=== PATIENT | female | born 1960 | race Caucasian/White ===

== ENCOUNTER 2020-05-23 14:22 | Outpatient (REF) | payer MEDICARE, MEDICAID, SELFPAY ==
--- NOTE | 2020-05-23 | MM_ITS ---
EXAMINATION: MM SCREENING DIGITAL BREAST TOMOSYNTHESIS, BILATERAL CLINICAL INFORMATION: Screening. Asymptomatic. The lifetime risk of breast cancer based on the Tyrer-Cuzick Model is 6%. COMPARISON: Mammography: 04/15/2019, 06/27/2017 TECHNIQUE: Digital breast tomosynthesis is performed in both the craniocaudal and mediolateral oblique views along with computer-aided detection (CAD). Synthesized 2D images are generated from the tomosynthesis. FINDINGS: There are scattered areas of fibroglandular density (ACR BI-RADS breast composition Category b). There are no significant masses, abnormal calcifications, or other abnormalities. The axilla and skin contours are unremarkable. No significant changes. MM/MM tomosynthesis screening BI IMPRESSION: No mammographic evidence of malignancy. ASSESSMENT: BI-RADS 1: Negative RECOMMENDATION: Routine annual mammography screening. This patient's information was entered into a reminder system with a target due date for their next mammogram.
== END 2020-05-23 14:23 | disposition home or self-care (01) ==
LOC: HO.MAMMO 14:22
PROVIDERS: Visit Provider Physician Assistant
DX: Z12.31 Encounter for screening mammogram for malignant neoplasm of breast (principal)
CPT/HCPCS: 77063; 77067

== ENCOUNTER → 2020-06-28 14:38 | Outpatient (BNVA) | payer MEDICARE, MEDICAID, SELFPAY | PROVIDERS: PCP Physician Assistant; Visit Provider Internal Medicine Gastroenterology | DX: Z76.89 Persons encountering health services in other specified circumstances (principal) ==

== ENCOUNTER 2020-07-05 10:00 | Outpatient (RCR) | payer MEDICARE, MEDICAID, SELFPAY | END 2020-07-07 23:55 | disposition home or self-care (01) | LOC: HO.PAOS 10:00 | PROVIDERS: Visit Provider Psychologist | DX: F31.60 Bipolar disorder, current episode mixed, unspecified (principal); F42.9 Obsessive-compulsive disorder, unspecified; F43.10 Post-traumatic stress disorder, unspecified; F44.89 Other dissociative and conversion disorders | CPT/HCPCS: 90834 ==

== ENCOUNTER → 2020-08-25 14:55 | Outpatient (BNVA) | payer MEDICARE, MEDICAID, SELFPAY | PROVIDERS: PCP Physician Assistant; Visit Provider Internal Medicine Gastroenterology | DX: Z13.89 Encounter for screening for other disorder (principal) | CPT/HCPCS: Q3014 ==

== ENCOUNTER → 2020-11-24 12:22 | Outpatient (BNVA) | payer MEDICARE, MEDICAID, SELFPAY | PROVIDERS: PCP Physician Assistant; Visit Provider Internal Medicine Gastroenterology | DX: Z13.89 Encounter for screening for other disorder (principal) | CPT/HCPCS: Q3014 ==

== ENCOUNTER → 2021-03-30 13:02 | Outpatient (BNVA) | payer MEDICARE, MEDICAID, SELFPAY | PROVIDERS: PCP Physician Assistant; Referring Provider Physician Assistant; Visit Provider Internal Medicine Gastroenterology | DX: Z12.11 Encounter for screening for malignant neoplasm of colon (principal); K59.02 Outlet dysfunction constipation; K59.09 Other constipation | CPT/HCPCS: 99212 ==

== ENCOUNTER 2021-04-19 12:33 | Outpatient (REF) | payer MEDICARE, MEDICAID, SELFPAY ==
--- NOTE | ~2021-04-19 | XR_ITS ---
EXAMINATION: XR ABDOMEN KUB CLINICAL INDICATION: Constipation. COMPARISON: None TECHNIQUE: AP view of the abdomen. FINDINGS: There is moderate gas and stool seen in colon without any distention. The small bowel are normal caliber. No radiopaque calculi or organomegaly. No gross bony abnormality seen. XR/XR KUB IMPRESSION: Moderate constipation.
== END 2021-04-19 12:34 | disposition home or self-care (01) ==
LOC: HO.XRAY 12:33
PROVIDERS: PCP Physician Assistant; Visit Provider Internal Medicine Gastroenterology
DX: K59.09 Other constipation (principal)
CPT/HCPCS: 74018

== ENCOUNTER 2021-06-30 14:43 | Outpatient (REF) | payer MEDICARE, MEDICAID, SELFPAY ==
--- NOTE | ~2021-06-30 | MM_ITS ---
EXAMINATION: MM SCREENING DIGITAL BREAST TOMOSYNTHESIS, BILATERAL CLINICAL INFORMATION: Screening. Asymptomatic. The lifetime risk of breast cancer based on the Tyrer-Cuzick Model is 6%. COMPARISON: Mammography: 05/23/2020, 05/15/2019, 06/27/2017 TECHNIQUE: Digital breast tomosynthesis is performed in both the craniocaudal and mediolateral oblique views along with computer-aided detection (CAD). Synthesized 2D images are generated from the tomosynthesis. FINDINGS: There are scattered areas of fibroglandular density (ACR BI-RADS breast composition Category b). There are no significant masses, abnormal calcifications, or other abnormalities. The axilla and skin contours are unremarkable. No developing density or interval significant changes. MM/MM tomosynthesis screening BI IMPRESSION: No mammographic evidence of malignancy. ASSESSMENT: BI-RADS 1: Negative RECOMMENDATION: Routine annual mammography screening. This patient's information was entered into a reminder system with a target due date for their next mammogram.
== END 2021-06-30 14:44 | disposition home or self-care (01) ==
LOC: HO.MAMMO 14:43
PROVIDERS: Visit Provider Physician Assistant
DX: Z12.31 Encounter for screening mammogram for malignant neoplasm of breast (principal)
CPT/HCPCS: 77063; 77067

== ENCOUNTER 2021-07-11 13:15 | Outpatient (REF) | payer MEDICARE, MEDICAID, SELFPAY | END 2021-07-11 13:16 | disposition home or self-care (01) | LOC: HO.LAB 13:15 | PROVIDERS: PCP Physician Assistant | DX: R32 Unspecified urinary incontinence (principal); N39.0 Urinary tract infection, site not specified | CPT/HCPCS: 51798; 87086; 87088; 87186; 99212 ==

== ENCOUNTER 2021-07-14 07:39 | Outpatient (REF) | payer MEDICARE, MEDICAID, SELFPAY ==
[2021-07-14 11:48] LABS: Alanine Aminotransferase 33 U/L (0-31); Albumin Level 4.2 g/dL (3.5-5.0); Alkaline Phosphatase 65 U/L (39-117); Anion Gap 10 (12-20); Aspartate Amino Transferase 30 U/L (5-31); Bilirubin Total 0.4 mg/dL (0.0-1.0); Blood Urea Nitrogen 26 mg/dL (9-16); Calcium 10.4 mg/dL (8.4-10.2); Carbon Dioxide 33 mmol/L (22-29); Chloride 103 mmol/L (96-108); Cholesterol 224 mg/dL; Estimated Average Glucose 103 mg/dL; Estimated Glomerular Filt Rate 35; Glucose Fasting 91 mg/dL (60-99); HDL Cholesterol 66 mg/dL; Hemoglobin A1c % 5.2 %; LDL Cholesterol Calculated 145 mg/dl; Potassium 4.3 mmol/L (3.3-5.1); Sodium 142 mmol/L (135-145); Total Protein 6.6 g/dL (6.5-8.0); Triglycerides 69 mg/dL
== END 2021-07-14 07:40 | disposition home or self-care (01) ==
LOC: HO.HMGCLDS 07:39
PROVIDERS: PCP Physician Assistant; Visit Provider Nurse Practitioner Family
DX: E78.9 Disorder of lipoprotein metabolism, unspecified (principal); R73.09 Other abnormal glucose
CPT/HCPCS: 36415; 80053; 80061; 83036

== ENCOUNTER → 2021-08-07 14:40 | Outpatient (BNVA) | payer MEDICARE, MEDICAID, SELFPAY | PROVIDERS: PCP Physician Assistant; Visit Provider Obstetrics & Gynecology ==

== ENCOUNTER 2021-08-18 13:54 | Outpatient (REF) | payer MEDICARE, MEDICAID, SELFPAY ==
--- NOTE | ~2021-08-18 | MM_ITS ---
EXAMINATION: BONE DENSITOMETRY CLINICAL INDICATION: Encounter for screening for osteoporosis. COMPARISON: This is the patient's baseline examination. TECHNIQUE: Using a [employer] DXA System (software version: 13.1) manufactured by [employer], dual-energy x-ray absorptiometry was performed of the lumbar spine and left hip. The images are of good technical quality. Summary results are attached. FINDINGS: AP SPINE L1-L4: BMD 1.021 g/cm2, Z-score -0.1, T-score -1.3, osteopenia. LEFT FEMUR, NECK: BMD 0.841 g/cm2, Z-score -0.2, T-score -1.4, osteopenia. LEFT FEMUR, TOTAL: BMD 0.899 g/cm2, Z-score 0.1, T-score -0.9, normal. IDENTIFIED RISK FACTORS: Renal, family history (parental hip fracture). Early menopause, secondary osteoporosis. HISTORY OF FRACTURE: None listed. MEDICATIONS: Calcium supplements or multivitamin, vitamin D. MM/XR DEXA axial skeleton IMPRESSION: 1. DIAGNOSIS: Osteopenia based on the lowest T-score value of -1.4 in the femoral neck applying World Health Organization criteria. 2. 10-YEAR FRACTURE RISK PREDICTION, FRAX: Major osteoporotic fracture (clinical spine, forearm, hip or shoulder) 15.0%. Hip fracture 0.8%. 3. Treatment Recommendations: NOF guidelines recommend consideration for treatment in postmenopausal women and men age 50 and older presenting with the following: -A hip or vertebral (clinical or morphometric) fracture. -T-score less than or equal to -2.5 at the femoral neck or spine after appropriate evaluation to exclude secondary causes. -Low bone mass at the hip or spine and a 10-year fracture probability by FRAX of greater than or equal to 3% for hip fracture or greater than or equal to 20% for major osteoporotic fracture based on the [place] adapted WHO algorithm. 4. Other Recommendations: All treatment decisions require clinical judgment and consideration of individual patient factors, including patient preferences, comorbidities, previous drug use, risk factors not captured in the FRAX model (e.g. frailty, falls, vitamin D deficiency, increased bone turnover, interval significant decline in bone density) and possible under or overestimation of fracture risk by FRAX. Additional medical evaluation for secondary cause of low bone mineral density may be appropriate. FUTURE SCAN RECOMMENDATION: People with diagnosed cases of osteoporosis or at high risk for fracture should have regular bone mineral density tests. For patients eligible for Medicare, routine testing is allowed once every 2 years. The testing frequency can be increased to one year for patients who have rapidly progressing disease, those who are receiving or discontinuing medical therapy to restore bone mass, or have additional risk factors.
== END 2021-08-18 13:55 | disposition home or self-care (01) ==
LOC: HO.MAMMO 13:54
PROVIDERS: Visit Provider Nurse Practitioner Family
DX: Z13.820 Encounter for screening for osteoporosis (principal); M85.80 Other specified disorders of bone density and structure, unspecified site; Z78.0 Asymptomatic menopausal state; Z79.899 Other long term (current) drug therapy
CPT/HCPCS: 77080

== ENCOUNTER 2021-09-13 13:00 | Outpatient (RCR) | payer MEDICARE, MEDICAID, SELFPAY ==
--- NOTE | 2021-08-02 15:50 | MHC.PT.EP ---
[facility] [place] Office [place] Office [place] Office [address] Nazanin Ledesma [address] [phone] F: [phone] F: [phone] F: [phone] F: [phone] Physical Therapy Plan of Care Date of Evaluation: Date of Surgery: Diagnosis: Assessment: The patient arrived reporting intermittent urinary incontinence, but more severe constipation and motility issues. The patient has level 1 on the [place] Stool Chart. She reports only 6 cups of water intake/day with 2 caffeinated beverages daily. she also takes a handful of medicines that may be affecting motility. She has poor sitting, standing posture. Poor strength and motor recruitment in her pelvic floor and poor breathing mechanics. Manual therapy to her abdomen revealed palpable stool in her descending colon. Adhesions noted at her umbilicus identified as poor tissue mobility around the umbilicus. She may benefit from abdominal/visceral mobilizations along with diet and lifestyle changes to improve motility. She is a good candidate for skilled pelvic floor PT. Frequency and Duration: The patient will be seen 1x/week x 4 weeks Short Term Goals: 1.The patient to demonstrate proper lifting mechanics for household chore activities to show improved functional mobility. 2. Pt to verbalize understanding of diet and lifestyle changes to facilitate motility. 3. Pt to initiate a gentle general exercise program to help with motility. Nursing Home Goals: 1. Pt to report improved motility to at least 3 bowel movements/week. 2. Pt to have no urinary incontinence in 2 weeks prior to d/c. 3. Pt to be independent with final HEP to maintain gains made in therapy. Treatment Plan: Modalities to reduce pain, spasms and effusion. Manual therapy to restore motion and function. Therapeutic exercise to improve strength and flexibility. Neuromuscular re-education for posture and balance. Therapeutic activities to return to functional activities of daily living. Electronically signed by: Please sign and return to therapist. Thank you for your referral.
--- NOTE | 2021-09-13 14:10 | MHC.PT.DC ---
[facility] [place] Office [place] Office [place] Office [address] Nazanin Ledesma 140 [facility] [phone] F: [phone] F: [phone] F: [phone] F: [phone] Physical Therapy Discharge Report Diagnosis: unspecified urinary incontinence Date of Surgery: Date of Evaluation: 08/02/21 Date of Discharge: 09/13/21 Treatments to Date: 6 Cancellations to Date: No Shows to Date: Discharge Status: Achieved Goals Improved Function Independent with HEP Discharge Summary: the patient reports no pelvic pain. She no longer has urinary incontinence. She still has poor motility which has not seemingly improved. Today the patient will be d/c for pelvic floor therapy. Next session we will add a diagnosis of scoliosis and we will begin a re evaluation and start a new plan of care. She met all of her goals other than her motility goal. She was given a printed HEP and demonstrated understanding of exercises. Electronically signed by: Jasmine Bae PT DPT Please sign and return to therapist. Thank you for your referral.
== END 2022-01-26 14:03 | disposition home or self-care (01) ==
LOC: HO.PT 13:00
PROVIDERS: PCP Physician Assistant
DX: N39.0 Urinary tract infection, site not specified (principal); R32 Unspecified urinary incontinence
CPT/HCPCS: 97110; 97112; 97140; 97162; 97530

== ENCOUNTER 2021-10-02 13:03 | Outpatient (RCR) | payer MEDICARE, MEDICAID, SELFPAY ==
--- NOTE | 2021-10-02 14:18 | MHC.PT.EP ---
[facility] [place] Office [place] Office [place] Office [address] Ledesma [address] [phone] F: [phone] F: [phone] F: [phone] F: [phone] Physical Therapy Plan of Care Date of Evaluation: Date of Surgery: NA Diagnosis: Other idiopathic scoliosis, site unspecified Assessment: Ragini is a 61 year old female who is referred to PT for other idiopathic scoliosis, site unspecified . She reports of recently being diagnosed with scolosis. She denies any pain or trauma. On PT examination she presents with no TTP or pain, significantly impaired posture, decreased scap muscle strength, B LE strength and core stability and altered posture. She is independent with all ADLS and has no difficulty with this. She would benefit from skilled PT to address the aforementioned impairments and improve tolerance to functional activities. Frequency and Duration: The patient will be seen 2/week for 5 weeks. Short Term Goals: 1. Pt will initiate HEP for symptom management in 2 weeks. 2. Pt will be able to move trunk through all planes motion without pain in 3 weeks Noc Analyst Goals: 1. Pt will be able self assess and correction posture every 15 minutes in 4 weeks. 2. Pt will be independent with HEP for maintenance of symptom/ posture in 5 weeks. Treatment Plan: Modalities to reduce pain, spasms and effusion. Manual therapy to restore motion and function. Therapeutic exercise to improve strength and flexibility. Neuromuscular re-education for posture and balance. Therapeutic activities to return to functional activities of daily living. Electronically signed by: Veronica St PT DPT Please sign and return to therapist. Thank you for your referral.
--- NOTE | 2021-10-13 08:39 | MHC.PT.DC ---
[facility] [place] Office [place] Office [place] Office [address] Nazanin Ledesma [address] [phone] F: [phone] F: [phone] F: [phone] F: [phone] Physical Therapy Discharge Report Diagnosis: Other idiopathic scoliosis, site unspecified Date of Surgery: NA Date of Evaluation: 10/02/21 Date of Discharge: 10/13/21 Treatments to Date: 1 Cancellations to Date: 0 No Shows to Date: 0 Discharge Status: Patient Elected to Stop Physician Discontinued Tx Discharge Summary: Ragini called a few days after her evaluation and d/c herself. She stated that her physician advised her to stop PT. She is therefore being d/c from PT. Electronically signed by: Veronica St PT DPT Please sign and return to therapist. Thank you for your referral.
== END 2021-10-13 08:39 | disposition home or self-care (01) ==
LOC: HO.PT 13:03
PROVIDERS: PCP Physician Assistant; Visit Provider Physician Assistant
DX: M41.20 Other idiopathic scoliosis, site unspecified (principal)
CPT/HCPCS: 97110; 97112; 97161

== ENCOUNTER 2021-10-02 14:26 | Outpatient (REF) | payer MEDICARE, MEDICAID, SELFPAY ==
--- NOTE | ~2021-10-02 | XR_ITS ---
EXAMINATION: XR SCOLIOSIS CLINICAL INFORMATION: Scoliosis. COMPARISON: Lumbar spine radiographs 03/26/2018. TECHNIQUE: A single view of the thoracolumbar spine is obtained. FINDINGS: Mild degenerative changes. There is scoliosis as follows: Left convex lower thoracic curvature measures 14 degrees. Right convex lumbar curvature measures 14 degrees. The left iliac crest is slightly higher than the right. The visualized lungs are clear. Moderate stool is seen in the colon. XR/XR scoliosis 1V IMPRESSION: Mild scoliosis as above.
== END 2021-10-02 14:27 | disposition home or self-care (01) ==
LOC: HO.XRAY 14:26
PROVIDERS: PCP Physician Assistant; Visit Provider Physician Assistant
DX: M41.20 Other idiopathic scoliosis, site unspecified (principal)
CPT/HCPCS: 72081

== ENCOUNTER → 2021-10-12 13:15 | Outpatient (BNVA) | payer MEDICARE, MEDICAID, SELFPAY | PROVIDERS: PCP Physician Assistant; Referring Provider Physician Assistant; Visit Provider Internal Medicine Gastroenterology | DX: K59.02 Outlet dysfunction constipation (principal) | CPT/HCPCS: 99212 ==

== ENCOUNTER → 2021-12-29 08:04 | Outpatient (BNVA) | payer MEDICARE, MEDICAID, SELFPAY | PROVIDERS: PCP Physician Assistant; Referring Provider Physician Assistant; Visit Provider Internal Medicine Gastroenterology | DX: K59.02 Outlet dysfunction constipation (principal) | CPT/HCPCS: 99212 ==

== ENCOUNTER → 2022-01-15 13:33 | Outpatient (BNVA) | payer MEDICARE, MEDICAID, SELFPAY | PROVIDERS: PCP Physician Assistant | DX: N32.81 Overactive bladder (principal) | CPT/HCPCS: 51798; 99212 ==

== ENCOUNTER 2022-02-05 08:24 | Outpatient (REF) | payer MEDICARE, MEDICAID, SELFPAY ==
[2022-02-05 11:35] LABS: Estimated Average Glucose 103 mg/dL; Hemoglobin A1c % 5.2 %
[2022-02-05 11:55] LABS: Alanine Aminotransferase 41 U/L (0-31); Albumin Level 4.1 g/dL (3.5-5.0); Alkaline Phosphatase 52 U/L (39-117); Anion Gap 10 (12-20); Aspartate Amino Transferase 30 U/L (5-31); Bilirubin Total 0.3 mg/dL (0.0-1.0); Blood Urea Nitrogen 32 mg/dL (9-16); Calcium 9.5 mg/dL (8.4-10.2); Carbon Dioxide 29 mmol/L (22-29); Chloride 104 mmol/L (96-108); Cholesterol 192 mg/dL; Estimated Glomerular Filt Rate 34; Glucose Fasting 103 mg/dL (60-99); HDL Cholesterol 75 mg/dL; LDL Cholesterol Calculated 108 mg/dl; Potassium 4.3 mmol/L (3.3-5.1); Sodium 139 mmol/L (135-145); Total Protein 6.2 g/dL (6.5-8.0); Triglycerides 46 mg/dL
[2022-02-05 12:03] LABS: TSH reflex Free T4 1.62 uIU/mL (0.32-4.0); Vitamin D 25-OH Total 49.3 ng/mL (>30)
== END 2022-02-05 08:25 | disposition home or self-care (01) ==
LOC: HO.HMGCLDS 08:24
PROVIDERS: Visit Provider Physician Assistant
DX: N18.30 Chronic kidney disease, stage 3 unspecified (principal); R73.09 Other abnormal glucose; E78.9 Disorder of lipoprotein metabolism, unspecified
CPT/HCPCS: 36415; 80053; 80061; 82306; 83036; 84443

== ENCOUNTER → 2022-07-13 09:46 | Outpatient (BNVA) | payer MEDICARE, MEDICAID, SELFPAY | PROVIDERS: PCP Physician Assistant; Referring Provider Physician Assistant; Visit Provider Internal Medicine Gastroenterology | DX: K59.02 Outlet dysfunction constipation (principal) | CPT/HCPCS: 99212 ==

== ENCOUNTER 2022-08-02 13:17 | Outpatient (REF) | payer MEDICARE, MEDICAID, SELFPAY ==
--- NOTE | ~2022-08-02 | MM_ITS ---
EXAMINATION: MM SCREENING DIGITAL BREAST TOMOSYNTHESIS, BILATERAL CLINICAL INFORMATION: Screening. Asymptomatic. The lifetime risk of breast cancer based on the Tyrer-Cuzick Model is 8%. COMPARISON: Mammography: 06/30/2021, 05/23/2020, TECHNIQUE: Digital breast tomosynthesis is performed in both the craniocaudal and mediolateral oblique views along with computer-aided detection (CAD). Synthesized 2D images are generated from the tomosynthesis. Additional right MLO view is provided. FINDINGS: There are scattered areas of fibroglandular density (ACR BI-RADS breast composition Category b). There are no significant masses, abnormal calcifications, or other abnormalities. No developing density or architectural abnormality. There are some fine vascular calcifications anterior outer left breast and mid central 12:00 right breast. The axilla are unremarkable. Skin contours are smooth. MM/MM tomosynthesis screening BI IMPRESSION: No mammographic evidence of malignancy. ASSESSMENT: BI-RADS 2: Benign RECOMMENDATION: Routine annual mammography screening. This patient's information was entered into a reminder system with a target due date for their next mammogram.
== END 2022-08-02 13:18 | disposition home or self-care (01) ==
LOC: HO.MAMMO 13:17
PROVIDERS: Visit Provider Physician Assistant
DX: Z12.31 Encounter for screening mammogram for malignant neoplasm of breast (principal)
CPT/HCPCS: 77063; 77067

== ENCOUNTER 2022-08-13 13:59 | Outpatient (REF) | payer MEDICARE, MEDICAID, SELFPAY ==
--- NOTE | ~2022-08-13 | US_ITS ---
EXAMINATION: US PELVIS CLINICAL INFORMATION: Uterine fibroid disease. COMPARISON: None available. TECHNIQUE: Ultrasound of the pelvis is performed using both transabdominal and transvaginal transducers along with Doppler. Transvaginal imaging is performed due to inadequate visualization transabdominally. FINDINGS: Uterus: The uterus is suboptimally visualized due to overlapping bowel gas, with dimensions are not obtained by the technologist. The endometrial stripe is not seen with certainty. The uterus is smooth in contour and has normal myometrial echogenicity. FIBROIDS: There are 2 fibroids seen. 1. Location: Lower body, myometrial. Size: 2.9 x 1.2 x 2.3 cm. Fibroid characteristics: Hypoechoic. 2. Location: Upper body, myometrial. Size: 2.8 x 2.2 x 2.5 cm. Fibroid characteristics: Heterogeneous echotexture. Adnexa: Both ovaries are nonvisualized. There is no pelvic ascites or fluid collection. No adnexal mass is seen. US/US pelvic and transvaginal IMPRESSION: 1. There is uterine fibroid disease. 2. The uterus is poorly defined. The endometrial stripe is nonvisualized. 3. The bilateral ovaries are nonvisualized.
== END 2022-08-13 14:00 | disposition home or self-care (01) ==
LOC: HO.HMGCX 13:59
PROVIDERS: PCP Physician Assistant; Visit Provider Internal Medicine Gastroenterology
DX: D25.9 Leiomyoma of uterus, unspecified (principal); K59.02 Outlet dysfunction constipation
CPT/HCPCS: 76830; 76856

== ENCOUNTER 2022-09-10 10:00 | Outpatient (RCR) | payer MEDICARE, MEDICAID, SELFPAY | END 2022-09-25 15:26 | disposition home or self-care (01) | LOC: HO.PT 10:00 | PROVIDERS: PCP Physician Assistant; Visit Provider Internal Medicine Gastroenterology | DX: K59.02 Outlet dysfunction constipation (principal) | CPT/HCPCS: 97112; 97140; 97162 ==

== ENCOUNTER → 2023-01-14 10:25 | Outpatient (BNVA) | payer MEDICARE, MEDICAID, SELFPAY | PROVIDERS: PCP Physician Assistant; Visit Provider Internal Medicine Gastroenterology | DX: K59.09 Other constipation (principal) | CPT/HCPCS: 99212 ==

== ENCOUNTER 2023-01-28 09:13 | Outpatient (REF) | payer MEDICARE, MEDICAID, SELFPAY ==
[2023-01-28 11:41] LABS: Hematocrit 38.8 % (37.0-47.0); Hemoglobin 12.7 g/dl (12.0-16.0); Mean Corpuscular HGB Conc 32.7 g/dl (31.0-35.0); Mean Corpuscular Hemoglobin 31.6 pg (27.0-33.0); Mean Corpuscular Volume 96.5 fL (80.0-98.0); Mean Platelet Volume 9.3 fL (9.4-12.3); Platelet Count 134 X10*3/uL (160-400); Red Blood Count 4.02 X10*6/uL (4.20-5.50); Red Cell Distribution Width 12.7 % (11.0-16.0); White Blood Count 2.8 X10*3/uL (4.8-10.8)
[2023-01-28 11:56] LABS: Alanine Aminotransferase 38 U/L (0-31); Albumin Level 4.1 g/dL (3.5-5.0); Alkaline Phosphatase 57 U/L (39-117); Anion Gap 12 (12-20); Aspartate Amino Transferase 33 U/L (5-31); Bilirubin Total 0.4 mg/dL (0.0-1.0); Blood Urea Nitrogen 31 mg/dL (9-16); Calcium 10.6 mg/dL (8.4-10.2); Carbon Dioxide 29 mmol/L (22-29); Chloride 105 mmol/L (96-108); Cholesterol 184 mg/dL; Estimated Glomerular Filt Rate 37; Glucose Fasting 91 mg/dL (60-99); HDL Cholesterol 68 mg/dL; LDL Cholesterol Calculated 105 mg/dl; Potassium 4.4 mmol/L (3.3-5.1); Sodium 142 mmol/L (135-145); Total Protein 6.7 g/dL (6.5-8.0); Triglycerides 58 mg/dL
[2023-01-28 12:13] LABS: TSH reflex Free T4 1.55 uIU/mL (0.32-4.0)
== END 2023-01-28 09:14 | disposition home or self-care (01) ==
LOC: HO.HMGCLDS 09:13
PROVIDERS: PCP Physician Assistant; Visit Provider Physician Assistant
DX: E78.9 Disorder of lipoprotein metabolism, unspecified (principal); N18.30 Chronic kidney disease, stage 3 unspecified; F32.A Depression, unspecified
CPT/HCPCS: 36415; 80053; 80061; 84443; 85027

== ENCOUNTER 2023-02-04 14:30 | Outpatient (AMB) | payer MEDICARE, MEDICAID, SELFPAY ==
[2023-02-04 14:37] VITALS: BP 112/70; PULSE 74; O2SAT 96; BMI 21.0
--- NOTE | 2023-02-04 14:37 | A.OFFPC_ITS ---
Vital Signs 02/04/23 14:37 Height 6 ft 1 in Weight 159 lb 0.4 oz BMI 21.0 BP 112/70 Blood Pressure Location Lt brachial Position Sitting Pulse 74 Pulse Source Pulse Oximeter Temp Source Skin Pulse Oximetry (%) 96 Oxygen Delivery Method Room Air Intake Visit Reasons: Annual exam Intake Note: Patient is here today for a physical. 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: No Allergies No Known Allergies [No Known Allergies*] Allergy (Verified 02/04/23 14:58) Medication List - Last Reconciled 02/04/23 by Sergo Villasenor PA-C amitriptyline 100 mg PO BEDTIME fluoxetine 20 mg PO DAILY lactulose 15 mL PO DAILY lamotrigine 150 mg PO DAILY lorazepam 0.5 mg PO BID PRN magnesium citrate 150 mL PO DAILY 2 days risperidone 4 mg PO BEDTIME Tobacco use date assessed: 02/04/23 Fall risk assessment: No Falls in past year Last assessed Fall Risk: 02/04/23 Dental Screening Dental Screen Date: 02/04/23 Did you have a dental visit in the last 12 months?: Yes Did you have a dental problem in the last 6 months where you did not have access to dental care?: No Was dental information given to patient?: Patient has dentist HPI Annual exam HPI Details patient is a 62-year-old female here today for annual physical ?. Patient has a past medical history significant for generalized anxiety disorder, impaired glucose metabolism, borderline high cholesterol, fibromyalgia, PTSD, chronic constipation. Concern--> reports over the last 9 months having a rash over her right lower abdomen. She reports the rash is very itchy and has not used any ocat-ozc-xaijtyd creams or ointments. .. Chronic constipation:? Continues to suffer with chronic constipation.? Patient also does have muscular pelvic floor dysfunction to which she has done physical therapy for ? Is followed by gastroenterology , has trialed Motegrity though feels it was not so effective .. 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 followed by a occupational medicine specialist.? Most recent creatinine 1.53 . Major depressive disorder:? Patient followed by a therapist and a psychiatrist who manages her mental health meds. She feels stable from a mental health point of view Mammogram: Done in July 2022 BI-RADS 2 Colon cancer screening- UTD With Colonoscopy - done in 2019 Vaccines: Up-to-date with tetanus vaccine, pneumonia vaccine, COVID and flu vaccines Laboratory Tests 11/07/18 02/05/22 01/28/23 10:33 08:32 09:19 WBC 2.8 L RBC 4.02 L Hgb 12.7 Plt Count 144 L 134 L Creatinine 1.53 H Fasting Glucose 103 H Calcium ALT 41 H Cholesterol LDL Cholesterol, C alc TSH 01/28/23 09:19 WBC RBC Hgb Plt Count Creatinine 1.42 H Fasting Glucose Calcium 10.6 H D ALT 38 H Cholesterol 184 LDL Cholesterol, C alc 105 TSH 1.55 ? PFSH Medical History Bipolar disorder Cervical cancer screening Chronic UTI Diabetes mellitus screening Osteoporosis screening Urinary incontinence Surgical History History of colonoscopy Hx of endoscopy Hx of tubal ligation Family History Father Family history of high blood pressure History of macular degeneration Mother Hx of type 2 diabetes mellitus Family history of Alzheimer's disease Social History Household Members: Spouse Housing: House Alcohol intake: never Patient Tobacco Use Status: Never used Tobacco Tobacco use type: Cigarette e-Cigarette/Vaping Use: Never Used Second Hand Smoke Exposure: No Current occupational status: disabled Cognitive needs: No Hearing needs: No Vision needs: No Female Reproductive History Menstrual Age of Menarche: 10 Questionnaire PHQ-9 Over the last 2 weeks, how often have you been bothered by any of the following problems? 1. Little interest or pleasure in doing things: several days (pt being treated ) 2. Feeling down, depressed, or hopeless: not at all 3. Trouble falling or staying asleep, or sleeping too much: not at all 4. Feeling tired or having little energy: not at all 5. Poor appetite or overeating: not at all 6. Feeling bad about yourself - or that you are a failure or have let yourself or your family down: not at all 7. Trouble concentrating on things, such as reading the newspaper or watching television: not at all 8. Moving or speaking so slowly that other people could have noticed. Or the opposite - being so fidgety or restless that you have been moving around a lot more than usual: not at all 9. Thoughts that you would be better off or of hurting yourself in some way: not at all Total score: 1 Depression Screening Interpretation: Negative 89736 - PHQ-9 Billing: Yes Source: Developed by Drs. Conner Bledsoe, Hoa Batista, Zoltan Hopper and colleagues, with an educational braeden from [employer]. Thrive Questionnaire Date Thrive assessed: 08/16/22 AUDIT C Alcohol Use Questionnaire (AUDIT-C) 1. How often do you have a drink containing alcohol?: Never 3. How often do you have six or more drinks on one occasion?: Never Total Score: 0 JORDI-7 AMB Questionnaire JORDI-7 Date JORDI - 7 assessed: 02/04/23 Feeling nervous, anxious, or on edge: 0 = Not at all Not being able to stop or control worryin = Not at all Worrying too much about different things: 0 = Not at all Trouble relaxin = Not at all Being so restless that it is hard to sit still: 0 = Not at all Becoming easily annoyed or irritable: 0 = Not at all Feeling afraid as if something awful might happen: 0 = Not at all Total JORDI-7 score (0-4 normal; 5-9 mild; 10-14 moderate; 15-21 severe): 0 Source: Developed by Drs. Conner Bledsoe, Hoa Batista, Zoltan Hopper and colleagues, with an educational braeden from [employer]. JORDI-7 Assessment Billing JORDI-7 Assessment Tool: JORDI-7 Assessment 27258 Review of Systems Const Denies body aches, Denies chills, Denies excessive sweating, Denies fatigue, Denies fever(s) and Denies headache(s) Eyes Denies blurry vision ENT Denies dysphagia, Denies vertigo, Denies dizziness, Denies headache(s), Denies hearing loss and Denies tinnitus Card Denies chest pain, Denies chest pain with activity, Denies syncope, Denies irregular heart rhythm and Denies dyspnea Resp Denies chest congestion, Denies cough, Denies hemoptysis, Denies dyspnea and Denies wheezing GI Denies abdominal pain, Denies melena, Denies hematochezia, Denies coffee ground emesis, Denies dysphagia, Denies diarrhea, Denies nausea and Denies vomiting Denies urinary frequency, Denies dysuria, Denies urinary hesitancy and Denies urinary urgency Musc Denies arthralgias, Denies limited range of motion, Denies muscle cramps and Denies muscle weakness Skin/Breast Denies rash and Denies skin ulcer Neuro Denies Abnormal speech present, Denies confusion, Denies vertigo, Denies dizziness, Denies syncope, Denies headache(s), Denies memory loss and Denies seizure-like activity Psych Denies anxiety, Denies confusion, Denies depression, Denies memory loss, Denies panic attacks and Denies paranoia Endo Denies excessive sweating, Denies fatigue, Denies flushing, Denies polydipsia and Denies polyuria Aller/Immun Denies wheezing Physical exam (Primary Care) Vital Signs: Last Vital Signs Pulse 74 02/04/23 14:37 BP 112/70 02/04/23 14:37 Pulse Ox 96 02/04/23 14:37 Oxygen Delivery Method Room Air 02/04/23 14:37 BMI result Body Mass Index 21.0 Tobacco/Smoking Status: Tobacco use Status Tobacco use date assessed 02/04/23 02/04/23 14:53 Patient Tobacco Use Status Never used Tobacco 02/04/23 14:37 Tobacco use type Cigarette 02/04/23 14:37 e-Cigarette/Vaping Use Never Used 02/04/23 14:37 PHQ-9: PHQ-9 Score PHQ-9: Total score 1 02/04/23 14:59 Depression Screening Interpretation: Negative Thrive Assessment: Date of Thrive Assessment Date Thrive assessed 08/16/22 02/04/23 14:37 Const General: cooperative, comfortable, no acute distress, alert and awake; No confusion Orientation/consciousness: oriented to person, oriented to place, patient oriented x3 and No confusion HENMT Head: Yes normocephalic Ears: external ears normal and TM's normal bilaterally Face and sinus: No sinus tenderness Mouth: Normal oral and palatal mucosa present and tongue normal Teeth and gingiva: dentition normal and gingiva normal Throat: Yes posterior oropharynx normal, Yes tonsils normal and Yes uvula midline Eyes Conjunctivae: conjunctivae normal Sclerae: sclerae normal Pupils: Equal, round and reactive pupils present EOM: EOMs intact bilaterally Direct Ophthalmoscopy: No no photophobia Neck Neck: Yes no lymphadenopathy, No tender and Yes no JVD Thyroid: Thyroid normal Carotids: no bruits Chest Chest palpation & inspection: no tenderness Resp Effort & Inspection: normal respiratory effort, no audible wheezes, not labored and no stridor Auscultation: no crackles, no rales, no rhonchi and no wheezes Cardio Jugular venous distension: no JVD Rate: regular rate, not bradycardic and not tachycardic Rhythm: regular rhythm Bruits: no carotid bruits Peripheral pulses: Peripheral pulses 2+ throughout GI Inspection: Yes normal to inspection, No abdominal wall ecchymosis and No visible herniation Palpation (GI): Soft to palpation, nontender, no guarding, not rigid and No hepatosplenomegaly present Auscultation: normoactive bowel sounds General: Yes no CVA tenderness Back/Spine/Pelvis Back: no CVA tenderness and No back tenderness Cervical Spine: cervical ROM normal Thoracic/Lumbar Spine: thoracic and lumbar spine normal to inspection, straight leg raise negative bilaterally, No thoraco-lumbar ROM limited and No lumbar spinal tenderness Skin Lesions: no lesions Rashes: no rashes Wounds: no wounds Neuro General: oriented to person, oriented to place, patient oriented x3, CN's II-XI intact bilaterally and No confusion Cranial nerves: Yes Equal, round and reactive pupils present and Yes Normal accommodation reflex present Cognition (Neuro): normal cognition Speech: No Abnormal speech present Gait exam (Neuro): Normal gait present Motor exam (neuro): 5/5 motor strength present throughout Extrem Right upper extremity: full ROM; no cyanosis Left upper extremity: full ROM; no cyanosis Right lower extremity: no edema Left lower extremity: no edema Psych Appearance: grossly normal Mental Status: mental status grossly normal Affect: normal affect Attitude: cooperative Thought process: Normal thought process present Assessment and Plan Assessment & Plan (1) Annual physical exam: Code(s): Z00.00 - Encounter for general adult medical examination without abnormal findings (2) Mild depression: Code(s): F32.0 - Major depressive disorder, single episode, mild Plan: Patient followed by Psychiatry who manages all of her mental health medications. She reports she is fairly stable on all her mental health medications at this time. (3) CKD (chronic kidney disease): Code(s): N18.9 - Chronic kidney disease, unspecified Qualifiers: Chronic kidney disease stage: stage 3 (moderate) Chronic kidney disease stage 3 subtype: unspecified whether 3a or 3b Qualified Code(s): N18.30 - Chronic kidney disease, stage 3 unspecified Plan: Patient is followed by Nephrology for her CKD stage 3 related to lithium use in the past. Most recent creatinine at 1.53. Will continue to avoid nephrotoxin medications. (4) PTSD (post-traumatic stress disorder): Code(s): F43.10 - Post-traumatic stress disorder, unspecified Plan: Again followed by mental therapist and a psychiatrist who manages her mental health medications. (5) Dermatitis: Code(s): L30.9 - Dermatitis, unspecified Plan: Will supply patient with hydrocortisone 1% to use on itchy rash. Orders: Orders Comprehensive [place]. Panel Fast 02/04/23 R73.09 - Other abnormal glucose Complete Blood Count no Diff 02/04/23 N18.30 - Chronic kidney disease, stage 3 unspecified PTHI 02/04/23 N18.30 - Chronic kidney disease, stage 3 unspecified Lipid Panel 02/04/23 E78.9 - Disorder of lipoprotein metabolism, unspecified Medications: New hydrocortisone 1% 1 appl topical TID 30 days PRN 28.4 grams 0RF skin irritation L30.9 - Dermatitis, unspecified Coding Level of Care Code Est Pt Prev Care 40-64y(43640) Diagnoses Annual physical exam Z00.00 Mild depression F32.0 CKD (chronic kidney disease) N18.30 Chronic kidney disease stage: stage 3 (moderate) Chronic kidney disease stage 3 subtype: unspecified whether 3a or 3b PTSD (post-traumatic stress disorder) F43.10 Dermatitis L30.9 Additional Codes JORDI-7 Assessment Billing - JORDI-7 Assessment Tool: JORDI-7 Assessment 05445 ([id number])
== END 2023-02-04 15:21 | disposition home or self-care (01) ==
PROVIDERS: Visit Provider Physician Assistant
DX: Z00.00 Encounter for general adult medical examination without abnormal findings (principal); F32.0 Major depressive disorder, single episode, mild; N18.30 Chronic kidney disease, stage 3 unspecified; F43.10 Post-traumatic stress disorder, unspecified; L30.9 Dermatitis, unspecified
CPT/HCPCS: 99396

== ENCOUNTER 2023-03-29 12:03 | Outpatient (AMB) | payer MEDICARE, MEDICAID, SELFPAY ==
--- NOTE | 2023-03-29 12:06 | MHC.OFFVIS ---
Intake Vital Signs 03/29/23 12:09 Height 6 ft 1 in Weight 154 lb 5.177 oz BMI 20.4 BP 120/80 Blood Pressure Location Lt brachial Position Sitting Pulse 67 Intake Visit Reasons: 4 month follow up Intake Note: Ragini presents in the office as a 4 month follow up. CC: She states that she is not having any concerns today! 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 TESTS: Hx of nml TSH, Ca mild elevated, stage III CKD (labs >1 yr old) ANAL rectal manometry: suspicious for pelvic floor dysfunction, type III, but nml BET colonoscopy: 2019--melanosis coli, Moderate diverticulosis, Moderate hemorrhoids Mr defecogram: --mild descent of anorectal jn but underestimate due to poor evacuation, 3 cm fibroid noted US - 08/20--x 2 myometrial fibroids noted about 3 cm each ? INTERIM: she is not taking any medication for her bowels, still never got motegrity? she feels ok and feels PT exercises finally kicking in mild momentary pain with defecation but bearable and mild no nausea or vomiting no dysphgia no acid reflux depression is well controlled with TCA and risperidone EXAM: GENERAL: The patient is well developed and nontoxic. VITAL SIGNS:see workflow HEENT: Nonicteric sclerae, PERRLA, EOMI. Oropharynx clear. Moist mucous membranes. Conjunctivae appear well perfused. No thyroid mass. CHEST: Chest wall is nontender. HEART: Regular rate and rhythm without murmurs. LUNGS: Clear to auscultation bilaterally. ABDOMEN: Soft, positive bowel sounds, tender upper and left side abdomen, no organomegaly.no flank tenderness SKIN: No rash, no excessive bruising, petechiae, or purpura. NEUROLOGIC: Cranial nerves II-XII intact without motor/sensory deficit. A/P: 1/ chronic constipation : ddx:pelvic floor dysfunction, colonic inertia, or combination of both, also SE of risperidone and TCA meds never seemed to have receivied motegrity PLAN: 1/ doing better, with PT-no further intervention at this time f/u prn ? ? ? PFSH Medical History Bipolar disorder Cervical cancer screening Chronic UTI Diabetes mellitus screening Osteoporosis screening Urinary incontinence Surgical History History of colonoscopy Hx of endoscopy Hx of tubal ligation Family History Father Family history of high blood pressure History of macular degeneration Mother Hx of type 2 diabetes mellitus Family history of Alzheimer's disease Social History Household Members: Spouse Housing: House Alcohol intake: never Patient Tobacco Use Status: Never used Tobacco Tobacco use type: Cigarette e-Cigarette/Vaping Use: Never Used Second Hand Smoke Exposure: No Current occupational status: disabled Cognitive needs: No Hearing needs: No Vision needs: No Female Reproductive History Menstrual Age of Menarche: 10 Physical Exam Vital Signs: Last Vital Signs Pulse 67 03/29/23 12:09 BP 120/80 03/29/23 12:09 BMI result Body Mass Index 20.4 Assessment & Plan Assessment & Plan (1) 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
[2023-03-29 12:09] VITALS: BP 120/80; PULSE 67; BMI 20.4
== END 2023-03-29 13:23 | disposition home or self-care (01) ==
PROVIDERS: PCP Physician Assistant; Visit Provider Internal Medicine Gastroenterology
DX: K59.02 Outlet dysfunction constipation (principal); K59.09 Other constipation
CPT/HCPCS: 99213

== ENCOUNTER → 2023-03-29 12:03 | Outpatient (BNVA) | payer MEDICARE, MEDICAID, SELFPAY | PROVIDERS: PCP Physician Assistant; Visit Provider Internal Medicine Gastroenterology | DX: K59.09 Other constipation (principal); K59.02 Outlet dysfunction constipation | CPT/HCPCS: 99212 ==

== ENCOUNTER 2023-04-08 13:21 | Outpatient (AMB) | payer MEDICARE, MEDICAID, SELFPAY ==
--- NOTE | 2023-04-08 13:20 | A.OFFVIS_ITS ---
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 Complaining of vaginal spotting over last many months. Last Pap/HPV was negative in 2019. Last Mammogram was in 08/20 was BI-RADS 2 Last colonoscopy was in 2019, the recommendation was to repeat in 10 years [facility] Medical History Urinary incontinence Chronic UTI Cervical cancer screening Osteoporosis screening Diabetes mellitus screening Bipolar disorder Surgical History Hx of tubal ligation Hx of endoscopy History of colonoscopy Family History Father Family history of high blood pressure History of macular degeneration Mother Hx of type 2 diabetes mellitus Family history of Alzheimer's disease Social History Household Members: Spouse Housing: House Alcohol intake: never Patient Tobacco Use Status: Never used Tobacco Tobacco use type: Cigarette e-Cigarette/Vaping Use: Never Used Second Hand Smoke Exposure: No Current occupational status: disabled Cognitive needs: No Hearing needs: No Vision needs: No Female Reproductive History Menstrual Age of Menarche: 10 Menopause type: natural Total pregnancies: 2 Full term: 2 Number of Living Children: 2 Date of Mammogram: 08/02/22 Review of Systems Const All systems reviewed & are unremarkable except as noted in HPI and below Card Reports as per HPI Resp Reports as per HPI GI Reports as per HPI and Reports no additional complaints Reports as per HPI Physical Exam Vital Signs: Last Vital Signs BP 116/70 04/08/23 13:21 BMI result Body Mass Index 20.4 Const General: cooperative, healthy appearing and comfortable Chest Chest palpation & inspection: normal inspection of the chest and normal palpation of entire chest wall Breast/axilla inspection: normal inspection of the breasts and normal inspection of the axillae Breast/axilla palpation: normal palpation of the breasts, normal palpation of the axillae and no axillary lymphadenopathy Resp Effort & Inspection: normal respiratory effort Auscultation: clear to auscultation bilaterally Percussion: percussion normal Cardio Palpation: normal PMI Rate: regular rate Rhythm: regular rhythm Heart sounds: no murmurs and no rubs Peripheral pulses: Peripheral pulses 2+ throughout GI Inspection: Yes normal to inspection Palpation (GI): Soft to palpation, nontender, no guarding, not rigid and No hepatosplenomegaly present Percussion: Yes normal to percussion Auscultation: normal bowel sounds Rectal Exam - Female: deferred General: Yes bladder normal to palpation External Female Exam: No lesion Speculum Exam - Vagina: normal appearance of the vagina, normal palpation, normal vaginal discharge and not erythematous Speculum Exam - Cervix: normal appearance of the cervix and normal palpation Bimanual exam- vagina & uterus: normal bimanual exam, normal palpation, uterine size normal, bladder normal to palpation, consistency normal and normal palpation Bimanual Exam- Adnexa, other: normal adnexae, no masses and no tenderness Assessment & Plan Assessment & Plan (1) Well woman exam: Code(s): Z01.419 - Encounter for gynecological examination (general) (routine) without abnormal findings Plan: Cotesting not indicated this year. Instructions given the patient to schedule next screening Mammogram in 08/21. Counseled the patient about the recommended dietary allowance of 1000 mg of Calcium & 600 IU of vitamin D. The patient was instructed to perform monthly self-breast exams and to schedule an annual exam in a year; All questions answered and the patient verbalized understanding. Instructed the patient to schedule annual exam in a year (2) Postmenopausal bleeding: Code(s): N95.0 - Postmenopausal bleeding Plan: Discussed with the patient the differential diagnosis of post menopausal bleeding with normal pelvic exam including but not limited to, endometrial hyperplasia, cancer, polyps and other causes; co testing done, recommended ultrasound to measure the endometrial stripe; discussed with the patient that if the endometrial thickness is 4 mm or less the negative predictive value of endometrial pathology is 99%, otherwise If endometrial thickness is more than 4 mm will proceed with endometrial sampling versus hysteroscopy D&C polypectomy depending on the ultrasound findings. Instructed the patient to schedule an ultrasound follow-up appointment in 2 weeks. All questions answered, the patient verbalized understanding and agreed with the plan. Orders: Orders US pelvic and transvaginal Today N95.0 - Postmenopausal bleeding Coding Level of Care Code Est Pt Prev Care 40-64y(85429) Diagnoses Well woman exam Z01.419 Postmenopausal bleeding N95.0
[2023-04-08 13:21] VITALS: BP 116/70; BMI 20.4
== END 2023-04-08 13:43 | disposition home or self-care (01) ==
LOC: HO.HWS 13:21
PROVIDERS: PCP Physician Assistant; Visit Provider Obstetrics & Gynecology
DX: Z01.419 Encounter for gynecological examination (general) (routine) without abnormal findings (principal); N95.0 Postmenopausal bleeding
CPT/HCPCS: 99396

== ENCOUNTER → 2023-04-08 13:21 | Outpatient (BNVA) | payer MEDICARE, MEDICAID, SELFPAY | PROVIDERS: PCP Physician Assistant; Visit Provider Obstetrics & Gynecology ==

== ENCOUNTER 2023-04-22 13:43 | Outpatient (REF) | payer MEDICARE, MEDICAID, SELFPAY ==
--- NOTE | ~2023-04-22 | US_ITS ---
EXAMINATION: US PELVIS COMPLETE US PELVIS ENDOVAGINAL CLINICAL INFORMATION: Is menopausal bleeding COMPARISON: Ultrasound pelvis from 08/13/2022 TECHNIQUE: Transabdominal and transvaginal images of the pelvis were obtained. FINDINGS: UTERUS: Anteverted. Normal size and contour, measuring approximately 2.9 x 4.1 cm (cervix to fundus x AP x transverse). Multiple uterine fibroids are noted largest measuring up to 1.8 cm. Uniform, homogeneous endometrium measures 0.1 cm in width. RIGHT OVARY: Right ovary not well visualized. No right adnexal masses or collections noted. LEFT OVARY: Left ovary not well visualized. No left adnexal masses or collections noted. FREE FLUID: Small amount of free fluid is noted. ADDITIONAL FINDINGS: Echogenic debris noted in the urinary bladder. US/US pelvic and transvaginal IMPRESSION: 1. Multiple uterine fibroids are noted largest measuring up to 1.8 cm. 2. Uniform, homogeneous endometrium measures 0.1 cm in width. 3. Small amount of free fluid in the pelvis. 4. Echogenic debris noted in the urinary bladder. 5. Bilateral ovaries not well visualized. No adnexal masses or collections noted.
== END 2023-04-22 13:44 | disposition home or self-care (01) ==
LOC: HO.US 13:43
PROVIDERS: PCP Physician Assistant; Visit Provider Obstetrics & Gynecology
DX: N95.0 Postmenopausal bleeding (principal)
CPT/HCPCS: 76830; 76856

== ENCOUNTER 2023-07-15 13:29 | Outpatient (REF) | payer MEDICARE, SELFPAY | END 2023-07-15 13:30 | disposition home or self-care (01) | LOC: HO.LNP 13:29 | PROVIDERS: PCP Physician Assistant; Visit Provider Obstetrics & Gynecology | DX: N95.0 Postmenopausal bleeding (principal); D25.9 Leiomyoma of uterus, unspecified; R93.41 Abnormal radiologic findings on diagnostic imaging of renal pelvis, ureter, or bladder | CPT/HCPCS: 58100; 88305 ==

== ENCOUNTER 2023-07-15 13:29 | Outpatient (AMB) | payer MEDICARE, SELFPAY ==
--- NOTE | 2023-07-15 13:35 | MHC.OFFVIS ---
Intake Vital Signs 07/15/23 13:38 Height 6 ft 1 in BP 110/74 Intake Visit Reasons: Ultrasound Follow up/DO NOT RS Allergies No Known Allergies [No Known Allergies*] Allergy (Verified 04/08/23 13:26) HPI HPI Comments History of Present Illness Details The patient is presenting for follow-up ultrasound regarding postmenopausal bleeding. Pelvic ultrasound showed the following: UTERUS: Anteverted. Normal size and contour, measuring approximately 2.9 x 4.1 cm (cervix to fundus x AP x transverse). Multiple uterine fibroids are noted largest measuring up to 1.8 cm. Uniform, homogeneous endometrium measures 0.1 cm in width. RIGHT OVARY: Right ovary not well visualized. No right adnexal masses or collections noted. LEFT OVARY: Left ovary not well visualized. No left adnexal masses or collections noted. FREE FLUID: Small amount of free fluid is noted. ADDITIONAL FINDINGS: Echogenic debris noted in the urinary bladder. [facility] Medical History Urinary incontinence Chronic UTI Cervical cancer screening Osteoporosis screening Diabetes mellitus screening Bipolar disorder Surgical History Hx of tubal ligation Hx of endoscopy History of colonoscopy Family History Father Family history of high blood pressure History of macular degeneration Mother Hx of type 2 diabetes mellitus Family history of Alzheimer's disease Social History Household Members: Spouse Housing: House Alcohol intake: never Patient Tobacco Use Status: Never used Tobacco Tobacco use type: Cigarette e-Cigarette/Vaping Use: Never Used Second Hand Smoke Exposure: No Current occupational status: disabled Cognitive needs: No Hearing needs: No Vision needs: No Female Reproductive History Menstrual Age of Menarche: 10 Review of Systems Const All systems reviewed & are unremarkable except as noted in HPI and below Reports as per HPI and Reports no additional complaints GI Reports no additional complaints Reports no additional complaints Physical Exam Vital Signs: Last Vital Signs BP 110/74 07/15/23 13:38 Office Procedures Endometrial Biopsy Details: The patient was counseled regarding the indication and benefits of endometrial sampling to rule out endometrial pathology including not limited to endometrial hyperplasia or endometrial cancer and others; The alternatives (Either do nothing vs. hysteroscopy D&C) & the risks were discussed with the patient including but not limited: pain, uterine perforation, bleeding, infection, possible injury to bladder, bowel, ureter, possible need for blood transfusion with all its possible risks. The patient verbalized understanding all questions answered and signed consent. The patient was placed into the dorsal lithotomy position; a speculum was inserted in the vagina. Using aseptic technique for the procedure, the cervix was cleansed with Betadine. The anterior lip of the cervix was grasped with a single tooth tenaculum. The uterus was sounded to 5 cm with a 4 mm Pipelle was used. Tissues samples were obtained and placed in formalin, in a patient labeled container and sent to the pathology department. At the end of the procedure, there was minimal bleeding noted The patient tolerated the procedure well and was discharged in good condition with the following instructions: Nothing in the vagina until the bleeding stops. No sex until the bleeding stops, to call if any of the following occurs: fever (>100.4), flu-like symptoms, abdominal pain, heavy bleeding, four smelling vaginal discharge. The patient was instructed to schedule a Follow up appointment in 2 weeks to discuss pathology results of the biopsy and treatment options. This note was generated with a voice recognition program. Some errors may have been overlooked during the review of this note. Sometimes these errors may affect the content or meaning of a given sentence. [id number] Biopsy Assessment & Plan Assessment & Plan (1) Postmenopausal bleeding: Comment: Recurrent Code(s): N95.0 - Postmenopausal bleeding Plan: Discussed the patient the finding on ultrasound showing a 1 mm endometrial thickness, since the patient is having recurrent episodes of vaginal bleeding recommended endometrial sampling. The negative predictive value, positive predictive value, Sensitivity, specificity of using ultrasound measurement of endometrial stripe to detecting endometrial pathology including hyperplasia , polyp or cancer were discussed with the patient. Recommended to the patient that the next step is an endometrial sampling via hysteroscopy D&C possible polypectomy versus endometrial biopsy to r/o endometrial pathology including hyperplasia or cancer. All the pros and cons risks and benefits of each approach were discussed with the patient, endometrial biopsy being less invasive, office procedure with less sensitivity and inability diagnose a polyp and removal versus hysteroscopy done under anesthesia more invasive more sensitive to endometrial cancer and possibility of diagnosing and endometrial polyp with the possibility of polypectomy. All questions were answered pt verbalized understanding and decided to proceed with endometrial biopsy. EMB done, see procedure note (2) Uterine fibroid: Code(s): D25.9 - Leiomyoma of uterus, unspecified Plan: Discussed with the patient the findings on pelvic ultrasound & the risk of myosarcoma; discussed with the patient the options of treatment including expectant management versus hysterectomy; the pros and cons, risks benefits of each approach were discussed with the patient including the fact that in cases of myosarcoma, surgical treatment can lead to early diagnosis and positively affects the prognosis; after further discussion, the patient decided to proceed with expectant management. Will repeat pelvic ultrasound periodically. Instructions given to patient to call in case any of the following occurs: pressure symptoms, abnormal uterine bleeding, pelvic pain; and to schedule a future office follow-up appointment for reassessment and to order a repeat ultrasound . All questions answered, the patient verbalized understanding and agreed with the plan . (3) Abnormal ultrasound of bladder: Code(s): R93.41 - Abnormal radiologic findings on diagnostic imaging of renal pelvis, ureter, or bladder Plan: Discussed the patient the finding on ultrasound showing Debris in the bladder, will refer to Urology for further management Orders: Orders AMB Endometrial Biopsy Today N95.0 - Postmenopausal bleeding Referrals Urology Referral R93.41 - Abnormal radiologic findings on diagnostic imaging of renal pelvis, ureter, or bladder Coding Level of Care Code Est Pt Level 3 (05545) Procedure Only Diagnoses Postmenopausal bleeding N95.0 Uterine fibroid D25.9 Abnormal ultrasound of bladder R93.41 CPT Codes Endometrial Biopsy - CPT: 27260-Oysrmfmfkgw Biopsy ([id number])
[2023-07-15 13:38] VITALS: BP 110/74
== END 2023-07-15 14:07 | disposition home or self-care (01) ==
LOC: HO.HWS 13:29
PROVIDERS: PCP Physician Assistant; Visit Provider Obstetrics & Gynecology
DX: N95.0 Postmenopausal bleeding (principal); D25.9 Leiomyoma of uterus, unspecified; R93.41 Abnormal radiologic findings on diagnostic imaging of renal pelvis, ureter, or bladder
CPT/HCPCS: 58100

== ENCOUNTER 2023-08-08 09:59 | Outpatient (REF) | payer MEDICARE, SELFPAY | END 2023-08-08 10:00 | disposition home or self-care (01) | LOC: HO.LNP 09:59 | PROVIDERS: PCP Physician Assistant; Visit Provider Obstetrics & Gynecology | DX: N95.0 Postmenopausal bleeding (principal) | CPT/HCPCS: 58100; 88305 ==

== ENCOUNTER 2023-08-08 09:59 | Outpatient (AMB) | payer MEDICARE, SELFPAY ==
--- NOTE | 2023-08-08 10:01 | A.OFFVIS_ITS ---
Intake Vital Signs 08/08/23 10:04 Height 6 ft 1 in Weight 154 lb 5.177 oz BMI 20.4 BP 118/76 Intake Visit Reasons: EMB results per [employer] Operator Required: No Information Interpreted: non-clinical & clinical Training And Development Officer: Training And Development Officer Present (Shelley Barros JOAN) Accompanied by: Self / Same As Patient Allergies No Known Allergies [No Known Allergies*] Allergy (Verified 08/08/23 10:05) Post menopausal: Yes HPI HPI Comments History of Present Illness Details The patient is presenting after endometrial biopsy. The patient has no complaints, no vaginal bleeding, no feverishness chills or abdominal pain. Endometrial biopsy pathology showed the following: Endometrium, biopsy: Superficial strips of atrophic squamous and endocervical epithelium; abundant blood; scant strips of atrophic endometrium; no atypia identified. See comment. COMMENT: Recommend repeat sampling, as clinically appropriate. [facility] Medical History Urinary incontinence Chronic UTI Cervical cancer screening Osteoporosis screening Diabetes mellitus screening Bipolar disorder Surgical History Hx of tubal ligation Hx of endoscopy History of colonoscopy Family History Father Family history of high blood pressure History of macular degeneration Mother Hx of type 2 diabetes mellitus Family history of Alzheimer's disease Social History Household Members: Spouse Housing: House Alcohol intake: never Patient Tobacco Use Status: Never used Tobacco Tobacco use type: Cigarette e-Cigarette/Vaping Use: Never Used Second Hand Smoke Exposure: No Current occupational status: disabled Cognitive needs: No Hearing needs: No Vision needs: No Female Reproductive History Menstrual Age of Menarche: 10 Review of Systems Const All systems reviewed & are unremarkable except as noted in HPI and below Physical Exam General: Yes no CVA tenderness External Female Exam: normal external appearance and normal appearance of the urethra Speculum Exam - Vagina: normal appearance of the vagina, normal palpation, no lesions and no masses Speculum Exam - Cervix: normal appearance of the cervix, normal palpation, no lesions, no masses and nontender Bimanual exam- vagina & uterus: normal bimanual exam, normal palpation, uterine size normal, normal palpation, uterine shape normal, No Cervical tenderness present and non-tender Bimanual Exam- Adnexa, other: normal adnexae Back/Spine/Pelvis Back: no CVA tenderness Office Procedures Endometrial Biopsy Details: The patient was counseled regarding the indication and benefits of endometrial sampling to rule out endometrial pathology including not limited to endometrial hyperplasia or endometrial cancer and others; The alternatives (Either do nothing vs. hysteroscopy D&C) & the risks were discussed with the patient including but not limited: pain, uterine perforation, bleeding, infection, possible injury to bladder, bowel, ureter, possible need for blood transfusion with all its possible risks. The patient verbalized understanding all questions answered and signed consent. The patient was placed into the dorsal lithotomy position; a speculum was inserted in the vagina. Using aseptic technique for the procedure, the cervix was cleansed with Betadine. The anterior lip of the cervix was grasped with a single tooth tenaculum. The uterus was sounded to 6 cm with a 4 mm Pipelle was used. Tissues samples were obtained and placed in formalin, in a patient labeled container and sent to the pathology department. At the end of the procedure, there was minimal bleeding noted The patient tolerated the procedure well and was discharged in good condition with the following instructions: Nothing in the vagina until the bleeding stops. No sex until the bleeding stops, to call if any of the following occurs: fever (>100.4), flu-like symptoms, abdominal pain, heavy bleeding, four smelling vaginal discharge. The patient was instructed to schedule a Follow up appointment in 2 weeks to discuss pathology results of the biopsy and treatment options. This note was generated with a voice recognition program. Some errors may have been overlooked during the review of this note. Sometimes these errors may affect the content or meaning of a given sentence. [id number] Biopsy Assessment & Plan Assessment & Plan (1) Postmenopausal bleeding: Comment: Recurrent Code(s): N95.0 - Postmenopausal bleeding Plan: Discussed with the patient the pathology results . Recommended to the patient that the next step is an endometrial sampling via hysteroscopy D&C possible polypectomy versus endometrial biopsy to r/o endometrial pathology including hyperplasia or cancer. All the pros and cons risks and benefits of each approach were discussed with the patient, endometrial biopsy being less invasive, office procedure with less sensitivity and inability diagnose a polyp and removal versus hysteroscopy done under anesthesia more invasive more sensitive to endometrial cancer and possibility of diagnosing and endometrial polyp with the possibility of polypectomy. All questions were answered pt verbalized understanding and decided to proceed with endometrial biopsy. Repeat EMB done see procedure note Orders: Orders AMB Endometrial Biopsy Today N95.0 - Postmenopausal bleeding Coding Level of Care Code Procedure Only Diagnoses Postmenopausal bleeding N95.0 CPT Codes Endometrial Biopsy - CPT: 71625-Xlxxfaeqpqx Biopsy ([id number])
[2023-08-08 10:04] VITALS: BP 118/76; BMI 20.4
== END 2023-08-08 10:26 | disposition home or self-care (01) ==
LOC: HO.HWS 09:59
PROVIDERS: PCP Physician Assistant; Visit Provider Obstetrics & Gynecology
DX: N95.0 Postmenopausal bleeding (principal)
CPT/HCPCS: 58100

== ENCOUNTER 2023-08-26 15:07 | Outpatient (AMB) | payer MEDICARE, SELFPAY ==
--- NOTE | 2023-08-26 15:08 | MHC.OFFVIS ---
Intake Vital Signs 08/26/23 15:10 Height 6 ft 1 in Weight 154 lb 5.177 oz BMI 20.4 BP 130/72 Intake Visit Reasons: EMB Results Allergies No Known Allergies [No Known Allergies*] Allergy (Verified 08/08/23 10:05) HPI HPI Comments History of Present Illness Details The patient is presenting for follow-up after 2nd endometrial biopsy. Doing well with no complaints. The patient was initially seen for postmenopausal bleeding, a pelvic ultrasound was done showed the following: UTERUS: Anteverted. Normal size and contour, measuring approximately 2.9 x 4.1 cm (cervix to fundus x AP x transverse). Multiple uterine fibroids are noted largest measuring up to 1.8 cm. Uniform, homogeneous endometrium measures 0.1 cm in width. RIGHT OVARY: Right ovary not well visualized. No right adnexal masses or collections noted. LEFT OVARY: Left ovary not well visualized. No left adnexal masses or collections noted. FREE FLUID: Small amount of free fluid is noted. ADDITIONAL FINDINGS: Echogenic debris noted in the urinary bladder The patient had recurrent vaginal bleeding, so an endometrial biopsy done on 07/15/2023 showed the following: Endometrium, biopsy: Superficial strips of atrophic squamous and endocervical epithelium; abundant blood; scant strips of atrophic endometrium; no atypia identified. See comment. COMMENT: Recommend repeat sampling, as clinically appropriate A repeat Endometrial biopsy done on 08/08/19, the pathology showed the following: Abundant blood with rare fragments of benign atrophic endometrium, endocervical glandular epithelium and squamous epithelium, and fragments of stroma (see comment). Comment: The specimen may not be financial services representative of the endometrium The patient has a history of endometrial ablation in the past. [facility] Medical History (Updated 08/26/23 @ 15:25 by Chet Burkett MD) Urinary incontinence Chronic UTI Cervical cancer screening Osteoporosis screening Diabetes mellitus screening Bipolar disorder Surgical History (Updated 08/26/23 @ 15:25 by Chet Burkett MD) History of endometrial ablation Hx of tubal ligation Hx of endoscopy History of colonoscopy Family History Father Family history of high blood pressure History of macular degeneration Mother Hx of type 2 diabetes mellitus Family history of Alzheimer's disease Social History Household Members: Spouse Housing: House Alcohol intake: never Patient Tobacco Use Status: Never used Tobacco Tobacco use type: Cigarette e-Cigarette/Vaping Use: Never Used Second Hand Smoke Exposure: No Current occupational status: disabled Cognitive needs: No Hearing needs: No Vision needs: No Female Reproductive History Menstrual Age of Menarche: 10 Review of Systems Const All systems reviewed & are unremarkable except as noted in HPI and below Reports as per HPI and Reports no additional complaints GI Reports no additional complaints Reports no additional complaints Physical Exam Vital Signs: Last Vital Signs BP 130/72 08/26/23 15:10 BMI result Body Mass Index 20.4 Assessment & Plan Assessment & Plan (1) Postmenopausal bleeding: Comment: Recurrent History of endometrial ablation Code(s): N95.0 - Postmenopausal bleeding Plan: Discussed with the patient the results of the 2 endometrial biopsies, both pathology reports stated that day may not be financial services representative from the endometrium. Explained to the patient the endometrial pathology including endometrial hyperplasia and/or malignancy has not been ruled out yet. Recommended referral to [facility] for further management. All questions answered, the patient verbalized understanding and agreed with the plan. Instructed the patient to call our office back in case a referral appointment is not scheduled, missed or canceled so that we will assist on rescheduling another appointment, the patient verbalized understanding agreed with the plan. Coding Level of Care Code Est Pt Level 3 (94628) Diagnoses Postmenopausal bleeding N95.0
[2023-08-26 15:10] VITALS: BP 130/72; BMI 20.4
== END 2023-08-26 15:47 | disposition home or self-care (01) ==
LOC: HO.HWS 15:07
PROVIDERS: PCP Physician Assistant; Visit Provider Obstetrics & Gynecology
DX: N95.0 Postmenopausal bleeding (principal)
CPT/HCPCS: 99213

== ENCOUNTER → 2023-08-26 15:07 | Outpatient (BNVA) | payer MEDICARE, SELFPAY | PROVIDERS: PCP Physician Assistant; Visit Provider Obstetrics & Gynecology | DX: N95.0 Postmenopausal bleeding (principal) | CPT/HCPCS: 99212 ==

== ENCOUNTER 2023-09-26 15:49 | Outpatient (AMB) | payer MEDICARE, SELFPAY ==
[2023-09-26 15:50] VITALS: BP 126/80; PULSE 66; O2SAT 98; BMI 20.3
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
== END 2023-09-26 16:37 | disposition home or self-care (01) ==
PROVIDERS: PCP Physician Assistant; Visit Provider Nurse Practitioner Family
DX: S61.412A Laceration without foreign body of left hand, initial encounter (principal)
CPT/HCPCS: 99213

== ENCOUNTER 2024-04-06 13:00 | Outpatient (RCR) | payer MEDICARE, SELFPAY ==
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
[2024-03-26 12:15] VITALS: BP 128/84; PULSE 63; TEMP 36.6
[2024-03-26 12:16] VITALS: BMI 19.9
--- NOTE | 2024-03-26 16:32 | HO.PHP ---
Client's case has been opened and reviewed in team.
--- NOTE | 2024-03-31 17:25 | P.HPPSP_ITS ---
HPI Date of Service: 03/31/24 Chief Complaint: PTSD,AUD Sources of Information: patient interviewed, chart reviewed and crisis/core team assessment reviewed HPI Narrative: Patient is a 63 yo female with history of Bipolar I Disorder, PTSD, OCD who was referred by her therapist. She has been maintained on current medication regime for many years including risperidone 4 mg qhs, lamotrigine 300 mg qhs, amitriptyline 200 mg qhs, fluoxetine 80 mg and lorazepam 0.5 mg TID prn anxiety. She reports her mood is a little depressed in the past 2 months, but indicates that anxiety is the reason she is here. She is hoping to work on coping skills, and notes that she is a bit flummoxed as to why she is having so much difficulty seeing as I have done a lot of DBT, I learned a lot of DBT skills but I'm having trouble using them or something...I'm just struggling . She complains that she is not getting as much out of groups as she used to during previous admissions in terms of coping skills, they dont do it like they used to but has difficulty articulating what is different now, drawing a blank for several seconds, she points out right now...like nothing. I'm not sure what I was trying to say . She shares that groups have been challenging because she is experiencing difficulty articulating thoughts/responses, information retrieval and experiencing word finding difficulty. When asked if anxiety is getting in the way, she initially agrees it could be this, although she denies any issues with somtic anxiety or panic attacks. She endorses generalized anxiety, but indicates most of her anxiety is centered around getting a little disorganized and then struggling with concentration, and spends most of the discussion talking about her anxiety as it relates to these cognitive problems. Aside from marital stressors which have mostly improved in the past few weeks since an argument with her was an initial factor to her recent exacerbation. She reports sleep is good. APpetite stable i've always been a picky eater . No change in weight. Past Psychiatric History: Reports history of manic episodes and IPLOC x1 around age 18 Previous [facility] admission in 2019 Has been maintained on current medication regime, anx specifically Lamictal 300 mg qhs, risperidone 4 mg qd, amitriptyline 200 mg qhs for at least 15-20 years. She is also on lorazepam 0.5- 1 mg prn PMFSH Medical History (Updated 04/01/24 @ 11:30 by Gypsy Roy MD) Urinary incontinence Chronic UTI Cervical cancer screening Osteoporosis screening Diabetes mellitus screening Bipolar disorder Narrative: chronic constipation CKD stage III s/p TL Denies seizures Denies concussions/TBI postmenopausal Surgical History (Updated 08/26/23 @ 15:25 by Chet Burkett MD) History of endometrial ablation Hx of tubal ligation Hx of endoscopy History of colonoscopy Social History: x 33 yrs, lives at home with . Reports things are good at home On disability since 2009 for MH and health issues Substance History: history of Alcohol addiction, 39 years sober Diagnostics Vital Signs (24Hr): BMI result Body Mass Index 19.9 Meds/Allergies Meds Home Medications ?Medication ?Instructions ?Recorded ?Confirmed ?Type amitriptyline 100 mg tablet 200 mg PO BEDTIME 06/28/20 03/26/24 History fluoxetine 20 mg capsule 80 mg PO DAILY 06/28/20 03/26/24 History lamotrigine 150 mg tablet 300 mg PO BEDTIME 06/28/20 03/26/24 History risperidone 4 mg tablet 4 mg PO BEDTIME 12/29/21 03/26/24 History lorazepam 0.5 mg tablet 0.5 mg PO TID PRN Anxiety 03/26/24 03/26/24 History Allergies Allergies Allergy/AdvReac Type Severity Reaction Status Date / Time No Known Allergies Allergy Verified 09/26/23 15:52 [No Known Allergies*] Mental Status Exam Mental Status Exam Narrative: She presents with flat affect (with moments of breakthrough affect), diminished blinking, delayed responses with appropriate answers to questions, paucity but overall logical content of thoughts no AH or VH. She describes having problems with expressive language, but denies any receptive language problem I hear the question, but I have no answer, my head is empty at that moment. Nothing is coming to my mind . She also complains of forgetfulness and some disorientation (forgetting why she got up or came to a room in the house). This she suspects has been going on for over a year, not new but also says I dont think it was this bad a few years ago . She says she will ask her . Patient presenting with s/s of drug-induced parkinsonism - masked face, and is e specially noted to be expressionless and still when thought blocked, slow to respond but ultimately does answer questions appropriately. She is aware of the pauses and relays that it is disruptive to her ability to think clearly, and her ability to communicate fluidly, and is bothersome to her. She reports her mood as anxious, little depressed. Denies any thoughts of harming self or others. No evidence of barrett or psychosis. Insight/judgment are fair but adequate. 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) r/o MCI related to other neurocognitive causes or medical conditions (eg nutri tional deficits) (4) OCD (obsessive compulsive disorder): Status: Acute Code(s): F42.9 - Obsessive-compulsive disorder, unspecified (5) PTSD (post-traumatic stress disorder): Status: Acute Code(s): F43.10 - Post-traumatic stress disorder, unspecified (6) Alcohol dependence in remission: Status: Acute Code(s): F10.21 - Alcohol dependence, in remission Plan Admit to [facility] VS reviewed: devorah, BP 128/84;?63 bpm patient apprehensive about making any medication changes, and I agree to reach out to her provider to review: First would lower dose of risperidone from 4 mg to 3 mg qhs (and can allow for remaining 1mg to be split and used as prn) to see if she can tolerate lower dose without causing destabilization may consider addition of low dose pramipexole high dose TCA likely contributing to chronic constipation for now continue regular medications?at current doses per patient preference Routine lab work ordered EKG, routine for baseline QTc for medication considerations UDS as indicated MassPat reviewed Continue to monitor as per protocol Patient educated on: diagnosis, medication risk/benefits, substance abuse and medical condition Informed Consent: understands Reason for continued partial hosp. stay Substantial Risk for: inability to function and med/psych decompensation Certification I certify that partial hospital treatment is medically necessary due to the symptoms and problems resulting from the patient's mental illness and the failure to treat the patient at the partial hospital level of care would likely result in the patient requiring inpatient psychiatric care which could not be prevented at a less intensive level of care. Time Spent With Patient Time: Total time managing care of this patient today _60___ minutes.
--- NOTE | 2024-04-02 12:53 | HO.PHP ---
Ragini left a voicemail stating that she is withdrawing herself from the program because she feels her issues are only minor. PHP staff were made aware and will be reaching out to complete the discharge.
== END 2024-04-06 23:59 | disposition home or self-care (01) ==
LOC: HO.PHPA 13:00
PROVIDERS: Visit Provider Psychiatry & Neurology Psychiatry
DX: F31.9 Bipolar disorder, unspecified (principal); F42.9 Obsessive-compulsive disorder, unspecified; F43.10 Post-traumatic stress disorder, unspecified; F41.1 Generalized anxiety disorder
CPT/HCPCS: 90791; 90853

== ENCOUNTER 2024-05-05 13:50 | Outpatient (REF) | payer MEDICARE, SELFPAY | END 2024-05-05 13:51 | disposition home or self-care (01) | LOC: HO.LAB 13:50 | PROVIDERS: PCP Physician Assistant; Visit Provider Urology | DX: N39.0 Urinary tract infection, site not specified (principal); B96.20 Unspecified Escherichia coli [E. coli] as the cause of diseases classified elsewhere | CPT/HCPCS: 81003; 87086; 87088; 87186; 99202 ==

== ENCOUNTER 2024-05-05 13:50 | Outpatient (AMB) | payer MEDICARE, SELFPAY ==
--- NOTE | 2024-05-05 14:00 | A.OFFVIS_ITS ---
Intake Visit Reasons: Pelvis US Finding(Echogenic debris) Intake Note: New patient is present for Pelvis Ultrasound Findings( Echogenic Debris) Patient was previous seen in Urology office in 2021 for Overactive Bladder and Urinary Tract Infections Last PVR 2021: 161 Wellness Nurse Required: No Accompanied by: Self / Same As Patient Allergies No Known Allergies [No Known Allergies*] Allergy (Verified 07/08/24 11:00) HPI Comments Details: Ragini is a pleasant female. She is a patient of Dr. Villasenor. 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 sciences instructor - only started recently Encouraged to use 3 times per week Plan office cystoscopy Bladder debris Transvaginal ultrasound - Echogenic debris noted in the urinary bladder Recurrent UTI E coli ampicillin and Cipro resistant 05/21 PFSH Medical History Urinary incontinence Chronic UTI Cervical cancer screening Osteoporosis screening Diabetes mellitus screening Bipolar disorder Surgical History History of endometrial ablation Hx of tubal ligation Hx of endoscopy History of colonoscopy Family History Father Family history of high blood pressure History of macular degeneration Mother Hx of type 2 diabetes mellitus Family history of Alzheimer's disease Social History Household Members: Spouse Housing: House Alcohol intake: never Patient Tobacco Use Status: Former Tobacco user Tobacco use type: Cigarette e-Cigarette/Vaping Use: Never Used Second Hand Smoke Exposure: No service: No Current occupational status: disabled Cognitive needs: No Hearing needs: No Vision needs: No Female Reproductive History Menstrual Age of Menarche: 10 Review of Systems Const Denies chills and Denies fever(s) Card Reports no additional complaints and Denies syncope Resp Denies cough GI Denies abdominal pain and Denies heartburn Reports as per HPI and Denies change in libido Neuro Denies syncope Psych Denies change in libido Endo Denies change in libido Physical Exam Const General: cooperative, healthy appearing, comfortable and no acute distress Orientation/consciousness: patient oriented x3 HEENT Face and sinus: Yes normal facial exam Mouth: moist mucous membranes Neck Neck: Yes normal visual inspection, Yes full ROM and Yes trachea midline Chest Chest palpation & inspection: normal inspection of the chest Resp Effort & Inspection: normal respiratory effort, able to speak in complete sentences and no respiratory distress GI Inspection: Yes normal to inspection Back/Spine/Pelvis Cervical Spine: normal cervical lordosis Thoracic/Lumbar Spine: thoracic and lumbar spine normal to inspection Skin General skin exam: no rashes or lesions noted Neuro General: patient oriented x3, gait normal, tone normal and moves all extremities Extrem General: Yes normal to inspection and Yes capillary refill normal Results AMB Urinalysis, Automated UA Leukoctes 500 Venecia/uL Last Edit by Karen Talamantes [facility] on 05/05/24 14:19 UA Nitrite Positive Last Edit by Karen Talamantes [facility] on 05/05/24 14:19 UA Urobilinogen 0.2 mg/dL Last Edit by Karen Talamantes [facility] on 05/05/24 14:1 9 UA Protein 0 mg/dL Last Edit by Karen Talamantes [facility] on 05/05/24 14:19 UA pH 7.0 Last Edit by Karen Talamantes [facility] on 05/05/24 14:19 UA Blood 10 Dylan/uL Last Edit by Karen Talamantes [facility] on 05/05/24 14:19 UA Specific Sherwood 1.010 Last Edit by Karen Talamantes [facility] on 05/05/24 14: 19 UA Ketone Negative Last Edit by Karen Talamantes [facility] on 05/05/24 14:19 UA Bilirubin 0 mg/dL Last Edit by Karen Talamantes [facility] on 05/05/24 14:19 UA Glucose 0 mg/dL Last Edit by Karen Talamantes [facility] on 05/05/24 14:19 Results Reviewed Results Reviewed: Laboratory Last Values Urine pH (Auto) 7.0 05/05/24 14:05 Specific Sherwood (Auto) 1.010 05/05/24 14:05 Urine Protein (Auto) 0 mg/dL 05/05/24 14:05 Glucose (UA)(Auto) 0 mg/dL 05/05/24 14:05 Urine Ketones (Auto) Negative 05/05/24 14:05 Urine Blood (Auto) 10 Dylan/uL 05/05/24 14:05 Urine Nitrite (Auto) Positive 05/05/24 14:05 Urine Bilirubin (Auto) 0 mg/dL 05/05/24 14:05 Urine Urobilinogen (Auto) 0.2 mg/dL 05/05/24 14:05 Leukocyte Esterase (Auto) 500 Venecia/uL 05/05/24 14:05 Assessment & Plan Assessment & Plan (1) Chronic UTI: Code(s): N39.0 - Urinary tract infection, site not specified Category: Medical Plan Office cystoscopy Orders: Orders AMB Post Void Residual by ultrasound 05/05/24 R32 - Unspecified urinary incontinence AMB Urinalysis Automated 05/05/24 Z13.9 - Encounter for screening, unspecified, N39.0 - Urinary tract infection, site not specified Urine Culture 05/05/24 N39.0 - Urinary tract infection, site not specified Patient Instructions: Imaging studies, laboratory and physical exam results were discussed and reviewed in detail. No major barriers to patient understanding were identified. An opportunity to ask questions regarding the treatment plan was provided. All questions were answered. The patient expressed understanding and agreement with the above treatment plan. The patient is aware they should contact our office by phone for worsening of their current condition or the appearance of new urologic symptoms. Compliance is encouraged with any medications and followup testing that is ordered. It is a privilege to participate in the urologic care of your patient. If you have any questions or concerns regarding treatment for the above conditions, or other urologic issues, please do not hesitate to contact me. The office telephone contact is [phone]. This note is constructed using voice recognition software. While every effort has been made to ensure accuracy portfolio accountant errors may have been included. Yours sincerely, Dr Umair Mojica MD, [facility] - Urology Providers of Expert, Compassionate Care for the Genitourinary System Coding Level of Care Code New Pt Level 3 (12879) Diagnoses Chronic UTI N39.0
== END 2024-05-05 14:48 | disposition home or self-care (01) ==
PROVIDERS: PCP Physician Assistant; Visit Provider Urology
DX: N39.0 Urinary tract infection, site not specified (principal)
CPT/HCPCS: 99203

== ENCOUNTER 2024-05-13 09:55 | Outpatient (AMB) | payer MEDICARE, SELFPAY ==
--- NOTE | 2024-05-13 10:06 | MHC.PC.OV ---
Vital Signs 05/13/24 10:07 Height 6 ft 1 in Weight 154 lb BMI 20.3 BP 142/90 H Blood Pressure Location Lt brachial Position Sitting Pulse 78 Pulse Source Pulse Oximeter Pulse Oximetry (%) 98 Oxygen Delivery Method Room Air Intake Visit Reasons: bone density test results - see comments Inside Channel Account Manager Required: No Accompanied by: Self / Same As Patient Allergies No Known Allergies [No Known Allergies*] Allergy (Verified 05/13/24 10:47) Medication List - Last Reconciled 05/13/24 by Sergo Villasenor PA-C conjugated estrogens (Premarin) vaginal DAILY fluoxetine 80 mg PO DAILY lamotrigine 300 mg PO BEDTIME lorazepam 0.5 mg PO TID PRN risperidone 4 mg PO BEDTIME sulfamethoxazole-trimethoprim 800-160 mg (Bactrim DS) 1 tab PO BID 5 days Tobacco use date assessed: 05/13/24 Fall risk assessment: No Falls in past year Last assessed Fall Risk: 05/13/24 Dental Screening Dental Screen Date: 05/13/24 Did you have a dental visit in the last 12 months?: Yes Did you have a dental problem in the last 6 months where you did not have access to dental care?: No Was dental information given to patient?: Patient has dentist HPI bone density test results - see comments HPI Details patient is a 64-year-old female here today for a follow-up visit ?. Patient has a past medical history significant for generalized anxiety disorder, impaired glucose metabolism, borderline high cholesterol, fibromyalgia, PTSD, chronic constipation She is interested in the results of her bone density screening in 2021 which did show osteopenia and a FRAX score of 15%. She is Willing to repeat bone density screening. Also noted a recent psych admission for worsening depression , disorganized thoughts and PTSD. Does seem that she has some what depressed today and she is very teary-eyed and often cries during exam. She has upcoming appointment with her psychiatrist to discuss her medication and how she is feeling. [facility] Medical History Urinary incontinence Chronic UTI Cervical cancer screening Osteoporosis screening Diabetes mellitus screening Bipolar disorder Surgical History History of endometrial ablation Hx of tubal ligation Hx of endoscopy History of colonoscopy Family History Father Family history of high blood pressure History of macular degeneration Mother Hx of type 2 diabetes mellitus Family history of Alzheimer's disease Social History Household Members: Spouse Housing: House Alcohol intake: never Patient Tobacco Use Status: Former Tobacco user Tobacco use type: Cigarette e-Cigarette/Vaping Use: Never Used Second Hand Smoke Exposure: No service: No Current occupational status: disabled Cognitive needs: No Hearing needs: No Vision needs: No Female Reproductive History Menstrual Age of Menarche: 10 Questionnaire PHQ-9 Over the last 2 weeks, how often have you been bothered by any of the following problems? 1. Little interest or pleasure in doing things: several days (pt being treated ) 2. Feeling down, depressed, or hopeless: not at all 3. Trouble falling or staying asleep, or sleeping too much: not at all 4. Feeling tired or having little energy: not at all 5. Poor appetite or overeating: not at all 6. Feeling bad about yourself - or that you are a failure or have let yourself or your family down: not at all 7. Trouble concentrating on things, such as reading the newspaper or watching television: not at all 8. Moving or speaking so slowly that other people could have noticed. Or the opposite - being so fidgety or restless that you have been moving around a lot more than usual: not at all 9. Thoughts that you would be better off or of hurting yourself in some way: not at all Total score: 1 Depression Screening Interpretation: Negative Depression Screening Done: Yes 42825 - PHQ-9 Billing: Yes Source: Developed by Drs. Conner Bledsoe, Hoa Batista, Zoltan Hopper and colleagues, with an educational braeden from [employer]. Thrive Questionnaire Date Thrive assessed: 05/13/24 I am a: Patient What is your living situation today?: I have a steady place to live Within the past 12 months, did the food you bought not last and you didn't have the money to get more?: Never true Within the past 12 months, did you worry whether your food would run out before you got money to buy more?: Never true Do you have trouble paying for medicines?: No Do you have trouble getting transportation to medical appointments?: No Do you have trouble paying your heating and electricity bill?: No Do you have trouble taking care of your child, family member or friend?: No Do you have trouble with day-to-day activities such as bathing, preparing meals, shopping, managing finances, etc.?: No Are you currently unemployed and looking for a job?: No Are you interested in more education?: No Please select the resources that you would like help with: None Currently or been in a relationship where the following occur: No concerns reported THRIVE Score: 0 AUDIT C Alcohol Use Questionnaire (AUDIT-C) 1. How often do you have a drink containing alcohol?: Never 3. How often do you have six or more drinks on one occasion?: Never Total Score: 0 JORDI-7 AMB Questionnaire JORDI-7 Date JORDI - 7 assessed: 05/13/24 Feeling nervous, anxious, or on edge: 0 = Not at all Not being able to stop or control worryin = Not at all Worrying too much about different things: 0 = Not at all Trouble relaxin = Not at all Being so restless that it is hard to sit still: 0 = Not at all Becoming easily annoyed or irritable: 0 = Not at all Feeling afraid as if something awful might happen: 0 = Not at all Total JORDI-7 score (0-4 normal; 5-9 mild; 10-14 moderate; 15-21 severe): 0 Source: Developed by Drs. Conner Bledsoe, Hoa Batista, Zoltan Hopper and colleagues, with an educational braeden from [employer]. JORDI-7 Assessment Billing JORDI-7 Assessment Tool: JORDI-7 Assessment 39822 Review of Systems Const Denies headache(s) Eyes Denies loss of vision ENT Denies vertigo, Denies dizziness, Denies headache(s) and Denies sore throat Card Denies chest pain, Denies leg edema and Denies lightheadedness Resp Denies cough, Denies hemoptysis and Denies wheezing GI Denies abdominal pain, Denies melena, Denies constipation, Denies diarrhea and Denies vomiting Denies urinary frequency, Denies dysuria and Denies urinary urgency Musc Denies arthralgias, Denies joint swelling, Denies numbness and Denies tingling Neuro Denies Abnormal speech present, Denies behavioral changes, Denies vertigo, Denies dizziness, Denies headache(s), Denies loss of vision, Denies memory loss, Denies numbness and Denies tingling Psych Denies anxiety, Denies behavioral changes, Denies depression, Denies memory loss and Denies panic attacks Zay/Lymph Denies easy bleeding and Denies easy bruising Aller/Immun Denies wheezing Physical exam (Primary Care) Vital Signs: Last Vital Signs Pulse 78 05/13/24 10:07 BP 142/90 H 05/13/24 10:07 Pulse Ox 98 05/13/24 10:07 Oxygen Delivery Method Room Air 05/13/24 10:07 BMI result Body Mass Index 20.3 Tobacco/Smoking Status: Tobacco use Status Tobacco use date assessed 05/13/24 05/13/24 10:17 Patient Tobacco Use Status Former Tobacco user 05/13/24 10:08 Tobacco use type Cigarette 05/13/24 10:08 e-Cigarette/Vaping Use Never Used 05/13/24 10:08 PHQ-9: PHQ-9 Score PHQ-9: Total score 1 05/13/24 10:27 Depression Screening Interpretation: Negative Thrive Assessment: Date of Thrive Assessment Date Thrive assessed 05/13/24 05/13/24 10:17 Currently or been in a relationship where the following occur: No concerns reported Const General: healthy appearing, no acute distress, alert and awake Nutritional Appearance: well nourished Orientation/consciousness: oriented to person, oriented to place and oriented to time HENAL Ears: TM's normal bilaterally General nose exam: Normal nasal mucous membranes and turbinates present Eyes Conjunctivae: conjunctivae normal Sclerae: sclerae normal Pupils: Equal, round and reactive pupils present Neck Neck: Yes no lymphadenopathy and Yes no JVD Thyroid: Thyroid normal Carotids: no bruits Resp Effort & Inspection: normal respiratory effort and not tachypneic Auscultation: no crackles, no rales, no rhonchi and no wheezes Cardio Rate: regular rate Rhythm: regular rhythm Heart sounds: no murmurs and normal S1 and S2 GI Palpation (GI): Soft to palpation, nontender, no hepatomegaly and no splenomegaly Auscultation: normal bowel sounds Skin General skin exam: no rashes or lesions noted and dry skin Neuro General: oriented to person, oriented to place and oriented to time Cranial nerves: Yes Equal, round and reactive pupils present Speech: No Abnormal speech present Gait exam (Neuro): Normal gait present Motor exam (neuro): no tremor noted Extrem Right upper extremity: full ROM Left upper extremity: full ROM Right lower extremity: full ROM; no edema Left lower extremity: full ROM; no edema Psych Mental Status: mental status grossly normal Speech and movement: Slowed speech present (Psych) and Slowed movement present (Neuro) Affect: Sad affect present and Blunted affect present Attitude: cooperative Thought process: Normal thought process present Office Procedures Flu Questionnaire Does the patient have a severe egg allergy?: No Does the patient have severe life threatening allergies?: No Does the patient have a fever or illness today?: No Has the patient ever had Guillain-[place] Syndrome?: No Has the patient ever had any past reaction to a flu shot?: No Immunizations Fluarix Triv 4400-5060 (PF) 45 mcg (15 mcg x 3)/0.5 mL IM syringe Performing Provider: Sergo Villasenor PA-C [facility] Administered by: TIMO Hearn on 05/13/24 10:09 Dose Route Admin Location Dispensed Lot Number Expiration Date [facility] Solar Manager 0.5 mL IM Left Deltoid 0.5 mL [id number] 01/25/25 [id number] sho[employer]LINE VIS Given Date VIS Provided VIS Publication Date 05/13/24 Single Vaccine 21 Eligibility Eligibility Date Funding Source Not [facility] Eligible 05/13/24 Private Coding Level of Care Code Est Pt Level 3 (82058) Diagnoses Osteopenia of neck of left femur M85.852 Laterality: left Osteopenia location: femoral neck Bipolar I disorder with depression F31.9 Additional Codes JORDI-7 Assessment Billing - JORDI-7 Assessment Tool: JORDI-7 Assessment 87475 ([id number]) Assessment & Plan Assessment & Plan (1) Osteopenia: Code(s): M85.80 - Other specified disorders of bone density and structure, unspecified site Category: Medical Qualifiers: Laterality: left Osteopenia location: femoral neck Qualified Code(s): M85.852 - Other specified disorders of bone density and structure, left thigh Plan: As per HPI patient's bone density in 2021 showing osteopenia and a moderate elevated FRAX score. She is willing to repeat testing. Did discuss the need to do weight-bearing exercises and perhaps try vitamin D and calcium supplementation. (2) Bipolar I disorder with depression: Code(s): F31.9 - Bipolar disorder, unspecified Category: Medical Plan: As per HPI patient does seem somewhat depressed today in office. She also seems very overwhelmed and has some delayed responses to my questions. She is teary eye today in office. She will be following up with her psychiatrist today to discuss her psychiatric symptoms Orders: Orders Lipid Panel 05/13/24 E78.9 - Disorder of lipoprotein metabolism, unspecified Comprehensive [place]. Panel Fast 05/13/24 N18.30 - Chronic kidney disease, stage 3 unspecified XR DEXA axial skeleton 05/13/24 M85.852 - Other specified disorders of bone density and structure, left thigh, Z78.0 - Asymptomatic menopausal state Complete Blood Count no Diff 05/13/24 E78.9 - Disorder of lipoprotein metabolism, unspecified Influenza [id number] Immunization 05/13/24 Z23 - Encounter for immunization
[2024-05-13 10:07] VITALS: BP 142/90; PULSE 78; O2SAT 98; BMI 20.3
== END 2024-05-13 10:57 | disposition home or self-care (01) ==
PROVIDERS: PCP Physician Assistant; Visit Provider Physician Assistant
DX: M85.852 Other specified disorders of bone density and structure, left thigh (principal); F31.9 Bipolar disorder, unspecified

== ENCOUNTER → 2024-05-13 09:55 | Outpatient (BNVA) | payer MEDICARE, SELFPAY | PROVIDERS: PCP Physician Assistant; Visit Provider Physician Assistant | DX: Z23 Encounter for immunization (principal); M85.852 Other specified disorders of bone density and structure, left thigh; F31.9 Bipolar disorder, unspecified | CPT/HCPCS: 90471; 90656; 96127; 99212 ==

== ENCOUNTER 2024-06-02 13:29 | Outpatient (REF) | payer MEDICARE, SELFPAY ==
--- NOTE | ~2024-06-02 | MM_ITS ---
EXAMINATION: BONE DENSITOMETRY CLINICAL INDICATION: Asymptomatic menopausal state. COMPARISON: Baseline BD dated 08/18/2021. TECHNIQUE: Using a Bazaart DXA System (software version: 13.1) manufactured by [employer], dual-energy x-ray absorptiometry was performed of the lumbar spine and left hip. The images are of good technical quality. Summary results are attached. FINDINGS: AP SPINE L1-L3 (excluding L4): The data of L1-L4 has been changed to exclude the L4 vertebral body, because degenerative sclerosis at this level may cause overestimation of lumbar spine density. Current: BMD 1.065 g/cm2, Z-score 0.6, T-score -0.9, normal, 9.7% increase from baseline (<5% change is not significant). Baseline: BMD 0.971 g/cm2. LEFT FEMUR, NECK: Current: BMD 0.840 g/cm2, Z-score 0.0, T-score -1.4, osteopenia. Baseline: BMD 0.841 g/cm2. LEFT FEMUR, TOTAL: Current: BMD 0.920 g/cm2, Z-score 0.5, T-score -0.7, normal, 2.3% increase from baseline (<5% change is not significant). Baseline: BMD 0.899 g/cm2. IDENTIFIED RISK FACTORS: Parental hip fracture. Secondary osteoporosis (early menopause). Renal disease. HISTORY OF FRACTURE: None listed. MEDICATIONS: Calcium supplement and/or multivitamin. Vitamin D. MM/XR DEXA axial skeleton IMPRESSION: 1. DIAGNOSIS: Osteopenia based on the lowest T-score value of -1.4 in the femoral neck applying World Health Organization criteria. 2. 10-YEAR FRACTURE RISK PREDICTION, FRAX: Major osteoporotic fracture (clinical spine, forearm, hip or shoulder) 14.4%. Hip fracture 1.1%. 3. Treatment Recommendations: NOF guidelines recommend consideration for treatment in postmenopausal women and men age 50 and older presenting with the following: -A hip or vertebral (clinical or morphometric) fracture. -T-score less than or equal to -2.5 at the femoral neck or spine after appropriate evaluation to exclude secondary causes. -Low bone mass at the hip or spine and a 10-year fracture probability by FRAX of greater than or equal to 3% for hip fracture or greater than or equal to 20% for major osteoporotic fracture based on the [place] adapted WHO algorithm. 4. Other Recommendations: All treatment decisions require clinical judgment and consideration of individual patient factors, including patient preferences, comorbidities, previous drug use, risk factors not captured in the FRAX model (e.g. frailty, falls, vitamin D deficiency, increased bone turnover, interval significant decline in bone density) and possible under or overestimation of fracture risk by FRAX. Additional medical evaluation for secondary cause of low bone mineral density may be appropriate. FUTURE SCAN RECOMMENDATION: People with diagnosed cases of osteoporosis or at high risk for fracture should have regular bone mineral density tests. For patients eligible for Medicare, routine testing is allowed once every 2 years. The testing frequency can be increased to one year for patients who have rapidly progressing disease, those who are receiving or discontinuing medical therapy to restore bone mass, or have additional risk factors. Electronically signed by: Yaniv Sellers MD 06/02/2024 02:20 PM LATANYA KERR
== END 2024-06-02 13:30 | disposition home or self-care (01) ==
LOC: HO.MAMMO 13:29
PROVIDERS: PCP Physician Assistant; Visit Provider Physician Assistant
DX: M85.852 Other specified disorders of bone density and structure, left thigh (principal); Z78.0 Asymptomatic menopausal state
CPT/HCPCS: 77080

== ENCOUNTER 2024-07-08 10:42 | Outpatient (AMB) | payer MEDICARE, SELFPAY ==
--- NOTE | 2024-07-08 10:55 | A.OFFVIS_ITS ---
Intake Visit Reasons: 2M cysto Intake Note: Patient is Present for Cystoscopy Urology Med: None Antibiotic Allergy: None Blood Thinner: None Last Culture:05/05/24 Treated with Bactrim URO- G Disposable Cystoscope lot: [id number] exp:11/06/2026 Laborer Hoisting Required: No Accompanied by: Self / Same As Patient Allergies No Known Allergies [No Known Allergies*] Allergy (Verified 07/08/24 11:00) HPI Comments Details: Ragini is a pleasant female. She is a patient of Dr. Villasenor. 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 follow-up Reassurance provided regarding UTI. It will take 6-9 months for risk to be significantly reduced with estrogen. Bladder debris Transvaginal ultrasound - Echogenic debris noted in the urinary bladder Recurrent UTI E coli ampicillin and Cipro resistant 05/21 PFSH Medical History Urinary incontinence Chronic UTI Cervical cancer screening Osteoporosis screening Diabetes mellitus screening Bipolar disorder Surgical History History of endometrial ablation Hx of tubal ligation Hx of endoscopy History of colonoscopy Family History Father Family history of high blood pressure History of macular degeneration Mother Hx of type 2 diabetes mellitus Family history of Alzheimer's disease Social History Household Members: Spouse Housing: House Alcohol intake: never Patient Tobacco Use Status: Former Tobacco user Tobacco use type: Cigarette e-Cigarette/Vaping Use: Never Used Second Hand Smoke Exposure: No service: No Current occupational status: disabled Cognitive needs: No Hearing needs: No Vision needs: No Female Reproductive History Menstrual Age of Menarche: 10 Review of Systems Const Denies chills and Denies fever(s) Card Reports no additional complaints and Denies syncope Resp Denies cough GI Denies abdominal pain and Denies heartburn Reports as per HPI and Denies change in libido Neuro Denies syncope Psych Denies change in libido Endo Denies change in libido Physical Exam Const General: cooperative, healthy appearing, comfortable and no acute distress Orientation/consciousness: patient oriented x3 HEENT Face and sinus: Yes normal facial exam Mouth: moist mucous membranes Neck Neck: Yes normal visual inspection, Yes full ROM and Yes trachea midline Chest Chest palpation & inspection: normal inspection of the chest Resp Effort & Inspection: normal respiratory effort, able to speak in complete sentences and no respiratory distress GI Inspection: Yes normal to inspection Back/Spine/Pelvis Cervical Spine: normal cervical lordosis Thoracic/Lumbar Spine: thoracic and lumbar spine normal to inspection Skin General skin exam: no rashes or lesions noted Neuro General: patient oriented x3, gait normal, tone normal and moves all extremities Extrem General: Yes normal to inspection and Yes capillary refill normal Office Procedures Cystoscopy Consent Discussed risk and benefit or proposed procedure with the patient. Information consent for procedure given to the patient. Discussed technical aspects, risks, benefits and alternatives in full. Addressed all of the patient's questions and concerns regarding the procedure. The patient demonstrated knowledge and understanding. They wish to proceed with this procedure. Preparation The patient was prepped in the usual manner. A fish egg packer was present and in the room. Genitalia was prepped with betadine solution in a sterile manner. Lidocaine Jelly 2% was placed into the urethra and 16Fr flexible Olympus cystoscope was inserted into the meatus after adequate lubrication. Procedure Meatus caruncle Urethra normal Bladder examination with retroflexion of cystoscope Bladder Orifices normal shape and position Trigone metaplasia Bladder Capacity large Trabeculations - Cellule Formation - Diverticulum Formation - Mucosal Erythema --- Bladder Tumor - [id number] DISPOSABLE SCOPE URO-G FLEXIBLE SCOPE Procedure code (CPT) selection complete Office Meds lidocaine HCl 2 % mucosal jelly in applicator Performing Provider: Umair Mojica MD Performing Location: [facility] Administered by: JOAN Parra on 07/08/24 11:50 Dose Route Admin Location Dispensed Lot Number Expiration Date [facility] Grinding And Spraying Supervisor 10 mL intra-urethral 10 mL nitrofurantoin monohydrate/macrocrystals 100 mg capsule Performing Provider: Umair Mojica MD Performing Location: [facility] Administered by: JOAN Parra on 07/08/24 11:50 Dose Route Admin Location Dispensed Lot Number Expiration Date NDC Grinding And Spraying Supervisor 100 mg PO 1 cap naproxen 500 mg tablet Performing Provider: Umair Mojica MD Performing [facility] Administered by: JONA Parra on 07/08/24 11:50 Dose Route Admin Location Dispensed Lot Number Expiration Date NDC Grinding And Spraying Supervisor 500 mg PO 1 tab Results AMB Urinalysis, Automated UA Leukoctes 70 Venecia/uL Last Edit by JOAN Parra on 07/08/24 11:52 UA Nitrite Negative Last Edit by JOAN Parra on 07/08/24 11:52 UA Urobilinogen 0.2 mg/dL Last Edit by JOAN Parra on 07/08/24 11:5 2 UA Protein 0 mg/dL Last Edit by JOAN Parra on 07/08/24 11:52 UA pH 6.5 Last Edit by JOAN Parra on 07/08/24 11:52 UA Blood 0 Dylan/uL Last Edit by JOAN Parra on 07/08/24 11:52 UA Specific [place] 1.010 Last Edit by JOAN Parra on 07/08/24 11: 52 UA Ketone Negative Last Edit by JOAN Parra on 07/08/24 11:52 UA Bilirubin 0 mg/dL Last Edit by JOAN Parra on 07/08/24 11:52 UA Glucose 0 mg/dL Last Edit by JOAN Parra on 07/08/24 11:52 Results Reviewed Results Reviewed: Laboratory Last Values Urine pH (Auto) 6.5 07/08/24 11:51 Specific [place] (Auto) 1.010 07/08/24 11:51 Urine Protein (Auto) 0 mg/dL 07/08/24 11:51 Glucose (UA)(Auto) 0 mg/dL 07/08/24 11:51 Urine Ketones (Auto) Negative 07/08/24 11:51 Urine Blood (Auto) 0 Dylan/uL 07/08/24 11:51 Urine Nitrite (Auto) Negative 07/08/24 11:51 Urine Bilirubin (Auto) 0 mg/dL 07/08/24 11:51 Urine Urobilinogen (Auto) 0.2 mg/dL 07/08/24 11:51 Leukocyte Esterase (Auto) 70 Venecia/uL 07/08/24 11:51 Assessment & Plan Assessment & Plan (1) Chronic UTI: Code(s): N39.0 - Urinary tract infection, site not specified Category: Medical Plan Continue Premarin Orders: Orders AMB Urinalysis Automated 07/08/24 Z13.9 - Encounter for screening, unspecified AMB Cystoscopy 07/08/24 N39.0 - Urinary tract infection, site not specified Patient Instructions: Imaging studies, laboratory and physical exam results were discussed and reviewed in detail. No major barriers to patient understanding were identified. An opportunity to ask questions regarding the treatment plan was provided. All questions were answered. The patient expressed understanding and agreement with the above treatment plan. The patient is aware they should contact our office by phone for worsening of their current condition or the appearance of new urologic symptoms. Compliance is encouraged with any medications and followup testing that is ordered. It is a privilege to participate in the urologic care of your patient. If you have any questions or concerns regarding treatment for the above conditions, or other urologic issues, please do not hesitate to contact me. The office telephone contact is [phone]. This note is constructed using voice recognition software. While every effort has been made to ensure accuracy catering administrative assistant errors may have been included. Yours sincerely, Dr Umair Mojica MD, [facility] - Urology Providers of Expert, Compassionate Care for the Genitourinary System Coding Level of Care Code Est Pt Level 3 (35714) Diagnoses Chronic UTI N39.0 CPT Codes Cystoscopy - CPT: 16152-[id number] ([id number])
--- OUTSIDE RECORDS SUMMARY | 2024-07-09 01:02 | XMS_ITS | Continuity of Care Document ---
Author Organization [facility] Camryn Rodriguez n's [facility] Address [address] [place] [address], [address] [place] [address]- Care Team Providers Care Resource Technician Name Role Phone Sergo Atkinson Primary Care Physician Encounter [facility] Date(s): 05/08/24 - 06/07/24 [facility] [address] [place], [place] [address] Allergies, Adverse Reactions, Alerts No Known Allergies Medications FLUoxetine 20 mg oral capsule 20 mg, 1, capsule, By Mouth, Daily, Refills 0, Maintenance, 11/07/23 15:30:00 EDT, Partial fill upon patient request if the prescription is for a schedule II opioid drug. Start Date: 11/07/23 Status: Ordered Premarin Vaginal 0.625 mg/gm cream with applicator = 1 Gm, Vaginally, Daily before dinner, Insert a fingertip amount into the vagina (using an applicator or your finger) nightly, # 30 Gm, 2 Refills, Maintenance, 05/13/24 10:29:00 EDT, [id number], Partial fill upon patient request if t... Start Date: 05/13/24 Status: Ordered RisperDAL 4 mg oral tablet 1 tablet = 4 mg, By Mouth, 2 times a day, 0 Refills, Maintenance, 11/07/23 15:30:00 EDT, Partial fill upon patient request if the prescription is for a schedule II opioid drug. Start Date: 11/07/23 Status: Ordered Problem List Condition Confirmation Course Effective Dates Status H ealth Status Informant Anxiety Confirmed Active Bipolar disorder Confirmed Active Chronic urinary tract infections (UTIs) Confirmed Active Former smoker, quit July 1997, used to smoke 1 pack per day Confirmed Active Fibroids Confirmed Active Menopausal state Confirmed Active Postmenopausal bleeding Confirmed Active History of endometrial ablation Confirmed Active Last Pap smear 01/06/24 negative with negative HPV. Endometrial cells present however hysteroscopy D&C done that same day was benign 1 Confirmed Active Urinary incontinence Confirmed Active 13/05/24 Pap was done in the OR at [facility] however the result was issued as a paper [facility] report and did not get entered into [facility] normally. Social History Social History Type Response Smoking Status Former smoker, quit more than 30 days ago; Other: Quit July 1997. Used to smoke 1 pack per day; entered on: 12/26/23 Sex Patient Care team information Care Team Personnel Name: Sergo Atkinson Position: Reference Physician Member Role: PCP Address: Address: [address] [place] [address]- Care Team Related Persons Name: RAMIREZ LAZARO Address: home [address] [place] [id number]
== END 2024-07-08 12:35 | disposition home or self-care (01) ==
PROVIDERS: PCP Physician Assistant; Visit Provider Urology
DX: Z13.9 Encounter for screening, unspecified (principal); N39.0 Urinary tract infection, site not specified

== ENCOUNTER → 2024-07-08 10:42 | Outpatient (BNVA) | payer MEDICARE, SELFPAY | PROVIDERS: PCP Physician Assistant; Visit Provider Urology | DX: N39.0 Urinary tract infection, site not specified (principal) | CPT/HCPCS: 52000; 81003; 99212 ==

== ENCOUNTER 2024-08-10 11:36 | Outpatient (AMB) | payer MEDICARE, SELFPAY ==
--- NOTE | 2024-08-10 11:58 | A.OFFPC_ITS ---
Vital Signs 08/10/24 12:04 Height 6 ft 1 in Weight 163 lb 8 oz BMI 21.6 BP 144/82 H Blood Pressure Location Lt brachial Position Sitting Pulse 78 Pulse Source Pulse Oximeter Pulse Oximetry (%) 98 Oxygen Delivery Method Room Air Intake Visit Reasons: Annual Physical Intake Note: Patient is here today for a physical. Early Childhood Director Required: No Accompanied by: Self / Same As Patient Allergies No Known Allergies [No Known Allergies*] Allergy (Verified 08/10/24 12:14) Medication List - Last Reconciled 08/10/24 by Sergo Villasenor PA-C conjugated estrogens (Premarin) vaginal DAILY fluoxetine 80 mg PO DAILY lamotrigine 300 mg PO BEDTIME lorazepam 0.5 mg PO TID PRN risperidone 4 mg PO BEDTIME Tobacco use date assessed: 08/10/24 Fall risk assessment: No Falls in past year Last assessed Fall Risk: 08/10/24 Dental Screening Dental Screen Date: 08/10/24 Did you have a dental visit in the last 12 months?: Yes Did you have a dental problem in the last 6 months where you did not have access to dental care?: No Was dental information given to patient?: Patient has dentist HPI Annual Physical HPI Details patient is a 64-year-old female here today for routine annual physical ?. Luis A bright has a past medical history significant for generalized anxiety disorder, impaired glucose metabolism, borderline high cholesterol, fibromyalgia, PTSD, chronic constipation Chronic constipation:? Continues to suffer with chronic constipation.? Patient also does have muscular pelvic floor dysfunction to which she has done physical therapy for ? Is followed by gastroenterology , has trialed Motegrity though feels it was not so effective .. 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 followed by a scratch finisher.? Most recent creatinine 1.53 . Major depressive disorder:? Patient followed by a therapist and a psychiatrist who manages her mental health meds. She feels stable from a mental health point of view Mammogram: Done in July 2022 BI-RADS 2- needs repeat continuity tester: Does see a JUDICIAL ADMINISTRATIVE ASSISTANT at [facility]- she will be reaching out to her [facility] ux lead for screening mammogram Colon cancer screening- UTD With Colonoscopy - done in 2019 Vaccines: Up-to-date with tetanus vaccine, pneumonia vaccine, COVID and flu vaccines [facility] Medical History (Updated 08/11/24 @ 07:30 by Sergo Villasenor PA-C) Urinary incontinence Cervical cancer screening Osteoporosis screening Diabetes mellitus screening Bipolar disorder Surgical History History of endometrial ablation Hx of tubal ligation Hx of endoscopy History of colonoscopy Family History Father Family history of high blood pressure History of macular degeneration Mother Hx of type 2 diabetes mellitus Family history of Alzheimer's disease Social History Household Members: Spouse Housing: House Alcohol intake: never Patient Tobacco Use Status: Former Tobacco user Tobacco use type: Cigarette e-Cigarette/Vaping Use: Never Used Second Hand Smoke Exposure: No service: No Current occupational status: disabled Cognitive needs: No Hearing needs: No Vision needs: No Female Reproductive History Menstrual Age of Menarche: 10 Questionnaire PHQ-9 Over the last 2 weeks, how often have you been bothered by any of the following problems? 1. Little interest or pleasure in doing things: not at all 2. Feeling down, depressed, or hopeless: not at all 3. Trouble falling or staying asleep, or sleeping too much: not at all 4. Feeling tired or having little energy: not at all 5. Poor appetite or overeating: not at all 6. Feeling bad about yourself - or that you are a failure or have let yourself or your family down: not at all 7. Trouble concentrating on things, such as reading the newspaper or watching television: not at all 8. Moving or speaking so slowly that other people could have noticed. Or the opposite - being so fidgety or restless that you have been moving around a lot more than usual: not at all 9. Thoughts that you would be better off or of hurting yourself in some way: not at all Total score: 0 Depression Screening Interpretation: Negative Depression Screening Done: Yes 13265 - PHQ-9 Billing: Yes Source: Developed by Drs. Conner Bledsoe, Hoa Batista, Zoltan Hopper and colleagues, with an educational braeden from [employer]. Thrive Questionnaire Date Thrive assessed: 08/10/24 I am a: Patient What is your living situation today?: I have a steady place to live Within the past 12 months, did the food you bought not last and you didn't have the money to get more?: Never true Within the past 12 months, did you worry whether your food would run out before you got money to buy more?: Never true Do you have trouble paying for medicines?: No Do you have trouble getting transportation to medical appointments?: No Do you have trouble paying your heating and electricity bill?: No Do you have trouble taking care of your child, family member or friend?: No Do you have trouble with day-to-day activities such as bathing, preparing meals, shopping, managing finances, etc.?: No Are you currently unemployed and looking for a job?: No Are you interested in more education?: No Please select the resources that you would like help with: None Currently or been in a relationship where the following occur: No concerns reported THRIVE Score: 0 AUDIT C Alcohol Use Questionnaire (AUDIT-C) 1. How often do you have a drink containing alcohol?: Never 3. How often do you have six or more drinks on one occasion?: Never Total Score: 0 JORDI-7 AMB Questionnaire JORDI-7 Date JORDI - 7 assessed: 08/10/24 Feeling nervous, anxious, or on edge: 3 = Nearly every day Not being able to stop or control worryin = Nearly every day Worrying too much about different things: 3 = Nearly every day Trouble relaxin = Not at all Being so restless that it is hard to sit still: 0 = Not at all Becoming easily annoyed or irritable: 0 = Not at all Feeling afraid as if something awful might happen: 1 = Several days Total JORDI-7 score (0-4 normal; 5-9 mild; 10-14 moderate; 15-21 severe): 10 Source: Developed by Drs. Conner Bledsoe, Hoa Batista, Zoltan Hopper and colleagues, with an educational braeden from [employer]. JORDI-7 Assessment Billing JORDI-7 Assessment Tool: JORDI-7 Assessment 52260 Review of Systems Const Denies body aches, Denies chills, Denies excessive sweating, Denies fatigue, Denies fever(s) and Denies headache(s) Eyes Denies blurry vision ENT Denies dysphagia, Denies vertigo, Denies dizziness, Denies headache(s), Denies hearing loss and Denies tinnitus Card Denies chest pain, Denies chest pain with activity, Denies syncope, Denies irregular heart rhythm and Denies dyspnea Resp Denies chest congestion, Denies cough, Denies hemoptysis, Denies dyspnea and Denies wheezing GI Denies abdominal pain, Denies melena, Denies hematochezia, Denies coffee ground emesis, Denies dysphagia, Denies diarrhea, Denies nausea and Denies vomiting Denies urinary frequency, Denies dysuria, Denies urinary hesitancy and Denies urinary urgency Musc Denies arthralgias, Denies limited range of motion, Denies muscle cramps and Denies muscle weakness Skin/Breast Denies rash and Denies skin ulcer Neuro Denies Abnormal speech present, Denies confusion, Denies vertigo, Denies dizziness, Denies syncope, Denies headache(s), Denies memory loss and Denies seizure-like activity Psych Denies anxiety, Denies confusion, Denies depression, Denies memory loss, Denies panic attacks and Denies paranoia Endo Denies excessive sweating, Denies fatigue, Denies flushing, Denies polydipsia and Denies polyuria Aller/Immun Denies wheezing Physical exam (Primary Care) Vital Signs: Last Vital Signs Pulse 78 08/10/24 12:04 BP 144/82 H 08/10/24 12:04 Pulse Ox 98 08/10/24 12:04 Oxygen Delivery Method Room Air 08/10/24 12:04 BMI result Body Mass Index 21.6 Tobacco/Smoking Status: Tobacco use Status Tobacco use date assessed 08/10/24 08/10/24 12:02 Patient Tobacco Use Status Former Tobacco user 08/10/24 12:02 Tobacco use type Cigarette 08/10/24 12:02 e-Cigarette/Vaping Use Never Used 08/10/24 12:02 PHQ-9: PHQ-9 Score PHQ-9: Total score 0 08/10/24 12:15 Depression Screening Interpretation: Negative Thrive Assessment: Date of Thrive Assessment Date Thrive assessed 08/10/24 08/10/24 12:02 Currently or been in a relationship where the following occur: No concerns reported Const General: cooperative, comfortable, no acute distress, alert and awake; No confusion Orientation/consciousness: oriented to person, oriented to place, patient oriented x3 and No confusion HENMT Head: Yes normocephalic Ears: external ears normal and TM's normal bilaterally Face and sinus: No sinus tenderness Mouth: Normal oral and palatal mucosa present and tongue normal Teeth and gingiva: dentition normal and gingiva normal Throat: Yes posterior oropharynx normal, Yes tonsils normal and Yes uvula midline Eyes Conjunctivae: conjunctivae normal Sclerae: sclerae normal Pupils: Equal, round and reactive pupils present EOM: EOMs intact bilaterally Direct Ophthalmoscopy: No no photophobia Neck Neck: Yes no lymphadenopathy, No tender and Yes no JVD Thyroid: Thyroid normal Carotids: no bruits Chest Chest palpation & inspection: no tenderness Resp Effort & Inspection: normal respiratory effort, no audible wheezes, not labored and no stridor Auscultation: no crackles, no rales, no rhonchi and no wheezes Cardio Jugular venous distension: no JVD Rate: regular rate, not bradycardic and not tachycardic Rhythm: regular rhythm Bruits: no carotid bruits Peripheral pulses: Peripheral pulses 2+ throughout GI Inspection: Yes normal to inspection, No abdominal wall ecchymosis and No visible herniation Palpation (GI): Soft to palpation, nontender, no guarding, not rigid and No hepatosplenomegaly present Auscultation: normoactive bowel sounds General: Yes no CVA tenderness Back/Spine/Pelvis Back: no CVA tenderness and No back tenderness Cervical Spine: cervical ROM normal Thoracic/Lumbar Spine: thoracic and lumbar spine normal to inspection, straight leg raise negative bilaterally, No thoraco-lumbar ROM limited and No lumbar spinal tenderness Skin Lesions: no lesions Rashes: no rashes Wounds: no wounds Neuro General: oriented to person, oriented to place, patient oriented x3, CN's II-XI intact bilaterally and No confusion Cranial nerves: Yes Equal, round and reactive pupils present and Yes Normal accommodation reflex present Cognition (Neuro): normal cognition Speech: No Abnormal speech present Gait exam (Neuro): Normal gait present Motor exam (neuro): 5/5 motor strength present throughout Extrem Right upper extremity: full ROM; no cyanosis Left upper extremity: full ROM; no cyanosis Right lower extremity: no edema Left lower extremity: no edema Psych Appearance: grossly normal Mental Status: mental status grossly normal Affect: normal affect Attitude: cooperative Thought process: Normal thought process present Coding Level of Care Code Est Pt Prev Care >65y(84199) Diagnoses Annual physical exam Z00.00 Bipolar I disorder with depression F31.9 Stage 3 chronic kidney disease, unspecified whether stage 3a or 3b CKD N18.30 Chronic kidney disease stage: stage 3 (moderate) Chronic kidney disease stage 3 subtype: unspecified whether 3a or 3b Mild depression F32.0 Alcohol dependence in remission F10.21 JORDI (generalized anxiety disorder) F41.1 Additional Codes JORDI-7 Assessment Billing - JORDI-7 Assessment Tool: JORDI-7 Assessment 40644 ([id number]) PHQ-9 - 92677 - PHQ-9 Billing: Yes ([id number]) Assessment & Plan Assessment & Plan (1) Annual physical exam: Code(s): Z00.00 - Encounter for general adult medical examination without abnormal findings Category: Medical Plan: As per HPI (2) Bipolar I disorder with depression: Code(s): F31.9 - Bipolar disorder, unspecified Category: Medical Plan: Continues to follow a mental health therapist and feels she is stable on her current medications. (3) CKD (chronic kidney disease): Code(s): N18.9 - Chronic kidney disease, unspecified Category: Medical Qualifiers: Chronic kidney disease stage: stage 3 (moderate) Chronic kidney disease stage 3 subtype: unspecified whether 3a or 3b Qualified Code(s): N18.30 - Chronic kidney disease, stage 3 unspecified Plan: Continues to have slightly impaired renal function. Will continue to follow. Advised to stay away from any nephrotoxins and stay well hydrated. (4) Mild depression: Code(s): F32.0 - Major depressive disorder, single episode, mild Category: Medical Plan: Patient's PHQ-9 score 0, she feels she is stable from a mental health point of view particularly her depression. (5) Alcohol dependence in remission: Code(s): F10.21 - Alcohol dependence, in remission Category: Medical Plan: Has been in remission (6) JORDI (generalized anxiety disorder): Code(s): F41.1 - Generalized anxiety disorder Category: Medical Plan: Patient's JORDI-7 score positive for anxiety which has been existing condition for her. She speaks with a mental health therapist and a psychiatrist who manages her mental health medications. She feels stable at this point
[2024-08-10 12:04] VITALS: BP 144/82; PULSE 78; O2SAT 98; BMI 21.6
== END 2024-08-10 12:31 | disposition home or self-care (01) ==
PROVIDERS: PCP Physician Assistant; Visit Provider Physician Assistant
DX: Z00.00 Encounter for general adult medical examination without abnormal findings (principal); F31.9 Bipolar disorder, unspecified; N18.30 Chronic kidney disease, stage 3 unspecified; F10.21 Alcohol dependence, in remission; F41.1 Generalized anxiety disorder

== ENCOUNTER → 2024-08-10 11:36 | Outpatient (BNVA) | payer MEDICARE, SELFPAY | PROVIDERS: PCP Physician Assistant; Visit Provider Physician Assistant | DX: Z00.00 Encounter for general adult medical examination without abnormal findings (principal); F41.1 Generalized anxiety disorder; F43.10 Post-traumatic stress disorder, unspecified; F31.9 Bipolar disorder, unspecified; F10.21 Alcohol dependence, in remission; R73.01 Impaired fasting glucose; M79.7 Fibromyalgia; K59.09 Other constipation; N18.30 Chronic kidney disease, stage 3 unspecified | CPT/HCPCS: 96127; 99397 ==

== ENCOUNTER 2024-08-27 15:00 | Outpatient (RCR) | payer MEDICARE, SELFPAY ==
--- NOTE | 2024-08-06 10:24 | MHC.PT.EP ---
[facility] [place] Office [place] Office [place] Office [address] Nazanin Ledesma [address] [phone] F: [phone] F: [phone] F: [phone] F: [phone] Physical Therapy Plan of Care Date of Evaluation: 08/06/24 Date of Surgery: NA Diagnosis: Unspecified urinary incontinence Assessment: Ragini is a 64 year female who is referred to PT for unspecified urinary incontinence . She reports of having h/o UI and constipation and has had pelvic PT in the past for the same. She made significant improvements with PT however about 1 years back she stopped doing her pelvic floor HEP and her symptoms returned. She currently reports of having urinary urgency and UI and occasionally not realizing when she has UI. She also reports of using the bathroom to urinate every 2 hours when outside without waiting for the urge due to fear of soiling her clothes. In addition she also reports of having severe constipation and associated FI. She denies having any pain. She would benefit from skilled PT to address the aforementioned impairments and improve tolerance to functional activities. Frequency and Duration: The patient will be seen 1/week for 6 weeks Short Term Goals: 1. Transvaginal and ano-rectal exam will be done in 2 weeks 2. Pt will be able to state atleast 3 urge suppression techniques in 3 weeks Reimbursement Counselor Goals: 1. Pt will be able to have atleast 3 BM without straining in 4 weeks 2. Pt will deny having UI in 5 weeks 3. Pt will be independent with HEP for symptom management and maintenance following d/c in 6 weeks Treatment Plan: Modalities to reduce pain, spasms and effusion. Manual therapy to restore motion and function. Therapeutic exercise to improve strength and flexibility. Neuromuscular re-education for posture and balance. Therapeutic activities to return to functional activities of daily living. Electronically signed by: Please sign and return to therapist. Thank you for your referral.
--- NOTE | 2024-09-08 09:18 | MHC.PT.DC ---
[facility] [place] Office [place] Office [place] Office [address] Ledesma [address] [phone] F: [phone] F: [phone] F: [phone] F: [phone] Physical Therapy Discharge Report Diagnosis: Unspecified urinary incontinence Date of Surgery: NA Date of Evaluation: 08/06/24 Date of Discharge: 09/08/24 Treatments to Date: 3 Cancellations to Date: 0 No Shows to Date: 0 Discharge Status: Achieved Goals Improved Function Independent with HEP Discharge Summary: Ragini attended 3 PT visits and made significant improvements. She has achieved all goals set for her and is independent with all HEP. She also has the tools to manage her symptoms in case of exacerbations. She is therefore being d/c from PT. Electronically signed by: Veronica St, PT DPT Please sign and return to therapist. Thank you for your referral.
== END 2024-09-08 09:18 | disposition home or self-care (01) ==
LOC: HO.PT 15:00
PROVIDERS: PCP Physician Assistant; Visit Provider Physician Assistant
DX: R32 Unspecified urinary incontinence (principal)
CPT/HCPCS: 97112; 97140; 97161

== ENCOUNTER 2024-10-02 11:41 | Outpatient (AMB) | payer MEDICARE, SELFPAY ==
--- NOTE | 2024-10-02 12:43 | MHC.OFFWIV ---
Intake Vital Signs 10/02/24 12:45 Height 6 ft 1 in Weight 163 lb BMI 21.5 BP 142/90 H Blood Pressure Location Lt brachial Position Sitting Pulse 72 Pulse Source Pulse Oximeter Temp 98.2 F Temp Source Oral Pulse Oximetry (%) 100 Oxygen Delivery Method Room Air Intake Visit Reasons: EP-lt side headaches and face numbness Intake Note: pt is here for left side headache Patient Tobacco Use Status: Former Tobacco user Allergies No Known Allergies [No Known Allergies*] Allergy (Verified 10/02/24 12:46) Do you need a note to return to daycare/school/sports/work: No HPI EP-lt side headaches and face numbness HPI Details This is a 64-year-old female patient who presents to the walk-in clinic today with a left-sided headache and facial numbness / tingling. She states that she developed these symptoms yesterday around 17:00. She states she has never gotten headaches, aside from a mild headache about 1 week ago preceding this. This was not associated with any facial symptoms. She reports tingling / burning sensation on the left side of her face, including her lips, teeth, cheek, and upper face on that left side. She reports it feels like she has had Novocain injected. She denies any vision changes. She denies any mouth pain or recent dental work. She denies any changes in medications. She states her hearing is intact. No tenderness of face/temporal area. She took Tylenol this morning however is unsure if this was helpful [facility] Medical History Urinary incontinence Cervical cancer screening Osteoporosis screening Diabetes mellitus screening Bipolar disorder Surgical History History of endometrial ablation Hx of tubal ligation Hx of endoscopy History of colonoscopy Family History Father Family history of high blood pressure History of macular degeneration Mother Hx of type 2 diabetes mellitus Family history of Alzheimer's disease Social History Household Members: Spouse Housing: House Alcohol intake: never Patient Tobacco Use Status: Former Tobacco user Tobacco use type: Cigarette e-Cigarette/Vaping Use: Never Used Second Hand Smoke Exposure: No service: No Current occupational status: disabled Cognitive needs: No Hearing needs: No Vision needs: No Female Reproductive History Menstrual Age of Menarche: 10 Review of Systems Const All systems reviewed & are unremarkable except as noted in HPI and below Physical Exam Const General: cooperative, healthy appearing and no acute distress Nutritional Appearance: average body habitus Orientation/consciousness: patient oriented x3 Limitations: no limitations HEENT Other: no tenderness to palp. Head: Yes normal to inspection, Yes normocephalic and Yes atraumatic Ears: hearing grossly normal bilaterally, external ears normal and TM's normal bilaterally General nose exam: Normal external nose present Face and sinus: Yes normal facial exam and Yes sinuses nontender Mouth: Normal oral and palatal mucosa present Throat: Yes posterior oropharynx normal Eyes Eyelids: Yes eyelids normal Conjunctivae: conjunctivae normal Pupils: Equal, round and reactive pupils present, Pupils normal by confrontation and Pupil accommodation reflex normal EOM: EOMs intact bilaterally Direct Ophthalmoscopy: normal light reflex and no photophobia Neck Neck: Yes no lymphadenopathy Resp Effort & Inspection: normal respiratory effort Auscultation: clear to auscultation bilaterally Cardio Rate: regular rate Rhythm: regular rhythm Skin General skin exam: no rashes or lesions noted Neuro General: patient oriented x3, gait normal, tone normal, moves all extremities and no focal motor deficits Cranial nerves: Yes Equal, round and reactive pupils present, Yes Normal accommodation reflex present, Yes Bilaterally intact EOM present, Yes Normal facial strength present, Yes Midline tongue present, Yes Ability to bilaterally elevate shoulders present and Yes Individual cranial nerve findings present VII: normal Cognition (Neuro): normal cognition Motor exam (neuro): 5/5 motor strength present throughout Extrem General: Yes no clubbing, cyanosis or edema Psych Appearance: grossly normal Mental Status: mental status grossly normal Speech and movement: Normal speech and movement present Affect: normal affect Assessment & Plan Assessment & Plan (1) Left temporal headache: Code(s): R51.9 - Headache, unspecified Plan: Patient has had headache and left-sided facial tingling / numbness since yesterday evening. On exam, she has no neuro deficits. Subjective report of numbness/tingling. Neuro exam as noted above. There is no jaw pain or facial tenderness to suggest temporal arteritis. No rash to suggest zoster. Possible migraine. Will start on a steroid taper and advised patient to f/u with PCP Marshal Villasenor. We reviewed indications, use, possible side effects of medication. she can also continue to take Tylenol p.r.n. however, we had a thorough discussion that if symptoms worsen /any increase in weakness occur, or if she notices any sort of facial drooping, vision changes, or tenderness to touch, she should go to the emergency department promptly for evaluation. All questions were answered and patient verbalizes understanding and agrees to plan. (2) Numbness and tingling of left side of face: Code(s): R20.0 - Anesthesia of skin; R20.2 - Paresthesia of skin Plan: As above Medications: New methylprednisolone PO PER PKG DIR for 6 days 21 ea 0RF Coding Level of Care Code Est Pt Level 4 (25849) Diagnoses Left temporal headache R51.9 Numbness and tingling of left side of face R20.0; R20.2
[2024-10-02 12:45] VITALS: BP 142/90; PULSE 72; TEMP 36.8; O2SAT 100; BMI 21.5
--- OUTSIDE RECORDS SUMMARY | 2024-10-02 13:38 | XMS_ITS | Clinical Summary ---
Author Organization [facility] Address [id number] [place] [id number] Care Team Providers Care Manufacturing Inspector Name Role Phone Sergo Villasenor Primary Care Provider Social History Tobacco Use Types Packs/Day Years Used Date Smoking Tobacco: Former Comments Unknown Sex and Gender Information Value Date Recorded Sex Assigned at Not on file Legal Sex Female 6:24 PM EST Gender Identity Not on file Sexual Orientation Not on file Obstetrics History Plan of Treatment Health Maintenance Due Date Last Done Comments Breast Cancer Screening 1958 DTaP,Tdap,and Td Vaccines (1 - Tdap) 1977 Pneumococcal Vaccine: 50+ Ye ars (1 of 1 - PCV) 2008 Zoster Vaccines (1 of 2) 2008 COVID-19 Vaccine ( - 2023-2 5 season) 2024 Influenza Vaccine (#1) 2024 RSV Immunization Patients 60 + Years Old (1 - 1-dose 75+ series) 2033 HIB Vaccines Aged Out No longer eligi ble based on patient's age to complete this topic HPV Vaccines Aged Out No longer eligi ble based on patient's age to complete this topic Hepatitis A Vaccines Aged Out No long er eligible based on patient's age to complete this topic Hepatitis B Vaccines Aged Out No long er eligible based on patient's age to complete this topic IPV Vaccines Aged Out No longer eligi ble based on patient's age to complete this topic MMR Vaccines Aged Out No longer eligi ble based on patient's age to complete this topic Meningococcal ACWY Vaccine Aged Out N o longer eligible based on patient's age to complete this topic Meningococcal B Vacine Aged Out No lo nger eligible based on patient's age to complete this topic RSV Immunization Patients Un teddy 20 months Aged Out No longer eligible b ased on patient's age to complete this topic Varicella Vaccines Aged Out No longer eligible based on patient's age to complete this topic Care Teams Manufacturing Inspector Relationship Specialty Start Date End Date Sergo Villasenor PA PCP - General Internal Medicine 02/02/19
--- OUTSIDE RECORDS SUMMARY | 2024-10-02 13:38 | XMS_ITS | Clinical Summary ---
Author Organization [facility] Address [address] [facility] [address] [place] [address] Phone Care Team Providers Care Category Development Analyst Name Role Phone Sergo Villasenor Primary Care Provider [phone] Allergies No known active allergies Medications amitriptyline (ELAVIL) 100 MG tablet Take 2 tablets by mouth 1 (one) time each day Active cholecalciferol (VITAMIN D-3) 25 MCG (1000 UT) capsule Comments: Patient Notes: TAKE 1 CAPSULE BY MOUTH ONCE A DAY Duration: 90 Active FLUoxetine (PROzac) 20 MG capsule Take 2 capsules by mouth every morning Active lamoTRIgine (LaMICtal) 150 MG tablet Take 2 tablets by mouth every night Active LORazepam (ATIVAN) 0.5 MG tablet Take 2 tablets by mouth 1 (one) time each day Active Multiple Vitamin (multivitamin) tablet Take 1 tablet by mouth 1 (one) time each day Active Ascorbic Acid (VITAMIN C ER PO) Take by mouth Active risperiDONE (RisperDAL) 4 MG tablet Take 4 mg by mouth at bed time 02/12/2022 Active moxifloxacin (VIGAMOX) 0.5 % ophthalmic solution 09/13/2023 Active Active Problems Problem Noted Date Diagnosed Date Chronic kidney disease stage 3 05/29/2021 Proteinuria 05/29/2021 Long-term current use of lithium 11/28/2020 Cyst of kidney 11/28/2020 Family History Medical History Relation Comments Gout Father Hypertension Father Dementia Mother Diabetes Mother Stroke Sibling 1 brother Diabetes Sibling 2 brother Relation Status Comments Father Mother Sibling 1 Sibling 2 Social History Tobacco Use Types Packs/Day Years Used Date Smoking Tobacco: Former Cigarettes Q uit: 07/29/1986 Smokeless Tobacco: Never Tobacco Cessation:Counseling Given: No Alcohol Use Standard Drinks/Week Comments No 0 (1 standard drink = 0.6 oz pur e alcohol) Comments Unknown Sex and Gender Information Value Date Recorded Sex Assigned at Not on file Legal Sex Female 4:59 PM EST Gender Identity Not on file Sexual Orientation Not on file Last Filed Vital Signs Vital Sign Reading Time Taken Comments Blood Pressure 126/60 10/21/2023 1:52 PM EDT Pulse 104 10/21/2023 1:52 PM EDT Temperature - - Respiratory Rate - - Oxygen Saturation 97% 10/21/2023 1:52 PM EDT Inhaled Oxygen Concentration - - Weight 71.7 kg (158 lb) 10/21/2023 1:52 PM EDT Height 185.4 cm (6' 1 ) 06/06/2020 12:01 PM EST Body Mass Index 20.85 06/06/2020 12:01 PM EST Plan of Treatment Upcoming Encounters Date Type Department Care Team (Late st Contact Info) Description 10/20/2024 Orders Only [facility] [address] [facility] [address] [place] [id number] Anton Arce MD [address] [facility] [address] [place] [phone] Stage 3 chronic kidney disease, not otherwise specified (HCC) 10/30/2024 11:15 AM EDT Office Visit [facility] [address] [facility] [address] [place] [phone] Anton Arce MD [address] [facility] [address] [place] [address] Health Maintenance Due Date Last Done Comments Breast Cancer Screening 1960 Pneumococcal Vaccine: 65+ Ye ars (1 of 2 - PCV) 1964 Colorectal Cancer Screening: Annual FOBT 2007 Colorectal Cancer Screening: Colonoscopy 2007 Colorectal Cancer Screening: Sigmoidoscopy 2007 Influenza Vaccine (#1) 2024 Hepatitis B Vaccine Aged Out No longe r eligible based on patient's age to complete this topic Insurance MEDICARE [facility] MEDICARE [facility] Member Subscriber Plan / Payer (Ef fective 2023-) Name:Ragini Maravilla Relation to Subscriber:Self Name:Ragini Maarvilla Payer ID:[id number] (NAIC) Group ID:Not on file Type:Not on file Address: [id number] Care Teams Category Development Analyst Relationship Specialty Start Date End Date Sergo Villasenor PA [address], [address] [place], [place] [id number] PCP - General Physician Mobile Health Vehicle Operator 05/29/21
== END 2024-10-02 13:35 | disposition home or self-care (01) ==
PROVIDERS: PCP Physician Assistant; Visit Provider Nurse Practitioner Family
DX: R51.9 Headache, unspecified (principal); R20.0 Anesthesia of skin; R20.2 Paresthesia of skin

== ENCOUNTER → 2024-10-02 11:41 | Outpatient (BNVA) | payer MEDICARE, SELFPAY | PROVIDERS: PCP Physician Assistant | DX: R51.9 Headache, unspecified (principal); R20.0 Anesthesia of skin; R20.2 Paresthesia of skin | CPT/HCPCS: 99212 ==

== ENCOUNTER 2024-10-04 11:19 | Emergency (ER) | payer MEDICARE, SELFPAY ==
--- NOTE | ~2024-10-04 | CT_ITS ---
CLINICAL HISTORY: left sided headache with facial numbness CT head without contrast Comparison: None Findings: No intra-axial mass, midline shift, hydrocephalus, or acute hemorrhage. No significant atrophy-like change or white matter disease. There is no sinus or mastoid fluid. The orbits are within normal limits. There is no acute fracture. IMPRESSION: 1. No acute intracranial findings. This document has been electronically signed by: Marko Patten MD on 10/04/2024 12:46:50
[2024-10-04 11:21] VITALS: BP 144/76; PULSE 63; RESP 18; TEMP 36.1; O2SAT 100; BMI 20.8
--- NOTE | 2024-10-04 11:29 | ED_ITS ---
HPI - General Adult General Chief complaint: General Medical Stated complaint: face numbness Time Seen by Provider: 10/04/24 12:09 Source: patient and family () Mode of arrival: ambulatory Limitations: no limitations History of Present Illness ED Provider: LEONOR TREADWELL PA-C HPI narrative: 64 year old female with pmhx significant for JORDI, impaired glucose metabolism, borderline high cholesterol, fibromyalgia, PTSD, and chronic constipation presents to the ED today for evaluation of headache and left sided facial numbness x4 days. She states that while seated on night, she began to have a left-sided posterior headache. The following morning, she woke up with left sided facial numbness. She was evaluated at urgent care that same day. She had unremarkable workup/exam findings and was discharged home on a steroid taper with plans to follow up with PCP. She presents today with continued left sided facial numbness and headache. Her headache is localized to left parietal region. No radiation. Numbness is localized to left face extending from periorbital region to jaw. No associated facial pain. Denies trauma/injury. Denies hx of similar. She has not noticed any rashes. Denies any tick/ insect bites. Denies history of headaches/migraines. Related Data Home Medications ?Medication ?Instructions ?Recorded ?Confirmed fluoxetine 20 mg capsule 80 mg PO DAILY 06/28/20 08/10/24 lamotrigine 150 mg tablet 300 mg PO BEDTIME 06/28/20 08/10/24 risperidone 4 mg tablet 4 mg PO BEDTIME 12/29/21 08/10/24 lorazepam 0.5 mg tablet 0.5 mg PO TID PRN Anxiety 03/26/24 08/10/24 conjugated estrogens 0.625 mg/gram vaginal DAILY 05/05/24 08/10/24 vaginal cream (Premarin) amitriptyline 100 mg tablet mg PO 10/02/24 Previous Rx's ?Medication ?Instructions ?Recorded methylprednisolone 4 mg tablets in See Rx Instructions PO PER PKG DIR 10/02/24 a dose pack #21 ea Allergies Allergy/AdvReac Type Severity Reaction Status Date / Time No Known Allergies Allergy Verified 10/04/24 11:24 [No Known Allergies*] Review of Systems 2 Review of Systems: Constitutional: No fever, chills, fatigue, night sweats, weight changes ENT/Mouth: No ear pain, hearing loss, nasal congestion, sinus pain, rhinorrhea, sore throat Eyes: No eye pain, swelling, redness, vision changes, discharge Cardio: No chest pain, palpitations, ANTUNEZ, orthopnea, peripheral edema Pulm: No SOB, cough, sputum, wheezing, dyspnea, hemoptysis GI: No nausea, vomiting, hematemesis, abdominal pain, diarrhea, constipation, hematochezia, melena : No irregular bleeding, dysuria, frequency, urgency, hesitancy, hematuria, flank pain, urinary flow changes, urinary incontinence or retention MSK: No back pain, neck pain, joint pain, myalgias Skin: No lesions, rashes Neuro: No weakness, paresthesias, LOC, dizziness, headache, +numbness Psych: No anxiety/panic, depression, SI/HI, AH/VH All other systems reviewed and are negative. [facility] Past Medical History Attestation statement: The following information was validated with the patient. Source: old records reviewed and nursing notes reviewed Medical History Urinary incontinence Cervical cancer screening Osteoporosis screening Diabetes mellitus screening Bipolar disorder Surgical History History of endometrial ablation Hx of tubal ligation Hx of endoscopy History of colonoscopy Family History Family History Father Family history of high blood pressure History of macular degeneration Mother Hx of type 2 diabetes mellitus Family history of Alzheimer's disease Social History Social History Household Members: Spouse Housing: House Alcohol intake: never Patient Tobacco Use Status: Former Tobacco user Tobacco use type: Cigarette Smoked in Last 30 Days: No e-Cigarette/Vaping Use: Never Used Second Hand Smoke Exposure: No Use of substances other than those prescribed or required for medical reasons: No Advance Directives: No Advance Directives Information Provided: Yes Do you have a plan to hurt others: No Plan service: No Current occupational status: disabled Cognitive needs: No Hearing needs: No Vision needs: No Physical Exam ED Vital Signs: Vital Signs - 24 hr 10/04/24 11:21 10/04/24 14:03 10/04/24 14:41 Temperature 96.9 F 98.0 F 98.0 F Pulse Rate 63 63 63 Respiratory Rate 18 16 16 Blood Pressure 144/76 H 143/78 H 143/78 H Pulse Oximetry 100 98 98 Oxygen Delivery Method Room Air Room Air Room Air BMI result Body Mass Index 20.8 hypertensive, vitals otherwise wnl General: Well appearing, in no acute distress. Skin: Warm, dry, intact. No rashes or lesions. Head: Normocephalic, atraumatic. no palpable temporal aa. EENT: Hearing is intact b/l. Conjunctiva clear. PERRLA. EOM intact. Moist mucous membranes.? Facial exam: no tenderness over distribution of facial nerve. sensation intact to entire face - no sensory disturbance. no rash/ overlying skin changes. no trismus. left EAC and TM wnl. Neck: Supple without LAD Cardiac: Chest wall symmetric. RRR. Lungs: Normal respiratory effort without accessory muscle use. CTA bilaterally Ext: Upper and lower extremities atraumatic, without tenderness, deformity, swelling or erythema Neuro: AOx3. Normal speech. no facial droop, no pronator drift. NIH 0. CN 2-12 grossly intact. Strength 5/5 intact throughout. Sensation intact to light touch. NV intact distally. Ambulating with steady gait. NIH Stroke Scale Internal: Initial- Upon Arrival Level of Consciousness: Alert Level of Consciousness Questions: Answers both questions correctly Level of Consciousness Commands: Performs both tasks correctly Best Gaze: Normal Visual: No visual loss Facial Palsy: Normal Motor Arm (Right): No drift Motor Arm (Left): No drift Motor Leg (Right): No drift Motor Leg (Left): No drift Limb Ataxia: Absent Sensory: Normal Best Language: No aphasia Dysarthia: Normal Extinction and Inattention: No abnormality Score: 0 Course Course Course Narrative: RME: 64-year-old female presents to ED for left-sided headache and numbness since . Patient denies any visual disturbances, loss of vision, slurred speech, facial droop, paralysis of extremities, neck swelling, drooling, change in voice, any recent dental work. Patient was seen at urgent care started on steroids. NIH score is 0. Negative for signs of trauma. Head CT, EkG, and labs ordered Reevaluation(s) Reevaluation #1: 1257 -- CBC without leukocytosis. H&H around baseline. Thrombocytopenia, appears to be around patient's baseline. Chemistry without acute electrolyte abnormality requiring intervention. BUN slightly elevated to 24, normal creatinine. Appears to be around patient's baseline kidney function. CT head/brain without bleed, mass. > lyme testing pending > given hx of etoh use disorder in remission, will add on b12/folate 1456 -- inflammatory markers WNL. Unlikely giant cell arteritis. folate normal. B12 is elevated to 1045 - of unknown significance this could possibly be contributing to her paresthesias however less likely. I did discuss this finding with my attending Dr. Cortez. no ED/ inpatient intervention warranted. Patient reports taking a multivitamin daily. Advised to discontinue any supplementation at this time until she was able to follow up with her PCP for repeat labs. > patient's workup is essentially unremarkable. Her exam is completely benign and reassuring. I do not have concern for stroke. Her sensation is intact on my exam. ?Psychogenic or medication side effect. > she is declining any medication for her headache at this time. Advised to follow up with Neurology. Referral provided. Patient has remained stable throughout ED visit today. Discussed worrisome signs and symptoms and when to return to the ED. All questions answered at this time. Patient is agreeable with disposition and stable for discharge. Medications Administered Discontinued Medications Generic Name Dose Route Start Last Admin Trade Name Lambertq PRN Reason Stop Dose Admin Ketorolac Tromethamine 30 mg 10/04/24 13:48 10/04/24 14:33 Ketorolac Tromethamine 30 Mg/Ml Vial IM 10/04/24 13:49 Not Given ONCE ONE Medical Decision Making Medical Decision Making MDM Narrative: 64 year old female with pmhx significant for JORDI, impaired glucose metabolism, borderline high cholesterol, fibromyalgia, PTSD, and chronic constipation presents to the ED today for evaluation of headache and left sided facial numbness x4 days. exam is nonfocal. NIH 0. on facial exam, no palpable temporal artery. no tenderness over distribution of facial nerve. sensation intact to entire face - no sensory disturbance. no rash/ overlying skin changes. no trismus. left EAC and TM wnl. Differential diagnosis includes, anemia, electrolyte abnormality, migraine versus tension type headache, tmj. Lower suspicion for trigeminal neuralgia, giant cell arteritis. NIH is 0. Exam is not consistent with acute stroke. No headache red flags. Neurologic exam without evidence of meningismus. No focal neurologic findings. Presentation not consistent with acute intracranial bleed including SAH (lack of risk factors, headache history). Presentation not consistent with acute PRE OWNED SALES MANAGER infection including meningitis or brain abscess. Unlikely acute angle closure glaucoma given history and physical findings. Presentation not consistent with other acute, emergent causes of headache at this time. Plan: labs, viral swabs, CT head, inflammatory markers, re-evaluation. Patient declining any medication for her headache at this time. Differential Diagnosis Differential Diagnoses: The differential diagnosis associated with the presentation includes as above Admission/Observation not indicated. Lab Data MDM Lab Attestation statement: I reviewed the patient's lab results. as above 10/04/24 12:01 10/04/24 12:01 Labs: Lab Results 10/04/24 10/04/24 Range/Units 12:01 13:18 WBC 6.8 (4.8-10.8) X10*3/uL RBC 3.66 L (4.20-5.50) X10*6/uL Hgb 12.0 (12.0-16.0) g/dl Hct 35.3 L (37.0-47.0) % MCV 96.4 (80.0-98.0) fL MCH 32.8 (27.0-33.0) pg MCHC 34.0 (31.0-35.0) g/dl RDW 12.9 (11.0-16.0) % Plt Count 136 L (160-400) X10*3/uL MPV 8.2 L (9.4-12.3) fL Immature Gran % (Auto) 0.3 (0.0-0.4) % Neut % (Auto) 84.7 H (45-73) % Lymph % (Auto) 9.7 L (20-40) % [place] % (Auto) 4.6 (2-11) % Eos % (Auto) 0.6 (0-4) % Baso % (Auto) 0.1 (0-2) % Lymph # (Auto) 0.7 L (1.2-4.9) X10*3/uL [place] # (Auto) 0.3 (0.1-1.2) X10*3/uL Eos # (Auto) 0.0 (0.0-0.4) X10*3/uL Baso # (Auto) 0.0 (0.0-0.2) X10*3/uL Abs Immat Gran (auto) 0.02 (0.00-0.03) X10*3/uL Absolute Neuts (auto) 5.7 (2.0-8.3) x10*3/uL Absolute Nucleated RBC 0.000 (0.0-0.012) X10*3/uL Nucleated RBC % (auto) 0.0 (0.0-0.2) /100WBC ESR 6 (0-20) MM/HR PT 10.3 L (10.9-12.4) SEC INR 0.9 (0.9-1.1) APTT 27.6 (26.0-36.8) SEC Sodium 141 (135-145) mmol/L Potassium 4.5 (3.3-5.1) mmol/L Chloride 102 (96-108) mmol/L Carbon Dioxide 30 H (22-29) mmol/L Anion Gap 14 (12-20) BUN 24 H (9-16) mg/dL Creatinine 1.13 (0.5-1.4) mg/dL Estim Creat Clear Calc 55.3 Estimated GFR 48 Random Glucose 117 H (60-115) mg/dL Calcium 10.1 (8.4-10.2) mg/dL Total Bilirubin 0.2 (0.0-1.0) mg/dL AST 34 H (5-31) U/L ALT 43 H (0-31) U/L Alkaline Phosphatase 60 (39-117) U/L Troponin I High Sens < 2.7 (<3.5-17.0) ng/L C-Reactive Protein < 0.04 (< or = 0.50) mg/dL Total Protein 7.0 (6.5-8.0) g/dL Albumin 4.1 (3.5-5.0) g/dL Vitamin B12 1045 H (200-900) pg/mL Folate 14.9 (> or = 4.0) ng/mL Independent Interpretation I performed an independent interpretation of an: CT Scan Interpretation: CT head without bleed or mass Radiology Impression Discussion of test interpretation with radiology: I have reviewed the radiologist's reading. Radiologist Impression: Procedure(s): CT head/brain wo IV con Accession Number(s): [id number] cc: Hao Ferraro; Sergo Villasenor PA-C~ Report Number: [id number]: Total DLP = 655.00 mGy-cm CLINICAL HISTORY: left sided headache with facial numbness CT head without contrast Comparison: None Findings: No intra-axial mass, midline shift, hydrocephalus, or acute hemorrhage. No significant atrophy-like change or white matter disease. There is no sinus or mastoid fluid. The orbits are within normal limits. There is no acute fracture. IMPRESSION: 1. No acute intracranial findings. This document has been electronically signed by: Marko Patten MD on 10/04/2024 12:46:50 Prescription Management I considered prescription management with: Pain Medication Social Determinants Patient?s care significantly limited by Social Determinants of Health including: Other Social Determinant of Health Critical Care Time Critical Care Time Critical Care Time: No Discharge Plan Discharge Clinical Impression: Facial paresthesia, Headache, Elevated vitamin B12 level Patient Disposition: Home, Self-Care Instructions: Paresthesia (ED) Additional Instructions: You were evaluated in the ED today for facial numbness/headache. Your blood work today is reassuring. As disucssed, your vitaminn B12 levels were mildly elevated at 1045. Please stop taking your daily supplements and follow up with your PCP for repeat levels to make sure this normalizes. Your blood has been sent to the lab to rule out tick/lyme pathology. These results take a few days to come back. You will be contacted with any results that warrant treatment. The CT scan of your head is normal. There is no bleed or mass. Your physical exam is reassuring. At this time, there is no clear etiology of your symptoms. Continue your steroid pack prescribed to you at walk-in. Please follow up with your primary care provider. I have also provided you with a referral to neurology. Please call them to establish care, they will not call you. You may take Tylenol at home as needed for pain. Continue all home medications as prescribed. Return to the ED with any new or worsening symptoms including facial drooping, slurred speech, excruciating pain, vision changes, etc. In the case of an emergency call 911. Prescriptions: No Action lorazepam 0.5 mg tablet 0.5 mg PO TID PRN (Reason: Anxiety) Patient Comments: Patient stated she has left over tabs and started taking PRN. This was a scheduled medication. Rx Instructions: Last filled 08/19/23 #60. fluoxetine 20 mg capsule 80 mg PO DAILY Rx Instructions: Take 4 tabs daily. lamotrigine 150 mg tablet 300 mg PO BEDTIME Patient Comments: Patient takes at bedtime. risperidone 4 mg tablet 4 mg PO BEDTIME Premarin 0.625 mg/gram cream vaginal DAILY amitriptyline 100 mg tablet PO methylprednisolone 4 mg tablets,dose pack See Rx Instructions PO PER PKG DIR Qty: 21 0RF Rx Instructions: PO PER PKG DIR for 6 days [place] [facility] [place] Group] Sergo Villasenor PA-C [Primary Care Provider] - Interventions: ED Discharge Assessment Last Done: 10/04/24 14:41 Discharge Date/Time: 10/04/24 14:42 Print Language: Georgian
[2024-10-04 12:05] LABS: MANUAL DIFF FLAG NO
[2024-10-04 12:07] LABS: Basophils Percent Auto 0.1 % (0-2); Eosinophils Percent Auto 0.6 % (0-4); Hematocrit 35.3 % (37.0-47.0); Imm Gran Abs Auto 0.02 X10*3/uL (0.00-0.03); Imm Gran Pct Auto 0.3 % (0.0-0.4); Lymphocytes Absolute Auto 0.7 X10*3/uL (1.2-4.9); Lymphocytes Percent Auto 9.7 % (20-40); Mean Corpuscular Hemoglobin 32.8 pg (27.0-33.0); Mean Corpuscular Volume 96.4 fL (80.0-98.0); Mean Platelet Volume 8.2 fL (9.4-12.3); Monocytes Absolute Auto 0.3 X10*3/uL (0.1-1.2); Monocytes Percent Auto 4.6 % (2-11); Neutrophils Absolute Auto 5.7 x10*3/uL (2.0-8.3); Neutrophils Percent Auto 84.7 % (45-73); Platelet Count 136 X10*3/uL (160-400); Red Blood Count 3.66 X10*6/uL (4.20-5.50); Red Cell Distribution Width 12.9 % (11.0-16.0); White Blood Count 6.8 X10*3/uL (4.8-10.8)
[2024-10-04 12:12] LABS: INTERNATIONAL NORM RATIO 0.9 (0.9-1.1); Prothrombin Time 10.3 SEC (10.9-12.4)
[2024-10-04 12:15] LABS: Partial Thromboplastin Time 27.6 SEC (26.0-36.8)
[2024-10-04 12:20] LABS: Alanine Aminotransferase 43 U/L (0-31); Albumin Level 4.1 g/dL (3.5-5.0); Alkaline Phosphatase 60 U/L (39-117); Anion Gap 14 (12-20); Aspartate Amino Transferase 34 U/L (5-31); Bilirubin Total 0.2 mg/dL (0.0-1.0); Blood Urea Nitrogen 24 mg/dL (9-16); Calcium 10.1 mg/dL (8.4-10.2); Carbon Dioxide 30 mmol/L (22-29); Chloride 102 mmol/L (96-108); Creatinine Clr Calc Pharmacy 55.3; Estimated Glomerular Filt Rate 48; Glucose Random 117 mg/dL (60-115); Potassium 4.5 mmol/L (3.3-5.1); Sodium 141 mmol/L (135-145)
[2024-10-04 12:32] LABS: Troponin-I High Sensitivity < 2.7 ng/L (<3.5-17.0)
[2024-10-04 12:43] LABS: C Reactive Protein < 0.04 mg/dL (< or = 0.50)
--- OUTSIDE RECORDS SUMMARY | 2024-10-04 12:46 | XMS_ITS | Clinical Summary ---
Author Organization [facility] Address [address] [facility] [address] [place] [address] Phone Care Team Providers Care Nuclear Physicist Name Role Phone Sergo Villasenor Primary Care Provider [phone] Allergies No known active allergies Medications amitriptyline [...] [facility] [address] [facility] [address] [place] [id number] Anton Arce MD [address] [facility] [address] [place] [phone] Stage 3 chronic kidney disease, not otherwise specified (HCC) 10/30/2024 11:15 AM EDT Office Visit [facility] [address] [facility] [address] [place] [phone] Anton Arce MD [address] [facility] [address] [place] [address] Health Maintenance Due Date Last Done Comments Breast Cancer Screening 1960 Pneumococcal Vaccine: 65+ Ye ars (1 of 2 - PCV) 1964 Colorectal Cancer Screening: Annual FOBT 2007 Colorectal Cancer Screening: Colonoscopy 2007 Colorectal Cancer Screening: Sigmoidoscopy 2007 Influenza Vaccine (#1) 2024 Hepatitis B Vaccine Aged Out No longe r eligible based on patient's age to complete this topic Insurance MEDICARE [facility] MEDICARE [facility] Member Subscriber Plan / Payer (Ef fective 2023-) Name:Ragini Maravilla Relation to Subscriber:Self Name:Ragini Maravilla Payer ID:[id number] (NAIC) Group ID:Not on file Type:Not on file Address: [address] Care Teams Nuclear Physicist Relationship Specialty Start Date End Date Sergo Villasenor PA [address], [address] [place], [place] [id number] PCP - General Physician Transfer Station Attendant 05/29/21
[2024-10-04 13:08] LABS: Erythrocyte Sedimentation Rate 6 MM/HR (0-20)
--- NOTE | 2024-10-04 13:21 | PC.NURSE ---
labs drawn per order, neuro intact
[2024-10-04 14:03] VITALS: BP 143/78; PULSE 63; RESP 16; TEMP 36.7; O2SAT 98
[2024-10-04 14:11] LABS: Folate 14.9 ng/mL (> or = 4.0); Vitamin B12 1045 pg/mL (200-900)
--- NOTE | 2024-10-04 14:34 | PC.NURSE ---
patient a&ox3, vss, pt c/o headache pt refused medication ordered, pt to be discharged home.
[2024-10-04 14:41] VITALS: BP 143/78; PULSE 63; RESP 16; TEMP 36.7; O2SAT 98
[2024-10-05 13:03] LABS: Lyme Abs Screen <0.90 index
[2024-10-05 20:18] LABS: A. Phagocytphilium DNA,RT-PCR NOT DETECTED (NOT DETECTED); Babesia Microti DNA, RT-PCR NOT DETECTED (NOT DETECTED); Borrelia Miyamotoi,DNA RT-PCR NOT DETECTED (NOT DETECTED); E.Chaffeensis DNA RT-PCR NOT DETECTED (NOT DETECTED); Lyme(Borrelia ssp)DNA RT-PCR NOT DETECTED (NOT DETECTED)
== END 2024-10-04 14:42 | disposition home or self-care (01) ==
PROVIDERS: Physician Assistant; Physician Assistant Medical; Emergency Provider Emergency Medicine; PCP Physician Assistant
DX: R20.2 Paresthesia of skin (principal); R51.9 Headache, unspecified; R79.89 Other specified abnormal findings of blood chemistry; K59.00 Constipation, unspecified; Z87.891 Personal history of nicotine dependence; Z79.899 Other long term (current) drug therapy; Z51.81 Encounter for therapeutic drug level monitoring
CPT/HCPCS: 36415; 70450; 80053; 82607; 82746; 84484; 85025; 85610; 85652; 85730; 86140; 86617; 86618; 87468; 87469; 87478; 87484; 87798; 96372; 99284

== ENCOUNTER → 2024-10-04 11:26 | Outpatient (BNV) | payer MEDICARE, SELFPAY | PROVIDERS: Emergency Provider Emergency Medicine; PCP Physician Assistant; Visit Provider Radiology Vascular & Interventional Radiology | DX: G50.1 Atypical facial pain (principal) | CPT/HCPCS: 70450 ==

== ENCOUNTER 2024-10-09 12:58 | Outpatient (AMB) | payer MEDICARE, SELFPAY ==
--- NOTE | 2024-10-09 13:01 | MHC.PC.OV ---
Vital Signs 10/09/24 13:02 Height 6 ft 1 in Weight 163 lb 4 oz BMI 21.5 BP 100/72 Blood Pressure Location Lt brachial Position Sitting Pulse 74 Pulse Source Pulse Oximeter Temp 96.9 F Temp Source Temporal Artery Scan Pulse Oximetry (%) 100 Oxygen Delivery Method Room Air Intake Visit Re[place] [facility] [place] Numbness in face, headaches Intake Note: Patient is here to follow-up after a visit the emergency department at [facility] on 10/04/24 Fuel House Attendant Required: No Meteorological Equipment Repairer: Present Accompanied by: Spouse Allergies No Known Allergies [No Known Allergies*] Allergy (Verified 10/09/24 13:02) Tobacco use date assessed: 10/09/24 Fall risk assessment: No Falls in past year Last assessed Fall Risk: 10/09/24 Dental Screening Dental Screen Date: 08/10/24 HPI HPI Comments History of Present Illness Details 64 y/o female patient who presents to the clinic for EDF. She was admitted at [facility] on 10/04/24 due to Facial Parenthesis, and persistent Headaches. She was found to have Elevated Levels of Vitamin B12 from the OTC Vitamins that she takes Daily. She was advised to stop taking them to see if symptoms will subside. Today reports some mild symptom improvement. She currently takes Acetaminophen for pain relief. Pt would like to see Neurologist for her headaches - she was told she might have Migraine headaches. Denies h/o THANH - had Sleep study in the past with negative results. It was advised to repeat Labs to check Vitamin B12 levels. [facility] Medical History Urinary incontinence Cervical cancer screening Osteoporosis screening Diabetes mellitus screening Bipolar disorder Surgical History History of endometrial ablation Hx of tubal ligation Hx of endoscopy History of colonoscopy Family History Father Family history of high blood pressure History of macular degeneration Mother Hx of type 2 diabetes mellitus Family history of Alzheimer's disease Social History Household Members: Spouse Housing: House Alcohol intake: never Patient Tobacco Use Status: Former Tobacco user Tobacco use type: Cigarette e-Cigarette/Vaping Use: Never Used Second Hand Smoke Exposure: Yes service: No Current occupational status: disabled Cognitive needs: No Hearing needs: No Vision needs: No Female Reproductive History Menstrual Age of Menarche: 10 Questionnaire Thrive Questionnaire Date Thrive assessed: 08/10/24 I am a: Patient What is your living situation today?: I have a steady place to live Within the past 12 months, did the food you bought not last and you didn't have the money to get more?: Never true Within the past 12 months, did you worry whether your food would run out before you got money to buy more?: Never true Do you have trouble paying for medicines?: No Do you have trouble getting transportation to medical appointments?: No Do you have trouble paying your heating and electricity bill?: No Do you have trouble taking care of your child, family member or friend?: No Do you have trouble with day-to-day activities such as bathing, preparing meals, shopping, managing finances, etc.?: No Are you currently unemployed and looking for a job?: No Are you interested in more education?: No Please select the resources that you would like help with: None Currently or been in a relationship where the following occur: No concerns reported THRIVE Score: 0 AUDIT C Alcohol Use Questionnaire (AUDIT-C) 3. How often do you have six or more drinks on one occasion?: Never Total Score: 0 JORDI-7 AMB Questionnaire JORDI-7 Date JORDI - 7 assessed: 08/10/24 Source: Developed by Drs. Conner Bledsoe, Hoa Batista, Zoltan Hopper and colleagues, with an educational braeden from [employer]. Review of Systems Const All systems reviewed & are unremarkable except as noted in HPI and below Physical exam (Primary Care) Vital Signs: Last Vital Signs Temp 96.9 F 10/09/24 13:02 Pulse 74 10/09/24 13:02 BP 100/72 10/09/24 13:02 Pulse Ox 100 10/09/24 13:02 Oxygen Delivery Method Room Air 10/09/24 13:02 BMI result Body Mass Index 21.5 Tobacco/Smoking Status: Tobacco use Status Tobacco use date assessed 10/09/24 10/09/24 13:07 Patient Tobacco Use Status Former Tobacco user 10/09/24 13:07 Tobacco use type Cigarette 10/09/24 13:07 e-Cigarette/Vaping Use Never Used 10/09/24 13:07 Thrive Assessment: Date of Thrive Assessment Date Thrive assessed 08/10/24 10/09/24 13:07 Currently or been in a relationship where the following occur: No concerns reported Const General: cooperative and no acute distress Orientation/consciousness: patient oriented x3 HENMT Head: Yes normocephalic Eyes Pupils: Equal, round and reactive pupils present Resp Effort & Inspection: normal respiratory effort Cardio Heart sounds: S1 normal heart sound present and S2 normal heart sound present Neuro General: patient oriented x3, gait normal and moves all extremities Cranial nerves: Yes Equal, round and reactive pupils present Psych Speech and movement: Normal speech and movement present Coding Level of Care Code Est Pt Level 4 (41262) Diagnoses Facial paresthesia R20.2 Elevated vitamin B12 level R79.89 Acute nonintractable headache, unspecified headache type R51.9 Headache type: unspecified Headache chronicity pattern: acute headache Intractability: not intractable Time Spent (min) 20 Assessment & Plan Assessment & Plan (1) Facial paresthesia: Code(s): R20.2 - Paresthesia of skin Category: Medical Plan: Symptoms improving. Placed Referral to Neurology. Pt stopped taking Vitamins (2) Elevated vitamin B12 level: Code(s): R79.89 - Other specified abnormal findings of blood chemistry Category: Medical Plan: Will have PCP repeat Labs in few weeks. (3) Headache: Code(s): R51.9 - Headache, unspecified Category: Medical Qualifiers: Headache type: unspecified Headache chronicity pattern: acute headache Intractability: not intractable Qualified Code(s): R51.9 - Headache, unspecified Plan: Placed referral to Neurology. Continue taking Acetaminophen for pain relief. Orders: Referrals Neurology Referral R20.2 - Paresthesia of skin, R51.9 - Headache, unspecified
[2024-10-09 13:02] VITALS: BP 100/72; PULSE 74; TEMP 36.1; O2SAT 100; BMI 21.5
--- OUTSIDE RECORDS SUMMARY | 2024-10-09 14:30 | XMS_ITS | Clinical Summary ---
Author Organization [facility] ity Address [id number] [place] [id number] Care Team Providers Care Photogrammetric Tech Name Role Phone Sergo Villasenor Primary Care [...] age to complete this topic Care Teams Photogrammetric Tech Relationship Specialty Start Date End Date Sergo Villasenor PA PCP - General Internal Medicine 02/02/19
--- OUTSIDE RECORDS SUMMARY | 2024-10-09 14:30 | XMS_ITS | Clinical Summary ---
Author Organization [facility] Address 100 [facility] 20 0 [place] [address] Phone Care Team Providers Care Cell Tower Climber Name Role Phone Sergo Villasenor Primary Care Provider [phone] Allergies No known active allergies Medications amitriptyline [...] [facility] [address] [facility] 200 [place] [phone] Anton Arce MD [address] [facility] 204 [place] [phone] Stage 3 chronic kidney disease, not otherwise specified (HCC) 10/30/2024 11:15 AM EDT Office Visit [facility] [address] [facility] 204 [place] [phone] Anton Arce MD [address] [facility] 204 [place] [address] Health Maintenance Due Date Last Done Comments Breast Cancer Screening 1960 Pneumococcal Vaccine: 65+ Ye ars (1 of 2 - PCV) 1964 Colorectal Cancer Screening: Annual FOBT 2007 Colorectal Cancer Screening: Colonoscopy 2007 Colorectal Cancer Screening: Sigmoidoscopy 2007 Influenza Vaccine (#1) 2024 Hepatitis B Vaccine Aged Out No longe r eligible based on patient's age to complete this topic Insurance MEDICARE [facility] MEDICARE [facility] Member Subscriber Plan / Payer (Ef fective 2023-) Name:Ragini Maravilla Relation to Subscriber:Self Name:Ragini Maravilla Payer ID:[id number] (NAIC) Group ID:Not on file Type:Not on file Address: [address] Care Teams Cell Tower Climber Relationship Specialty Start Date End Date Sergo Villasenor PA [address], [address] [place], [place] [phone] PCP - General Physician Box Truck Washer 05/29/21
== END 2024-10-09 13:34 | disposition home or self-care (01) ==
LOC: HO.HMCH 12:58
PROVIDERS: PCP Physician Assistant; Visit Provider Nurse Practitioner Family
DX: R20.2 Paresthesia of skin (principal); R79.89 Other specified abnormal findings of blood chemistry; R51.9 Headache, unspecified

== ENCOUNTER → 2024-10-09 12:58 | Outpatient (BNVA) | payer MEDICARE, SELFPAY | PROVIDERS: PCP Physician Assistant; Visit Provider Nurse Practitioner Family | DX: R20.2 Paresthesia of skin (principal); R79.89 Other specified abnormal findings of blood chemistry; R51.9 Headache, unspecified | CPT/HCPCS: 99212 ==

== ENCOUNTER 2024-12-02 11:27 | Outpatient (REF) | payer MEDICARE, SELFPAY ==
[2024-12-02 12:11] LABS: Hematocrit 35.2 % (37.0-47.0); Hemoglobin 12.1 g/dl (12.0-16.0); Mean Corpuscular HGB Conc 34.4 g/dl (31.0-35.0); Mean Corpuscular Hemoglobin 32.3 pg (27.0-33.0); Mean Corpuscular Volume 93.9 fL (80.0-98.0); Mean Platelet Volume 9.1 fL (9.4-12.3); Platelet Count 144 X10*3/uL (160-400); Red Blood Count 3.75 X10*6/uL (4.20-5.50); Red Cell Distribution Width 12.4 % (11.0-16.0); White Blood Count 4.2 X10*3/uL (4.8-10.8)
[2024-12-02 12:26] LABS: Anion Gap 10 (12-20); Blood Urea Nitrogen 31 mg/dL (9-16); Carbon Dioxide 32 mmol/L (22-29); Chloride 99 mmol/L (96-108); Estimated Glomerular Filt Rate 45; Glucose Fasting 85 mg/dL (60-99); Potassium 4.5 mmol/L (3.3-5.1); Sodium 136 mmol/L (135-145)
[2024-12-02 12:27] LABS: Alanine Aminotransferase 36 U/L (0-31); Albumin Level 4.2 g/dL (3.5-5.0); Alkaline Phosphatase 57 U/L (39-117); Aspartate Amino Transferase 33 U/L (5-31); Bilirubin Total 0.3 mg/dL (0.0-1.0); Calcium 10.3 mg/dL (8.4-10.2); Cholesterol 194 mg/dL (<200); HDL Cholesterol 69 mg/dL (>40); LDL Cholesterol Calculated 107 mg/dL (<100); Total Protein 6.7 g/dL (6.5-8.0); Triglycerides 92 mg/dL (<150)
--- OUTSIDE RECORDS SUMMARY | 2024-12-02 12:53 | XMS_ITS | Clinical Summary ---
Author Organization [facility] ity Address [address] [place] [address] Care Team Providers Care Records Management Clerk Name Role Phone Sergo Villasenor Primary Care [...] - 2023-2 5 season) 2024 Influenza Vaccine (Season Ended) 2025 RSV Immunization Adult Patie nts (1 - 1-dose 75+ series) 2033 HIB [...] age to complete this topic Meningococcal B Vaccine Aged Out No l onger eligible based on patient's age to complete this topic RSV Immunization Patients Un teddy 20 months Aged Out No longer eligible b ased on patient's age to complete this topic Varicella Vaccines Aged Out No longer eligible based on patient's age to complete this topic Care Teams Records Management Clerk Relationship Specialty Start Date End Date Sergo Villasenor PA PCP - General Internal Medicine 02/02/19
--- OUTSIDE RECORDS SUMMARY | 2024-12-02 12:53 | XMS_ITS | Clinical Summary ---
Author Organization [facility] Address 100 [facility] 20 0 [place] [address] Phone Care Team Providers Care Ground Wirer Name Role Phone Sergo Villasenor Primary Care Provider [phone] Allergies No known active allergies Medications amitriptyline [...] of lithium 11/28/2020 Cyst of kidney 11/28/2020 Encounters Date Type Department Care Team Description 10/30/2024 11:15 AM EDT Office Visit [facility] [address] [facility] 204 [place] [address] Anton Arce MD Stage 3 chronic kidney disease, not otherwise specified (HCC) (Primary Dx); Long-term current use of lithium; Cyst of kidney 10/20/2024 Orders Only [facility] [address] [facility] 200 [place] [phone] Anton Arce MD Stage 3 chronic kidney disease, not otherwise specified (HCC) from Last 3 Months Family History Medical History Relation Comments Gout [...] Sign Reading Time Taken Comments Blood Pressure 119/68 10/30/2024 11:41 AM EDT Pulse 68 10/30/2024 11:41 AM EDT Temperature - - Respiratory Rate - - Oxygen Saturation 97% 10/21/2023 1:52 PM EDT Inhaled Oxygen Concentration - - Weight 69.4 kg (153 lb) 10/30/2024 11:41 AM EDT Height 185.4 cm (6' 1 ) 10/30/2024 11:41 AM EDT Body Mass Index 20.19 10/30/2024 11:41 AM EDT Plan of Treatment Upcoming Encounters Date Type Department Care Team (Late st Contact Info) Description 11/01/2025 4:00 PM EDT Office Visit [facility] [address] [facility] 204 [place] [phone] Anton Arce MD [address] [facility] 204 [place] [phone] Health Maintenance Due Date Last Done Comments Breast Cancer Screening 1958 Pneumococcal Vaccine: 50+ Ye ars (1 of 2 - PCV) 1977 Colorectal Cancer Screening: Annual FOBT 2007 Colorectal Cancer Screening: Colonoscopy 2007 Colorectal Cancer Screening: Sigmoidoscopy 2007 Influenza Vaccine (Season Ended) 2025 Hepatitis B Vaccine Aged Out No longe r eligible based on patient's age to complete this topic Procedures Procedure Name Priority Date/Time Associated Diagnosis Comments PTH, INTACT Routine 10/19/2024 3:24 PM EDT Stage 3 chronic kidney disease, not otherwise specified (HCC) VITAMIN D 25 HYDROXY Routine 10/19/2024 3:24 PM EDT Stage 3 chronic kidney disease, not otherwise specified (HCC) URINE ALBUMIN / CREATININE RATIO Routine 10/19/2024 3:24 PM EDT Stage 3 chronic kidney disease, not otherwise specified (HCC) RENAL FUNCTION PANEL Routine 10/19/2024 3:24 PM EDT Stage 3 chronic kidney disease, not otherwise specified (HCC) from Last 3 Months Results * Urine albumin / creatinine ratio (10/19/2024 3:24 PM EDT) Creatinine, Ur 22.0 Not Estab. mg/dL [facility] Albumin, Urine <3.0 Not Estab. ug/mL [facility] Albumin/Creatin ine Ratio <14 0 - 29 mg/g creat [facility] Comment: ? Normal: ?0 - ??29 ? Moderately increased: 30 - 300 ? Severely increased: ? >300 Urine (Urine, Clean Catch) 10/19/2024 3:24 PM EDT 10/19/2024 us Anton Arce MD LAB URINE ORDERABLES Final Resul t [facility] [address] [place] [address] * Vit D 25 hydroxy (CKD 2,3,4,5) (10/19/2024 3:24 PM EDT) Vitamin D, 25-OH, Total 65.8 30.0 - 100.0 ng/mL [facility] Comment: Vitamin D deficiency has been defined by the [place] of Medicine and an Endocrine Society practice guideline as a level of serum 25-OH vitamin D less than 20 ng/mL (1,2). The Endocrine Society went on to further define vitamin D insufficiency as a level between 21 and 29 ng/mL (2). 1. IOM ([place] of Medicine). 2010. Dietary reference ?? intakes for calcium and D. [place]: The ?? National [employer] Press. 2. Kathe MF, Virgilio LEVY, Claudine CARTER, et al. ?? Evaluation, treatment, and prevention of vitamin D ?? deficiency: an Endocrine Society clinical practice ?? guideline. JCEM. 2010; 96(7):1911-30. Blood (Blood, Venous) 10/19/2024 3:24 PM EDT 10/19/2024 us Anton Arce MD LAB BLOOD ORDERABLES Final Resul t Performing Organization Address City/[facility]/ZIP Co de Phone Number [facility] [address] [place] [address] * PTH, intact (10/19/2024 3:24 PM EDT) PTH 21 15 - 65 pg/mL [facility] Blood (Blood, Venous) 10/19/2024 3:24 PM EDT 10/19/2024 Anton Arce MD LAB BLOOD ORDERABLES Final Resul t [facility] [address] [place] [address] * (ABNORMAL) Renal function panel (10/19/2024 3:24 PM EDT) Glucose 86 70 - 99 mg/dL [facility] BUN 32(H) 8 - 27 mg/dL [facility] Creatinine 1.37(H) 0.57 - 1.00 mg/dL [facility] eGFR CKD-EPI CR 2020 43(L) >59 mL/min/1.7 3 [facility] BUN/Creatinine Ratio 23 12 - 28 [facility] Sodium 138 134 - 144 mmol/L [facility] Potassium 4.4 3.5 - 5.2 mmol/L [facility] Chloride 97 96 - 106 mmol/L [facility] Bicarbonate (CO2) 25 20 - 29 mmol/L [facility] Calcium 10.4(H) 8.7 - 10.3 mg/dL [facility] Comment:Verified by repeat analysis Albumin 4.5 3.9 - 4.9 g/dL [facility] Phosphorus 3.9 3.0 - 4.3 mg/dL [facility] Blood (Blood, Venous) 10/19/2024 3:24 PM EDT 10/19/2024 us Anton Arce MD LAB BLOOD ORDERABLES Final Resul t [facility] [address] [place] [address] from Last 3 Months Insurance Medicare [facility] Medicare [facility] Member Subscriber Plan / Payer (Ef fective 2023-) Name:Ragini Maravilla Relation to Subscriber:Self Name:Renita, Ragini K Payer ID:[id number] (NAIC) Group ID:Not on file Type:Not on file Address: [place] [id number] Care Teams Ground Wirer Relationship Specialty Start Date End Date Sergo Villasenor PA [address], [address] [place], [place] [phone] PCP - General Physician Oven Heater Helper 05/29/21
[2024-12-02 12:56] LABS: Folate 11.7 ng/mL (> or = 4.0); Vitamin B12 874 pg/mL (200-900)
== END 2024-12-02 11:28 | disposition home or self-care (01) ==
LOC: HO.LAB 11:27
PROVIDERS: PCP Physician Assistant; Visit Provider Physician Assistant
DX: E78.9 Disorder of lipoprotein metabolism, unspecified (principal); N18.30 Chronic kidney disease, stage 3 unspecified; E53.8 Deficiency of other specified B group vitamins; F10.21 Alcohol dependence, in remission
CPT/HCPCS: 36415; 80053; 80061; 82607; 82746; 85027

== ENCOUNTER 2024-12-09 10:01 | Outpatient (AMB) | payer MEDICARE, SELFPAY ==
[2024-12-09 10:07] VITALS: BP 122/72; PULSE 70; TEMP 36.3; O2SAT 99; BMI 21.0
--- NOTE | 2024-12-09 10:07 | A.OFFPC_ITS ---
Vital Signs 12/09/24 10:07 Height 6 ft 1 in Weight 159 lb 2 oz BMI 21.0 BP 122/72 Blood Pressure Location Lt brachial Position Sitting Pulse 70 Pulse Source Pulse Oximeter Temp 97.3 F Temp Source Temporal Artery Scan Pulse Oximetry (%) 99 Oxygen Delivery Method Room Air Intake Visit Reasons: ER Follow up Pinion Staker Required: No Accompanied by: Self / Same As Patient Allergies No Known Allergies [No Known Allergies*] Allergy (Verified 12/09/24 10:19) Medication List - Last Reconciled 12/09/24 by Sergo Villasenor PA-C amitriptyline mg PO conjugated estrogens (Premarin) vaginal DAILY fluoxetine 80 mg PO DAILY lamotrigine 300 mg PO BEDTIME lorazepam 1 mg PO TID PRN methylprednisolone PO PER PKG DIR for 6 days risperidone 4 mg PO BEDTIME Tobacco use date assessed: 10/09/24 Fall risk assessment: No Falls in past year Last assessed Fall Risk: 12/09/24 Dental Screening Dental Screen Date: 08/10/24 HPI ER Follow up HPI Details patient is a 64-year-old female here today for an ER follow-up visit. Patient has a past medical history significant for generalized anxiety disorder, impaired glucose metabolism, borderline high cholesterol, fibromyalgia, PTSD, chronic constipation. Patient was seen at the [place] emergency room visit concerning facial paresthesia and headache. She developed left-sided facial numbness and tingling, which persisted and led to an ER visit where evaluations showed no acute findings. Subsequently, she experienced several intense, left-sided headaches, now resolved. Her Vitamin B12 levels are stable following modification of supplementation. Currently over the last few weeks her severe head pain have resolved. She has upcoming appointment in February with Neurology we did discuss perhaps starting an as needed medication for migraine which he is agreeable to start. [facility] Medical History Urinary incontinence Cervical cancer screening Osteoporosis screening Diabetes mellitus screening Bipolar disorder Surgical History History of endometrial ablation Hx of tubal ligation Hx of endoscopy History of colonoscopy Family History Father Family history of high blood pressure History of macular degeneration Mother Hx of type 2 diabetes mellitus Family history of Alzheimer's disease Social History Household Members: Spouse Housing: House Alcohol intake: never Patient Tobacco Use Status: Former Tobacco user Tobacco use type: Cigarette e-Cigarette/Vaping Use: Never Used Second Hand Smoke Exposure: Yes service: No Current occupational status: disabled Cognitive needs: No Hearing needs: No Vision needs: No Female Reproductive History Menstrual Age of Menarche: 10 Questionnaire Thrive Questionnaire Date Thrive assessed: 08/10/24 I am a: Patient What is your living situation today?: I have a steady place to live Within the past 12 months, did the food you bought not last and you didn't have the money to get more?: Never true Within the past 12 months, did you worry whether your food would run out before you got money to buy more?: Never true Do you have trouble paying for medicines?: No Do you have trouble getting transportation to medical appointments?: No Do you have trouble paying your heating and electricity bill?: No Do you have trouble taking care of your child, family member or friend?: No Do you have trouble with day-to-day activities such as bathing, preparing meals, shopping, managing finances, etc.?: No Are you currently unemployed and looking for a job?: No Are you interested in more education?: No Please select the resources that you would like help with: None Currently or been in a relationship where the following occur: No concerns reported THRIVE Score: 0 JORDI-7 AMB Questionnaire JORDI-7 Date JORDI - 7 assessed: 08/10/24 Source: Developed by Drs. Conner Bledsoe, Hoa Batista, Zoltan Hopper and colleagues, with an educational braeden from [employer]. Review of Systems Const Denies headache(s) Eyes Denies loss of vision ENT Denies vertigo, Denies dizziness, Denies headache(s) and Denies sore throat Card Denies chest pain, Denies leg edema and Denies lightheadedness Resp Denies cough, Denies hemoptysis and Denies wheezing GI Denies abdominal pain, Denies melena, Denies constipation, Denies diarrhea and Denies vomiting Denies urinary frequency, Denies dysuria and Denies urinary urgency Musc Denies arthralgias, Denies joint swelling, Denies numbness and Denies tingling Neuro Denies Abnormal speech present, Denies behavioral changes, Denies vertigo, Denies dizziness, Denies headache(s), Denies loss of vision, Denies memory loss, Denies numbness and Denies tingling Psych Denies anxiety, Denies behavioral changes, Denies depression, Denies memory loss and Denies panic attacks Zay/Lymph Denies easy bleeding and Denies easy bruising Aller/Immun Denies wheezing Physical exam (Primary Care) Vital Signs: Last Vital Signs Temp 97.3 F 12/09/24 10:07 Pulse 70 12/09/24 10:07 BP 122/72 12/09/24 10:07 Pulse Ox 99 12/09/24 10:07 Oxygen Delivery Method Room Air 12/09/24 10:07 BMI result Body Mass Index 21.0 Tobacco/Smoking Status: Tobacco use Status Tobacco use date assessed 10/09/24 12/09/24 10:08 Patient Tobacco Use Status Former Tobacco user 12/09/24 10:08 Tobacco use type Cigarette 12/09/24 10:08 e-Cigarette/Vaping Use Never Used 12/09/24 10:08 Thrive Assessment: Date of Thrive Assessment Date Thrive assessed 08/10/24 12/09/24 10:08 Currently or been in a relationship where the following occur: No concerns reported Const General: healthy appearing, no acute distress, alert and awake Nutritional Appearance: well nourished Orientation/consciousness: oriented to person, oriented to place and oriented to time HENMT Ears: TM's normal bilaterally General nose exam: Normal nasal mucous membranes and turbinates present Eyes Conjunctivae: conjunctivae normal Sclerae: sclerae normal Pupils: Equal, round and reactive pupils present Neck Neck: Yes no lymphadenopathy and Yes no JVD Thyroid: Thyroid normal Carotids: no bruits Resp Effort & Inspection: normal respiratory effort and not tachypneic Auscultation: no crackles, no rales, no rhonchi and no wheezes Cardio Rate: regular rate Rhythm: regular rhythm Heart sounds: no murmurs and normal S1 and S2 GI Palpation (GI): Soft to palpation, nontender, no hepatomegaly and no splenomegaly Auscultation: normal bowel sounds Skin General skin exam: no rashes or lesions noted and dry skin Neuro General: oriented to person, oriented to place and oriented to time Cranial nerves: Yes Equal, round and reactive pupils present Speech: No Abnormal speech present Gait exam (Neuro): Normal gait present Motor exam (neuro): no tremor noted Extrem Right upper extremity: full ROM Left upper extremity: full ROM Right lower extremity: full ROM; no edema Left lower extremity: full ROM; no edema Psych Mental Status: mental status grossly normal Speech and movement: Normal speech and movement present Affect: normal affect Attitude: cooperative Thought process: Normal thought process present Coding Level of Care Code Est Pt Level 3 (53655) Diagnoses Episodic cluster headache, not intractable G44.019 Headache chronicity pattern: episodic headache Intractability: not intractable Assessment & Plan Assessment & Plan (1) Neuralgic migraines: Code(s): G44.009 - Cluster headache syndrome, unspecified, not intractable Category: Medical Qualifiers: Headache chronicity pattern: episodic headache Intractability: not intractable Qualified Code(s): G44.019 - Episodic cluster headache, not intractable Plan: Sumatriptan prescribed for migraine management to use on the onset of migraine. Encouraged tracking of potential triggers. Has upcoming appointment with Neurology. Medications: New sumatriptan succinate take 1 tab at onset of headache; if no relief may repeat 1 tab after at least 2 hrs; max = 4 tabs/24 hr PO 9 tabs 0RF 30 days G44.019 - Episodic cluster headache, not intractable
--- OUTSIDE RECORDS SUMMARY | 2024-12-09 10:54 | XMS_ITS | Clinical Summary ---
Author Organization [facility] Address 100 [facility] [address] 0 [place] [address] Phone Care Team Providers Care Railway Shunter Name Role Phone Sergo Villasenor Primary Care Provider [phone] Allergies No known active allergies Medications amitriptyline [...] Visit [facility] [address] [facility] 204 [place] [address] Anton Arce MD Stage 3 chronic kidney disease, not otherwise specified (HCC) (Primary Dx); Long-term current use of lithium; Cyst of kidney 10/20/2024 Orders Only [facility] [address] [facility] 200 [place] [phone] Anton Arce MD Stage 3 chronic kidney [...] Visit [facility] [address] [facility] 204 [place] [phone] Anton Arce MD [address] [facility] 204 [place] [phone] Health Maintenance Due Date Last Done Comments [...] Creatinine, Ur 22.0 Not Estab. mg/dL [facility] Albumin, Urine <3.0 Not Estab. ug/mL [facility] Albumin/Creatin ine Ratio <14 0 - 29 mg/g creat [facility] Comment: ? Normal: ?0 - ??29 ? Moderately increased: 30 - 300 ? Severely increased: ? >300 Urine (Urine, Clean Catch) 10/19/2024 3:24 PM EDT 10/19/2024 us Anton Arce MD LAB URINE ORDERABLES Final Resul t [facility] [address] [place] [address] * Vit D 25 hydroxy (CKD 2,3,4,5) (10/19/2024 3:24 PM EDT) Vitamin D, 25-OH, Total 65.8 30.0 - 100.0 ng/mL [facility] Comment: Vitamin D deficiency has been defined by the [place] of Medicine and an Endocrine Society practice guideline as a level of serum 25-OH vitamin D less than 20 ng/mL (1,2). The Endocrine Society went on to further define vitamin D insufficiency as a level between 21 and 29 ng/mL (2). 1. IOM ([place] of Medicine). 2010. Dietary reference ?? intakes for calcium and D. [place]: The ?? National [employer] Press. 2. Kathe MF, Virgilio LEVY, Claudine CARTER, et al. ?? Evaluation, treatment, and prevention of vitamin D ?? deficiency: an Endocrine Society clinical practice ?? guideline. JCEM. 2010; 96(7):1911-30. Blood (Blood, Venous) 10/19/2024 3:24 PM EDT 10/19/2024 us Anton Arce MD LAB BLOOD ORDERABLES Final Resul t Performing Organization Address City/[facility]/ZIP Co de Phone Number [facility] [address] [place] [address] * PTH, intact (10/19/2024 3:24 PM EDT) PTH 21 15 - 65 pg/mL [facility] Blood (Blood, Venous) 10/19/2024 3:24 PM EDT 10/19/2024 Anton Arce MD LAB BLOOD ORDERABLES Final Resul t [facility] [address] [place] [address] * (ABNORMAL) Renal function panel (10/19/2024 3:24 PM EDT) Glucose 86 70 - 99 mg/dL [facility] BUN 32(H) 8 - 27 mg/dL [facility] Creatinine 1.37(H) 0.57 - 1.00 mg/dL [facility] eGFR CKD-EPI CR 2020 43(L) >59 mL/min/1.7 3 [facility] BUN/Creatinine Ratio 23 12 - 28 [facility] Sodium 138 134 - 144 mmol/L [facility] Potassium 4.4 3.5 - 5.2 mmol/L [facility] Chloride 97 96 - 106 mmol/L [facility] Bicarbonate (CO2) 25 20 - 29 mmol/L [facility] Calcium 10.4(H) 8.7 - 10.3 mg/dL [facility] Comment:Verified by repeat analysis Albumin 4.5 3.9 - 4.9 g/dL [facility] Phosphorus 3.9 3.0 - 4.3 mg/dL [facility] Blood (Blood, Venous) 10/19/2024 3:24 PM EDT 10/19/2024 us Anton Arce MD LAB BLOOD ORDERABLES Final Resul t [facility] [address] [place] [address] from Last 3 Months Insurance Medicare [facility] Medicare [facility] Member Subscriber Plan / Payer (Ef fective 2023-) Name:Ragini Maravilla Relation to Subscriber:Self Name:Renita, Ragini K Payer ID:[id number] (NAIC) Group ID:Not on file Type:Not on file Address: [place] [id number] Care Teams Railway Shunter Relationship Specialty Start Date End Date Sergo Villasenor PA [address], [address] [place], [place] [phone] PCP - General Physician Calciner Operator Helper 05/29/21
--- OUTSIDE RECORDS SUMMARY | 2024-12-09 10:54 | XMS_ITS | Clinical Summary ---
Author Organization [facility] ity Address [address] [place] [address] Care Team Providers Care Principal Developer Name Role Phone Sergo Villasenor Primary Care [...] age to complete this topic Care Teams Principal Developer Relationship Specialty Start Date End Date Sergo Villasenor PA PCP - General Internal Medicine 02/02/19
== END 2024-12-09 10:34 | disposition home or self-care (01) ==
PROVIDERS: PCP Physician Assistant; Visit Provider Physician Assistant
DX: G44.019 Episodic cluster headache, not intractable (principal)

== ENCOUNTER → 2024-12-09 10:01 | Outpatient (BNVA) | payer MEDICARE, SELFPAY | PROVIDERS: PCP Physician Assistant; Visit Provider Physician Assistant | DX: G44.019 Episodic cluster headache, not intractable (principal) | CPT/HCPCS: 99212 ==

== ENCOUNTER 2025-03-18 15:27 | Outpatient (AMB) | payer MEDICARE, SELFPAY ==
--- NOTE | 2025-03-18 15:27 | MHC.OFFVIS ---
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 Intake Note: Paresthesia of the skin Licensed Pharmacist Required: No Accompanied by: Spouse Allergies No Known Allergies (No Known Allergies*) Allergy (Verified 03/18/25 15:27) Medication List - Last Reconciled 03/18/25 by Shena Schroeder MD amitriptyline mg PO conjugated estrogens (Premarin) vaginal DAILY fluoxetine 80 mg PO DAILY lamotrigine 300 mg PO BEDTIME lorazepam 1 mg PO TID PRN risperidone 4 mg PO BEDTIME sumatriptan succinate take 1 tab at onset of headache; if no relief may repeat 1 tab after at least 2 hrs; max = 4 tabs/24 hr PO 30 days HPI Comments Details: 64y/o female comes for evaluation of facial numbness, paresthesias and severe headaches. 5 mths ago she started having tingling in her left side of her face and severe headaches in her left temperoparietal region.she is not able to recollect how the pain was but had photophobia. phonophobia . No change in vision no fever no skin changes.she denies any electric shock like sensations. chewing or swallowing did not worsen the pain She went to ER- tested for lyme - negative, inflammatory markers normal , CT brain normal These symptoms lasted 1 month . No neck pain . she denies any h/o migraines or head injury .Her PCP prescribed sumatriptan 25 mg which she did not take. [facility] Medical History Left facial numbness Persistent headaches Urinary incontinence Cervical cancer screening Osteoporosis screening Diabetes mellitus screening Bipolar disorder Surgical History History of endometrial ablation Hx of tubal ligation Hx of endoscopy History of colonoscopy Family History Father Family history of high blood pressure History of macular degeneration Mother Hx of type 2 diabetes mellitus Family history of Alzheimer's disease Social History Household Members: Spouse Housing: House Alcohol intake: never Patient Tobacco Use Status: Former Tobacco user Tobacco use type: Cigarette e-Cigarette/Vaping Use: Never Used Second Hand Smoke Exposure: Yes Do you have thoughts of harming others: None service: No Current occupational status: disabled Cognitive needs: No Hearing needs: No Vision needs: No Female Reproductive History Menstrual Age of Menarche: 10 Physical Exam Vital Signs: Last Vital Signs Pulse 79 03/18/25 15:28 BP 124/80 03/18/25 15:28 Pulse Ox 100 03/18/25 15:28 Oxygen Delivery Method Room Air 03/18/25 15:28 BMI result Body Mass Index 21.0 Const General: cooperative, healthy appearing and comfortable Nutritional Appearance: average body habitus Orientation/consciousness: patient oriented x3 Eyes Pupils: Equal, round and reactive pupils present Neuro General: patient oriented x3, gait normal, tone normal, moves all extremities and no focal motor deficits Cranial nerves: Yes Facial sensation intact/muscles of mastication intact, Yes Equal, round and reactive pupils present, Yes Bilaterally intact EOM present, Yes Nystagmus not present, Yes Normal facial strength present, Yes Midline tongue present, Yes Symmetric palate elevation present and Yes Ability to bilaterally elevate shoulders present Cognition (Neuro): normal cognition Gait exam (Neuro): Normal gait present Motor exam (neuro): 5/5 motor strength present throughout and Normal motor muscle tone present throughout Deep tendon reflexes (DTR's): Right triceps reflex intensity grade: 1+, Left triceps reflex intensity grade: 1+, Rt Biceps (C5, C6): 1+, Left biceps reflex intensity grade: 1+, Right brachioradialis reflex intensity grade: 1+, Left brachioradialis reflex intensity grade: 1+, Right patellar reflex intensity grade: 1+ and Left patellar reflex intensity grade: 1+ Coordination: [id number] test normal Assessment & Plan Assessment & Plan (1) Persistent headaches: Comment: resolved in 2 months Code(s): R51.9 - Headache, unspecified Category: Medical (2) Left facial numbness: Comment: resolved in 2 months Code(s): R20.0 - Anesthesia of skin Category: Medical Plan Her neuro exam was normal today I will evaluate her with MRI brain to r/o structural lesions Orders: Orders MR head/brain wo con 03/18/25 G44.019 - Episodic cluster headache, not intractable, R51.9 - Headache, unspecified, R20.0 - Anesthesia of skin Coding Level of Care Code New Pt Level 4 (88064) Diagnoses Persistent headaches R51.9 Left facial numbness R20.0
[2025-03-18 15:28] VITALS: BP 124/80; PULSE 79; O2SAT 100; BMI 21.0
--- OUTSIDE RECORDS SUMMARY | 2025-03-18 15:29 | XMS_ITS | Clinical Summary ---
Author Organization [facility] ity Address [address] [place] [address] Care Team Providers Care Nurse Care Manager Name Role Phone Sergo Villasenor Primary Care Provider [phone] Social History Tobacco Use Types Packs/Day Years [...] Vaccines (1 of 2) 2008 COVID-19 Vaccine (1 - 2023-2 5 season) 2024 Depression Screening 07/29/2024 Influenza Vaccine (#1) 2025 RSV Immunization Adult Patie nts (1 [...] age to complete this topic Care Teams Nurse Care Manager Relationship Specialty Start Date End Date Sergo Villasenor PA PCP - General Internal Medicine 02/02/19
--- OUTSIDE RECORDS SUMMARY | 2025-03-18 15:29 | XMS_ITS | Clinical Summary ---
Author Organization [facility] Address [address] [facility] [address] [place] [address] Phone Care Team Providers Care Bowling Teacher Name Role Phone Sergo Villasenor Primary Care Provider [phone] Allergies No known active allergies Medications amitriptyline [...] Office Visit [facility] [address] [phone] Anton Arce MD [address] [phone] Health Maintenance Due Date Last Done Comments Breast Cancer Screening 1958 Pneumococcal Vaccine: 50+ Ye ars (1 of 2 - PCV) 1977 Colorectal Cancer Screening: Annual FOBT 2007 Colorectal Cancer Screening: Colonoscopy 2007 Colorectal Cancer Screening: Sigmoidoscopy 2007 Influenza Vaccine (#1) 2025 Hepatitis B Vaccine Aged Out No longe r eligible based on patient's age to complete this topic Insurance Medicare [facility] Medicare [facility] Care Teams Bowling Teacher Relationship Specialty Start Date End Date Sergo Villasenor PA [address] [place] [address], [address] [place] [address] PCP - General Physician Compounder Helper 05/29/21
== END 2025-03-18 16:01 | disposition home or self-care (01) ==
LOC: HO.HSMS 15:27
PROVIDERS: PCP Physician Assistant; Visit Provider Psychiatry & Neurology Neurology
DX: R51.9 Headache, unspecified (principal); R20.0 Anesthesia of skin
CPT/HCPCS: 99204

== ENCOUNTER → 2025-03-18 15:27 | Outpatient (BNVA) | payer MEDICARE, SELFPAY | PROVIDERS: PCP Physician Assistant; Visit Provider Psychiatry & Neurology Neurology | DX: G44.019 Episodic cluster headache, not intractable (principal); R20.0 Anesthesia of skin | CPT/HCPCS: 99202 ==

== ENCOUNTER → 2025-03-31 12:30 | Outpatient (BNV) | payer MEDICARE, SELFPAY | PROVIDERS: Visit Provider Psychiatry & Neurology Psychiatry | DX: F43.10 Post-traumatic stress disorder, unspecified (principal); F31.9 Bipolar disorder, unspecified; F42.9 Obsessive-compulsive disorder, unspecified; F10.21 Alcohol dependence, in remission | CPT/HCPCS: 99205 ==

== ENCOUNTER 2025-04-06 14:47 | Outpatient (REF) | payer MEDICARE, SELFPAY ==
[2025-04-06 15:10] LABS: MANUAL DIFF FLAG NO
[2025-04-06 15:49] LABS: Hematocrit 36.6 % (37.0-47.0); Hemoglobin 12.4 g/dl (12.0-16.0); Imm Gran Abs Auto 0.01 X10*3/uL (0.00-0.03); Imm Gran Pct Auto 0.3 % (0.0-0.4); Lymphocytes Absolute Auto 0.7 X10*3/uL (1.2-4.9); Mean Corpuscular HGB Conc 33.9 g/dl (31.0-35.0); Mean Corpuscular Hemoglobin 32.0 pg (27.0-33.0); Mean Corpuscular Volume 94.6 fL (80.0-98.0); NRBC Abs Auto 0.000 X10*3/uL (0.0-0.012); NRBC Pct Auto 0.0 /100WBC (0.0-0.2); Platelet Count 133 X10*3/uL (160-400); Red Blood Count 3.87 X10*6/uL (4.20-5.50); White Blood Count 3.6 X10*3/uL (4.8-10.8)
[2025-04-06 16:08] LABS: Hemoglobin A1C 125.2511 umol/L; Total Hemoglobin (HGBA1C) 3238.3436 umol/L
[2025-04-06 16:39] LABS: Parathyroid Hormone Intact 45.8 pg/mL (8.7-77.1)
[2025-04-06 16:52] LABS: Alanine Aminotransferase 22 U/L (0-31); Albumin Level 4.6 g/dL (3.5-5.0); Alkaline Phosphatase 59 U/L (39-117); Anion Gap 11 (12-20); Aspartate Amino Transferase 22 U/L (5-31); Blood Urea Nitrogen 25 mg/dL (9-16); Calcium 10.4 mg/dL (8.4-10.2); Carbon Dioxide 32 mmol/L (22-29); Chloride 104 mmol/L (96-108); Estimated Glomerular Filt Rate 46; Iron 79 mcg/dL (30-160); Magnesium 2.0 mg/dL (1.6-2.6); Percent Iron Saturation 34 % (15-50); Potassium 4.4 mmol/L (3.3-5.1); Sodium 143 mmol/L (135-145); Total Iron Binding Capacity 234 mcg/dL (228-428); Total Protein 7.0 g/dL (6.5-8.0); Unsaturated Iron Binding 155 ug/dL
[2025-04-06 17:00] LABS: Free T4 (Free Thyroxine) 1.06 ng/dL (0.71-1.85); Thyroid Stimulating Hormone 1.91 uIU/mL (0.32-4.0)
[2025-04-06 17:07] LABS: Folate 10.5 ng/mL (> or = 4.0); Vitamin B12 880 pg/mL (200-900)
--- OUTSIDE RECORDS SUMMARY | 2025-04-06 17:15 | XMS_ITS | Clinical Summary ---
Author Organization [facility] Address [address] [facility] [address] [place] [address] Phone Care Team Providers Care Elementary School Professional Name Role Phone Sergo Villasenor Primary Care Provider [phone] Allergies No known active allergies Medications amitriptyline [...] Care Team (Late st Contact Info) Description 05/01/2025 Orders Only [facility] [address] [phone] Anton Arce MD [facility] [phone] Stage 3 chronic kidney disease, not otherwise specified (HCC) 11/01/2025 4:00 PM EDT Office Visit [facility] [address] [phone] Anton Arce MD [address] [phone] Health Maintenance Due Date Last Done Comments Breast Cancer Screening 1958 Pneumococcal Vaccine: 50+ Ye ars (1 of 2 - PCV) 1977 Colorectal Cancer Screening: Annual FOBT 2007 Colorectal Cancer Screening: Colonoscopy 2007 Colorectal Cancer Screening: Sigmoidoscopy 2007 Influenza Vaccine (#1) 2025 Hepatitis B Vaccine Aged Out No longe r eligible based on patient's age to complete this topic Insurance Medicare [facility] Medicare [facility] Care Teams Elementary School Professional Relationship Specialty Start Date End Date Sergo Villasenor PA [address], [address] [place] [address] PCP - General Physician Eviction Specialist 05/29/21
--- OUTSIDE RECORDS SUMMARY | 2025-04-06 17:15 | XMS_ITS | Clinical Summary ---
Author Organization [facility] ity Address [address] [place] [phone] Care Team Providers Care Auto Transmission Specialist Name Role Phone Sergo Villasenor Primary Care [...] 2008 Zoster Vaccines (1 of 2) 2008 Depression Screening 07/29/2024 COVID-19 Vaccine (1 - 2023-2 5 season) 2025 Influenza Vaccine (#1) 2025 RSV Immunization Adult [...] age to complete this topic Care Teams Auto Transmission Specialist Relationship Specialty Start Date End Date Sergo Villasenor PA PCP - General Internal Medicine 02/02/19
[2025-04-10 05:03] LABS: Amitriptyline, Serum 202 mcg/L; Nortriptyline, Serum 164 mcg/L
== END 2025-04-06 14:48 | disposition home or self-care (01) ==
LOC: HO.LAB 14:47
PROVIDERS: PCP Physician Assistant; Visit Provider Psychiatry & Neurology Psychiatry
DX: Z13.1 Encounter for screening for diabetes mellitus (principal); F31.9 Bipolar disorder, unspecified
CPT/HCPCS: 36415; 80053; 80335; 82306; 82607; 82746; 83036; 83090; 83540; 83735; 83970; 84100; 84425; 84439; 84443; 85025; 85652

== ENCOUNTER 2025-04-15 12:30 | Outpatient (RCR) | payer MEDICARE, SELFPAY ==
[2025-03-25 11:50] VITALS: BMI 20.6
[2025-03-25 11:51] VITALS: BP 120/70; PULSE 64; TEMP 36.2
--- NOTE | 2025-03-25 12:35 | PC.ADMIT ---
Patient is a 64 year old female who was referred by [facility] secondary to anxiety and fears that her of 34 years is going to divorce her. Patient had a disagreement with her however reports they are not . Patient also reports her sister in law and her with Parkinson's disease recently moved in their home in October 2024 which has caused increased stress in the home. Patient is alert and oriented x4. She is calm and cooperative. She presented with depressed mood tearful affect at times. She denied SI, no HI. She was given a copy of her safety plan if needed. Medications updated with patient and patient's pharmacy. She reports taking her medications as prescribed.
--- NOTE | 2025-03-25 15:08 | HO.PHP ---
Ragini's case was opened during weekly team treatment meeting
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
--- NOTE | 2025-04-01 13:50 | HO.PHP ---
[facility] staff member met with Ragini for 50 minutes due to her becoming emotionally dysregulated after community meeting. PHP staff member explored with Ragini what was occurring. Ragini informed the clinician that she is struggling with the transition around her 's sister and her moving into her home. Ragini shared that she very rarely utilizes the kitchen but did state she had a shelf where she would put her keys and wallet on. Ragini voiced that her 's sister has been unpacking their kitchen items and they took over her shelf and she no longer has her place for the keys. Ragini was crying throughout this encounter and appeared to be displaying an odd tic like and jerking behavior. [facility] staff member explored with Ragini if she had shared how she is feeling with her . Ragini noted that she had but is frustrated because he told her to find a new place for the keys. Ragini continued to discuss other concerns around trying to adjust to living with housemates. PHP staff member encouraged Ragini to focus on what she can control and if she is seeking change, then she should vocalize her feelings and set boundaries. Ragini just kept repeating that she can't. When asked why she can't she didn't have a reason. Ragini also expressed that she doesn't want to become filled with rage and shared two times she experienced rage. PHP staff member explored what rage looks like for her. Ragini mentioned that she just yells and gets angry. Ragini disclosed she has never harmed anyone or had thoughts about wanting to harm others. Ragini also shared how she was recently evaluated by crisis and they sent her here to get out of the home and to focus on her mental health. [facility] staff member explored if they discussed respite with her and she said they had but she did not want to engage because she was told that she would be there for 5 days. PHP staff member disclosed that if her current environment is too triggering and affecting her mental health to a point she is unable to work on her mental health, then she strongly encourages her to explore respite. [facility] staff member informed Ragini that she can go to our ED and they will help with a respite placement. Ragini appeared receptive. [facility] staff member told Ragini that she would like for her to get back to group and encouraged her to process her feels around certain situations. Ragini said that she is not going to have enough time if she returns to group. PHP staff member said she has plenty of time and they still have 20 minutes left. Ragini continued to state reasons to how she preceives the group process to look and she claims that she never has enough time to share or even share at all. PHP staff member voiced that she will encourage the clinician to allow her the space. Ragini just stared blankly, in which the PHP staff member got up and Ragini followed her back to the group.
== END 2025-04-15 23:59 | disposition home or self-care (01) ==
LOC: HO.PHPA 12:30
PROVIDERS: Visit Provider Psychiatry & Neurology Psychiatry
DX: F43.10 Post-traumatic stress disorder, unspecified (principal); F31.9 Bipolar disorder, unspecified; F42.9 Obsessive-compulsive disorder, unspecified; F10.21 Alcohol dependence, in remission; Z79.899 Other long term (current) drug therapy
CPT/HCPCS: 90791; 90853

== ENCOUNTER → 2025-06-04 16:27 | Outpatient (BNV) | payer MEDICARE, SELFPAY | PROVIDERS: PCP Physician Assistant; Visit Provider Radiology Diagnostic Radiology | DX: G44.019 Episodic cluster headache, not intractable (principal) | CPT/HCPCS: 70551 ==

== ENCOUNTER 2025-06-04 16:31 | Outpatient (REF) | payer MEDICARE, SELFPAY ==
--- NOTE | ~2025-06-04 | MR_ITS ---
EXAMINATION: MR BRAIN WITHOUT CONTRAST CLINICAL INFORMATION: G 44.0 19. Episodic cluster headache. COMPARISON: Correlated to CT dated October 04, 2024. TECHNIQUE: MRI of the brain was obtained using routine sequences without contrast. FINDINGS: Patient's motion artifact. No restricted diffusion. No acute intracranial hemorrhage, mass effect, midline shift, hydrocephalus or herniation. Bilateral, a few scattered, nonspecific, subcortical and deep white matter hyperintense T2 FLAIR signal foci involving centrum semiovale and robles radiata, the most conspicuous in the right cingulate gyrus. Posterior cranial fossa contents demonstrated no signal abnormality or mass effect. Craniocervical junction is intact with normal position of the cerebellar tonsils. Sellar/suprasellar region is normal. Flow-void signal within the main cerebral vessels is normal. Prominence of the extra-axial CSF spaces cerebral sulci and ventricles likely central volume loss. Hyperintense T2 FLAIR signal in the mastoid air cells. Extra convex nasal septum deviation. Mild mucosal thickening, ethmoid air cells. MR/MR head/brain wo con IMPRESSION: Nonspecific white matter T2 FLAIR signal which could be seen patients with headache/migraines. Inflammatory process in the mastoid air cells. Electronically signed by: Andre Pereyra MD 06/07/2025 06:48 AM EST
--- OUTSIDE RECORDS SUMMARY | 2025-06-04 16:54 | XMS_ITS | Clinical Summary ---
Author Organization [facility] Address [address] [facility] [address] [place] [address] Phone Care Team Providers Care Photo Offset Printer Name Role Phone Sergo Villasenor Primary Care Provider [phone] Allergies No known active allergies Medications amitriptyline [...] Encounters Date Type Department Care Team Description 05/01/2025 Orders Only [facility] [address] [facility] [address] [place] [phone] Anton Arce MD Stage 3 [...] Visit [facility] [address] [phone] Anton Arce MD [address] [phone] Health Maintenance Due Date Last Done Comments Breast Cancer Screening 1958 Pneumococcal Vaccine: 50+ Ye ars (1 of 2 - PCV) 1977 Colorectal Cancer Screening: Annual FOBT 2007 Colorectal Cancer Screening: Colonoscopy 2007 Colorectal Cancer Screening: Sigmoidoscopy 2007 Influenza Vaccine (#1) 2025 Hepatitis B Vaccine Aged Out No longe r eligible based on patient's age to complete this topic Insurance Medicare [facility] Medicare [facility] Care Teams Photo Offset Printer Relationship Specialty Start Date End Date Sergo Villasenor PA [address] [facility], [address] [place] [address] PCP - General Physician Furnace Charger 05/29/21
--- OUTSIDE RECORDS SUMMARY | 2025-06-04 16:54 | XMS_ITS | Clinical Summary ---
Author Organization [facility] ity Address [address] [place] [phone] Care Team Providers Care Cnc Wood Lathe Operator Name Role Phone Sergo Villasenor Primary Care [...] age to complete this topic Care Teams Cnc Wood Lathe Operator Relationship Specialty Start Date End Date Sergo Villasenor PA PCP - General Internal Medicine 02/02/19
== END 2025-06-04 16:32 | disposition home or self-care (01) ==
LOC: HO.MRI 16:31
PROVIDERS: PCP Physician Assistant; Visit Provider Psychiatry & Neurology Neurology
DX: G44.019 Episodic cluster headache, not intractable (principal); R20.0 Anesthesia of skin
CPT/HCPCS: 70551

== ENCOUNTER 2025-06-30 12:18 | Outpatient (AMB) | payer MEDICARE, SELFPAY ==
--- NOTE | 2025-06-30 12:10 | MHC.OFFVIS ---
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 she had 1 episode since last visit- she responded to sumatriptan 25 mg but needed 3 doses.MRI- showed nonspecific changes. History from last visit-12 mths ago she started having tingling in her left side of her face and severe headaches in her left temperoparietal region.she is not able to recollect how the pain was but had photophobia. phonophobia . No change in vision no fever no skin changes.she denies any electric shock like sensations. chewing or swallowing did not worsen the pain She went to ER- tested for lyme - negative, inflammatory markers normal , CT brain normal These symptoms lasted 1 month . No neck pain . she denies any h/o migraines or head injury .Her PCP prescribed sumatriptan 25 mg which she did not take. [facility] Medical History (Updated 06/30/25 @ 13:28 by Shena Schroeder MD) Migraine with aura Left facial numbness Persistent headaches Urinary incontinence Cervical cancer screening Osteoporosis screening Diabetes mellitus screening Bipolar disorder Surgical History History of endometrial ablation Hx of tubal ligation Hx of endoscopy History of colonoscopy Family History Father Family history of high blood pressure History of macular degeneration Mother Hx of type 2 diabetes mellitus Family history of Alzheimer's disease Social History Household Members: Spouse Housing: House Alcohol intake: never Comment: Discharge planned for 04/08/25 Patient Tobacco Use Status: Former Tobacco user Tobacco use type: Cigarette e-Cigarette/Vaping Use: Never Used Second Hand Smoke Exposure: Yes service: No Current occupational status: disabled Cognitive needs: No Hearing needs: No Vision needs: No Female Reproductive History Menstrual Age of Menarche: 10 Physical Exam Const General: cooperative Orientation/consciousness: patient oriented x3 Neuro Other: speech - normal cognition normal mood normal General: patient oriented x3 Telehealth Telehealth Telehealth Platform: Telephone Location of provider rendering services: practice address Location of patient: address on file Patient Identification confirmed using: Name, : Yes Telehealth method: voice only Patient verbally consented to treatment: Yes Patient verbally consented to billing insurance company: Yes Patient informed of any privacy concerns related to visit: Yes Minutes spent on Phone/Video with Pt.: 16 Results Reviewed Results Reviewed: MRI Brain-Nonspecific white matter T2 FLAIR signal which could be seen patients with headache/migraines. Inflammatory process in the mastoid air cells. Assessment & Plan Assessment & Plan (1) Migraine with aura: Comment: with sensory aura Code(s): G43.109 - Migraine with aura, not intractable, without status migrainosus Category: Medical (2) Left facial numbness: Comment: resolved in 2 months Code(s): R20.0 - Anesthesia of skin Category: Medical Plan MRI Brain results discussed I suggested to increase sumatriptan to 50mg as needed for migraine. Coding Level of Care Code Tele Est Pt Level 3 (04772) Diagnoses Migraine with aura G43.109 Left facial numbness R20.0 Time Spent (min) 16
--- OUTSIDE RECORDS SUMMARY | 2025-06-30 14:34 | XMS_ITS | Clinical Summary ---
Author Organization [facility] it[facility] Address [id number] [place] [id number] Care Team Providers Care Access Representative Name Role Phone Sergo Villasenor Primary Care [...] Depression Screening 07/29/2024 COVID-19 Vaccine (1 - 2024-2 6 season) 2025 Influenza Vaccine (#1) 2025 RSV [...] age to complete this topic Care Teams Access Representative Relationship Specialty Start Date End Date Sergo Villasenor PA PCP - General Internal Medicine 02/02/19
== END 2025-07-02 08:19 | disposition home or self-care (01) ==
LOC: HO.HSMS 12:18
PROVIDERS: PCP Physician Assistant; Visit Provider Psychiatry & Neurology Neurology
DX: G43.109 Migraine with aura, not intractable, without status migrainosus (principal); R20.0 Anesthesia of skin
CPT/HCPCS: 99213